=== PATIENT | female | born 1980 | race Caucasian/White ===

== ENCOUNTER 2020-04-09 06:30 | Inpatient (IN) | payer OTHER, SELFPAY ==
[2020-04-09] VITALS (14 sets, daily range): BP systolic 117–142; BP diastolic 64–89; PULSE 85–103; RESP 13–18; TEMP 36.6–36.7; O2SAT 98
[2020-04-09] MEDS: OXYTOCIN 30 UNITS/NS 500 ML 30 UNITS/500 ML BAG 999 UNITS IV CONT (06:54)
[2020-04-09 07:07] LABS: Basophils Absolute Auto 0.1 K/mm3 (0.0-0.1); Basophils Percent Auto 0.4 % (0.2-1.2); Eosinophils Absolute Auto 0.1 K/mm3 (0-0.3); Eosinophils Percent Auto 0.5 % (0-4.4); Hematocrit 38.2 % (37.0-47.0); Hemoglobin 12.5 g/dL (12.0-15.0); Immature Granulocyte Absolute 0.41 K/mm3 (0.00-0.031); Immature Granulocyte Percent A 3.1 % (0-0.5); Lymphocytes Absolute Auto 2.14 K/mm3 (0.9-3.2); Lymphocytes Percent Auto 16.4 % (18.3-44.2); Mean Corpuscular HGB Conc 32.7 g/dl (32-36); Mean Corpuscular Hemoglobin 29.8 pg (26-34); Mean Corpuscular Volume 91.2 fl (80-100); Mean Platelet Volume 11.2 fl (7.4-10.4); Monocytes Absolute Auto 0.8 K/mm3 (0.1-0.6); Neutrophils Absolute Auto 9.6 K/mm3 (1.3-6.7); Neutrophils Percent Auto 73.6 % (45.5-73.1); Nucleated Red Blood Cells Perc 0.3 % (0.0-0.2); Platelet Count Result 204 k/mm3 (150-375); Red Blood Count 4.19 M/mm3 (4.2-5.4); Red Cell Distribution Width 13.7 % (11.5-14.5); White Blood Count 13.1 K/mm3 (4.5-10.0)
--- NOTE | 2020-04-09 07:28 | PM.IMHP ---
H&P: HPI History of Present Illness Date/Time: 04/09/20 07:28 Chief Complaint: Term Narrative: Kellie Gramajo is a 39 year old female 3 para 3 who presented after delivery in the ambulance. She has no care. She thought she was 32 weeks. The infant appears term. She was known to have gestational diabetes in a previous . She began having contractions and quickly progressed through labor. She has no complaints at this time. She denies any nausea, vomiting, fever, chills. She denies any chest pain or shortness of breath. she denies vaginal bleeding at this time. Patient has 2 previous term deliveries. she has an unremarkable medical and surgical history. Review of Systems Constitutional: Constitutional: Reports no additional constitutional complaints, Denies fatigue, Denies headache(s), Denies lethargy and Denies weakness ENT: Reports as per HPI, Denies headache(s) and Denies neck pain Cardiovascular: Cardiovascular: Denies chest pain, Denies diaphoresis, Denies leg edema, Denies palpitations and Denies dyspnea Respiratory: Respiratory: Denies hemoptysis, Denies dyspnea and Denies wheezing Gastrointestinal: Gastrointestinal: Denies abdominal pain, Denies melena, Denies bloating, Denies hematochezia, Denies nausea and Denies vomiting Genitourinary: Genitourinary: Reports no additional female genitourinary complaints Musculoskeletal: Musculoskeletal: Denies joint swelling, Denies neck pain, Denies numbness and Denies stiffness Neurologic: Denies Abnormal speech present, Denies confusion, Denies headache(s), Denies numbness and Denies weakness Psychiatric: Psychiatric: Denies anxiety, Denies confusion, Denies depression, Denies homicidal ideation and Denies suicidal ideation Endocrine: Endocrine: Denies fatigue and Denies palpitations Allergic/Immunologic: Allergic/Immunologic: Denies wheezing Meds Home Medications and Allergies Allergies Allergy/AdvReac Type Severity Reaction Status Date / Time latex Allergy Mild Verified 02/26/18 22:19 Vital Signs Vital Signs - 24 hr 04/09/20 06:39 04/09/20 06:46 04/09/20 07:13 Pulse Rate 103 H 99 91 Blood Pressure 117/68 122/77 138/80 04/09/20 07:16 Pulse Rate 88 Blood Pressure 141/78 H Exam Const: General: healthy appearing, comfortable and no acute distress; No confusion Orientation/consciousness: No confusion Eyes: Direct Ophthalmoscopy: No photophobia Resp: Auscultation: clear to auscultation bilaterally, no rales, no rhonchi and no wheezes Cardio: Rate: regular rate Heart sounds: no click, no murmurs and no rubs GI: Inspection: non-distended GI Palp: No abdominal tenderness Auscultation: normal bowel sounds : Other: The vulva vagina and cervix appear normal for the immediate . No lacerations. There is some broken skin the posterior fourchette. Neuro: General: No confusion Speech: No Abnormal speech present Extrem: General: normal to inspection, no pedal edema and no calf tenderness H&P: Results Labs Labs: Short CBC 04/09/20 Range/Units 06:58 WBC 13.1 H (4.5-10.0) K/mm3 Hgb 12.5 (12.0-15.0) g/dL Hct 38.2 (37.0-47.0) % Plt Count 204 (150-375) k/mm3 Assessment and Plan Assessment and plan (1) Term delivered: Code(s): O80 - Encounter for full-term uncomplicated delivery Status: Acute (2) No care in current : Code(s): O09.30 - Supervision of with insufficient care, unspecified trimester Status: Acute Additional Plan this patient is a 39-year-old 3 para 3 who delivered in the ambulance. She has no complaints at this time. Her examination of the vagina and vulva were normal. The cervix appears intact. Placenta was delivered. We will obtain labs. She will be observed for 2 days and released. The baby appears well.
[2020-04-09] MEDS: OXYTOCIN 30 UNITS/NS 500 ML 30 UNITS/500 ML BAG 125 UNITS IV CONT (07:30)
[2020-04-09 07:31] LABS: Barbiturate Screen Urine Negative (Negative); Benzodiazepines Screen Urine Negative (Negative)
[2020-04-09 07:33] LABS: Cannabinoid Screen Urine Positive (Negative); Cocaine Screen Urine Negative (Negative); Methadone Screen Urine Negative (Negative); Opiate Screen Urine Negative (Negative); Phencyclidine Screen Urine Negative (Negative)
[2020-04-09 07:58] LABS: Amphetamine Screen Urine Positive (Negative)
[2020-04-09 08:01] LABS: Hepatitis B Surface Antigen Negative (Negative)
[2020-04-09 08:02] LABS: Rubella IgG Antibody 1.6 IU/ML
[2020-04-09 08:08] LABS: HIV 1/2 Ab P24 Ag Result Negative (Negative)
--- NOTE | 2020-04-09 08:10 | PC.NURSE ---
0620 Call from EMS about patient that states she is 32 weeks , with the urge to push. Patient states she is a patient of Dr. Melchor, but has had no care this . 0628- Patient arrived via ambulance. born at 0625, delivered by EMS. handed off to nursery personnel. Patient brought to room 106 via stretcher, transferred to bed. Placenta still intact. 06- Dr. Melchor called. Coming in. 0640- IV started, 18 g in L Hand. 0654- Placenta removed by Lucrecia Estevez RN, Pitocin infusing now at 999mls/hr. 07- Dr. Melchor at bedside. Vaginal exam completed, patient intact. 0810- Patient positive for amphetamines and marijuana. Upon entering room, patient has head covered with a blanket. patient questioned about drug use, denies any use, states that she hasnt taken anything. She has been asleep on the couch for days because of the discomfort from her hemorrhoids. states that a roommate in the house had drugs but they have gotten rid of all of them. The only thing she has taken has been extra strength tylenol. Patient informed of need to know what she has taken to help with care, she denies taking anything.
--- NOTE | 2020-04-09 08:34 | LDADM ---
This patient, Kellie Gramajo, was admitted to Labor/Delivery/Recovery 106 on 04/09/20 at 06:30. Plans for labor, pain management and were discussed with patient. Patient/family oriented to hospital policies and general routines including ID bracelet, bed and alarms, visiting hours, pain management, procedures, bathroom and other care routines, personal items, smoking policy, room service/diet and guest tray routines, infant security routines, and visiting hours. Patient/Family are encouraged to report perceived risks to care and to ask questions if they do not understand what they are told or what they should do. See [facility] for further documentation.
--- NOTE | 2020-04-09 10:25 | PC.NURSE ---
Patient transferred to post room #284 per wheelchair from labor and delivery. Support person present. Oriented to unit, room, information board, rooming in, admission packet and security measures. Patient verbalizes understanding.
--- NOTE | 2020-04-09 15:17 | PCCCNOTE ---
Care Coordination spoke with pt. this afternoon to discuss discharge planning. Pt.'s current discharge plan is to return home with her and 2 year son and baby. Pt. states that they have everything they need to safely bring baby home and that she will work on obtaining WIC to assist with providing formula for baby. Pt. was informed that she tested positive for Marijuana and Meth at time of admission. Pt. denies drug use and states that she was positive because of her roommate's drug use. Pt. states that her roommate no longer lives with them. Pt. delivered baby at 32 weeks and baby was transferred to [facility] after having difficulty breathing. Baby is now on a vent. CC informed pt. that a report would be made to [facility], pt. states understanding. CC spoke with Jazmin Parekh at [facility] who states that an urgent investigation will begin due to child's medical state. Pt.'s intake number with [facility] ins [id number]. Will follow.
--- NOTE | 2020-04-09 17:30 | PC.NURSE ---
DCFS worker Adeline Calderón here to see patient. A copy of her ID was placed on the patient's chart. Adeline states that she left messages with Libra in care coordination.
[2020-04-09] MEDS: IBUPROFEN 600 MG TABLET PO (20:50)
[2020-04-10 04:56] LABS: Hematocrit 32.2 % (37.0-47.0); Hemoglobin 10.7 g/dL (12.0-15.0)
[2020-04-10] MEDS: IBUPROFEN 600 MG TABLET PO (05:49)
[2020-04-10 08:10] VITALS: BP 116/72; PULSE 94; RESP 18; TEMP 36.5
--- NOTE | 2020-04-10 08:33 | PM.OBPNVD ---
OB - PN: Subj Subjective Date/time seen: 04/10/20 08:33 Patient comments: no complaints baby status: doing well OB - PN: Obj Data Labs CBC & Chem 7: 04/10/20 04:25 Labs: Laboratory Results - last 24 hr 04/09/20 04/10/20 06:58 04:25 Hgb 10.7 L Hct 32.2 L Blood Type O Positive Antibody Screen Negative OB - PN A/P Plan day: 1 Plan: routine care Time Spent With Patient Time: Total time spent is greater than 50% in coordination of care (as documented) at patient's floor/unit and/or counseling patient: Time with patient: less than 15 minutes Review of Systems Review of Systems: All systems reviewed & are unremarkable except as noted in HPI and below Exam Narrative: Exam Narrative: Fundus firm and vaginal flow controlled. No lower ext redness, warmth, or edema. Negative homans. Denies h/a, v/d or e/p. Reflexes normal. Const: General: comfortable Chest: Breast/axilla inspection: normal inspection of the breasts Resp: Effort & Inspection: normal respiratory effort Cardio: Rate: regular rate GI: GI Palp: Yes Soft to palpation Psych: Appearance: grossly normal Affect: normal affect Attitude: cooperative Thought content: Yes Normal thought content present Judgement: Good judgement present (Psych)
--- NOTE | 2020-04-10 09:45 | PC.NURSE ---
Patient received instructions on viewing the discharge video Mother & Baby Care, The First Two Weeks . Patient was given the opportunity and encouraged to ask questions. Patient verbalized understanding of information shared and has been given the mother/baby guide for home reference.
[2020-04-12 07:10] LABS: Rapid Plasma Reagin Non-Reactive (NonReactive)
--- NOTE | 2020-04-19 07:56 | PM.OBTRLD ---
OB - Triage/Final Diagnosis Evaluation Laboratory results: Laboratory Tests 04/09/20 04/09/20 04/09/20 06:58 06:58 06:58 WBC 13.1 H RBC 4.19 L Hgb 12.5 Hct 38.2 MCV 91.2 MCH 29.8 MCHC 32.7 RDW 13.7 Plt Count 204 MPV 11.2 H Immature Gran % (Auto) 3.1 H Neut % (Auto) 73.6 H Lymph % (Auto) 16.4 L Marin % (Auto) 6.0 Eos % (Auto) 0.5 Baso % (Auto) 0.4 Lymph # (Auto) 2.14 Marin # (Auto) 0.8 H Eos # (Auto) 0.1 Baso # (Auto) 0.1 Abs Immat Gran (auto) 0.41 H Absolute Neuts (auto) 9.6 H Absolute Nucleated RBC 0.0 Nucleated RBC % 0.3 H Urine Opiates Screen Urine Methadone Screen Ur Barbiturates Screen Ur Phencyclidine Scrn Ur Amphetamine Screen U Benzodiazepines Scrn Urine Cocaine Screen U Cannabinoids Screen RPR Non-reactive Hep Bs Antigen HIV 1&2 Ab/P24 Ag 4thGn Negative Rubella IgG Antibody Blood Type Antibody Screen 04/09/20 04/09/20 04/09/20 06:58 06:58 06:58 WBC RBC Hgb Hct MCV MCH MCHC RDW Plt Count MPV Immature Gran % (Auto) Neut % (Auto) Lymph % (Auto) Marin % (Auto) Eos % (Auto) Baso % (Auto) Lymph # (Auto) Marin # (Auto) Eos # (Auto) Baso # (Auto) Abs Immat Gran (auto) Absolute Neuts (auto) Absolute Nucleated RBC Nucleated RBC % Urine Opiates Screen Urine Methadone Screen Ur Barbiturates Screen Ur Phencyclidine Scrn Ur Amphetamine Screen U Benzodiazepines Scrn Urine Cocaine Screen U Cannabinoids Screen RPR Hep Bs Antigen Negative HIV 1&2 Ab/P24 Ag 4thGn Rubella IgG Antibody 1.6 L Blood Type O Positive Antibody Screen Negative 04/09/20 04/10/20 07:07 04:25 WBC RBC Hgb 10.7 L Hct 32.2 L MCV MCH MCHC RDW Plt Count MPV Immature Gran % (Auto) Neut % (Auto) Lymph % (Auto) Marin % (Auto) Eos % (Auto) Baso % (Auto) Lymph # (Auto) Marin # (Auto) Eos # (Auto) Baso # (Auto) Abs Immat Gran (auto) Absolute Neuts (auto) Absolute Nucleated RBC Nucleated RBC % Urine Opiates Screen Negative Urine Methadone Screen Negative Ur Barbiturates Screen Negative Ur Phencyclidine Scrn Negative Ur Amphetamine Screen Positive A U Benzodiazepines Scrn Negative Urine Cocaine Screen Negative U Cannabinoids Screen Positive A RPR Hep Bs Antigen HIV 1&2 Ab/P24 Ag 4thGn Rubella IgG Antibody Blood Type Antibody Screen Final Diagnosis (1) False labor: Code(s): O47.9 - False labor, unspecified Status: Acute
--- NOTE | 2020-05-03 07:52 | PM.OBDSVD ---
DS: Admitting Diagnosis Admitting Diagnosis Admitting Diagnosis: Vaginal delivery en route. DS: Discharge Diagnosis Discharge Diagnosis (1) Vaginal delivery: Code(s): O80 - Encounter for full-term uncomplicated delivery Status: Acute OB - DS: Summary OB Procedures : None OB Procedures Intrapartum: Spontaneous Vag Delivery OB Procedures: : None Time Spent with Patient Time attestation: Total time spent providing and/or coordinating discharge services: Discharge Plan Discharge Attending physician on discharge: Kael Melchor Consulting providers: Elenita Roman Discharging Clinician: Elenita Roman Patient Disposition: Home, Self-Care Activity: pelvic rest Diet: as tolerated Discharge Instructions: PP visit at hospital on Sunday. 1 week follow up in the office for bp check. PIH precautions given. Pt is aware the recommended stay is 72 hours but wants to go see at [facility]. Education: Mom and Baby Guide and Preeclampsia Handout Given to: Mother Follow-Up: Call your delivering provider's office for an appointment to be seen in: 1 Week Mom and baby should come to the [facility] for the follow-up appointment. Appointment Date/Time: April 12, 2020 at 3:00 pm What to expect at your follow-up visit: Physical Assessment Call [phone] if you are unable to keep your appointment time. BREAST CARE: * Wear a snug supportive bra. * For engorgement discomfort: Bottle Feeding: * May apply ice packs EPISIOTOMY/PERINEAL CARE: * Until bleeding stops, use your terri bottle after urinating * Change your pad frequently throughout the day * You may take sitz baths several times a day (fill your bathtub with warm water and soak for 20 minutes.) Do NOT bathe in the water * No tub baths until seen by your physician - You may shower ACTIVITY: * Rest as much as possible. * Do not exercise or lift anything heavier than your baby (such as laundry or other children.) * Avoid stairs or driving as much as possible. * Do not put anything into the vagina. No douching, tampons, or sexual activity until seen by physician. NOTIFY PHYSICIAN IF YOU HAVE ANY QUESTIONS OR IF ANY OF THE FOLLOWING SYMPTOMS OCCUR: * If your perineum becomes red, swollen, or more painful than what you have experienced in the hospital. * If your vaginal bleeding becomes foul smelling. * If your vaginal bleeding becomes more heavy than a period or if your bleeding changes from pink to bright red. However, you may pass an occasional walnut-sized clot once or twice for the first week . * If you experience a sharp, shooting pain in you calves. * If you discover a hard, reddened area on your breast or if you experience flu-like symptoms. DIET: * Eat regular, well-balanced meals. * Drink plenty of fluids daily. Stand Alone Forms: General Discharge Information Follow-up/Referrals: Kael Melchor MD [Physician] - Discharge Medications: No Action dicyclomine 10 mg capsule 10 mg PO TID Qty: 20 RF: 0 ondansetron HCl [Zofran] 4 mg tablet 4 mg PO Q6H Qty: 20 RF: 0 loperamide [Imodium A-D] 2 mg capsule 2 mg PO Q4H PRN (Reason: loose stool) Qty: 30 RF: 0 Date of admission: 04/09/20 06:30 Primary Care Provider: PHYSICIAN,FLUID DYNAMICIST Admitting Provider: Kael Melchor Attending physician on admission: Kael Melchor Condition: Stable
== END 2020-04-10 10:33 | disposition home or self-care (01) | DRG 561 ==
LOC: ANHLDR 07:14 → ANHOB2 10:35
PROVIDERS: Admitting Provider Obstetrics & Gynecology; Visit Provider Obstetrics & Gynecology
DX: Z39.0 Encounter for care and examination of mother immediately after delivery (principal)
CPT/HCPCS: 36415; 80307; 85014; 85018; 85025; 86592; 86703; 86762; 86850; 86900; 86901; 87340; A9270; G0432; J2590

== ENCOUNTER 2020-04-23 17:28 | Emergency (ER) | payer OTHER, SELFPAY ==
--- NOTE | 2020-04-23 17:57 | ED.URI ---
HPI - URI/Sore Throat General Chief Complaint: Nausea/Vomiting/Diarrhea Stated Complaint: abd pain/nausea Time Seen by Provider: 04/23/20 18:02 Source: patient Mode of arrival: ambulatory Limitations: no limitations History of Present Illness HPI Narrative: Kellie Gramajo is a 39 yo female with a history of early term delivery (), gestational diabetes, methamphetamine use on drug screen at delivery on 04/09/20, who comes to express care for complaints of abdominal pain and diarrhea x3 days. She states that she is unable to eat and if she tries that she really has to go to the bathroom within 1/2-hour, has been having semiformed and diarrheal stool x3 days is able drink fluids is not running a fever has no respiratory difficulty no shortness of breath. Related Data Allergies Allergy/AdvReac Type Severity Reaction Status Date / Time latex Allergy Mild Hives Verified 04/23/20 17:32 Review of Systems Review of Systems: Narrative: CONSTITUTIONAL: Denies fever, chills, sweats. EYES: Denies visual changes, redness, discharge. ENT: Denies rhinorrhea, congestion, sore throat, otalgia. CARDIOVASCULAR: Denies chest pain, palpitations, edema. RESPIRATORY: Denies dyspnea, wheezing, cough GASTROINTESTINAL: Denies abdominal pain, has nausea, no vomiting, has diarrhea. GENITOURINARY: Denies dysuria, hematuria, abnormal discharge SKIN: Denies rash or itching. NEUROLOGIC: Denies numbness, or focal weakness. PSYCHIATRIC: Denies anxiety or depression. [facility] Family History Family History Other Hypertension Social History Social History (Updated 04/23/20 @ 18:23 by Elo Piedra CNP) Smoking packs per day: 0.25 Smoking cigarettes per day: 5.0 Smoking status: Current every day smoker Tobacco type: cigarettes Substance use: current Substance use type: marijuana and amphetamines Gender identity (if verbalized by the patient): Female Spiritual care concerns: No Comments At time of signature, I agree with nursing past medical, surgical, social and family history. There is no relevant family history pertinent to the presenting complaint. Blood pressure is elevated-referred to primary care for evaluation of elevated blood pressure; patient states has follow-up with [facility] this next week Exam Narrative: Exam Narrative: GENERAL: This is a well-nourished, well-developed patient, in mild distress. HEAD: normocephalic, atraumatic. EYES: Sclera clear/white. Vision is grossly intact. EARS: External ears normal, . Hearing grossly intact. NOSE: External nose normal without nasal discharge, nares without redness, no rhinorrhea. THROAT: Mucous membranes moist, posterior pharynx mildly dry mucous membranes NECK: Neck supple, non-tender CARDIOVASCULAR: Regular rate and rhythm without murmurs, gallops, or rubs. RESPIRATORY: Clear to auscultation. Breath sounds equal bilaterally. No wheezes, rales, or rhonchi. GASTROINTESTINAL: Abdomen soft, SKIN: warm, intact with no suspicious lesions or rash, good texture and turgor. NEURO: awake, alert, and oriented to person, place and time. There were no obvious focal neurologic abnormalities. Steady gait EXTREMITIES: Normal range of motion. BACK: Nontender without deformity Course Course Emergency Course: Came to here with complaints of nausea and diarrhea x3 days. States that she eats she has to use it the bathroom within 1/2-hour has been able to drink fluids without any problem. She and are staying in the house along her 2-year-old is staying with 's mother Covid test done-negative Encourage oral fluids- started on bentyl, zofran, imodium. BRAT diet referred to primary care Vital Signs Vital signs: Vital Signs Temperature 97.1 F L 04/23/20 17:58 Pulse Rate 99 04/23/20 17:58 Respiratory Rate 18 04/23/20 17:58 Blood Pressure 132/100 H 04/23/20 17:58 Pulse Oximetry 100 04/23/20 17:58 Temperatu
[2020-04-23 17:58] VITALS: BP 132/100; PULSE 99; RESP 18; TEMP 36.2; O2SAT 100
== END 2020-04-23 18:38 | disposition home or self-care (01) ==
PROVIDERS: Emergency Provider Nurse Practitioner
DX: O99.63 Diseases of the digestive system complicating the puerperium (principal); K52.9 Noninfective gastroenteritis and colitis, unspecified; Z20.822 Contact with and (suspected) exposure to COVID-19; O99.335 Smoking (tobacco) complicating the puerperium; F17.210 Nicotine dependence, cigarettes, uncomplicated
CPT/HCPCS: 87426; 99213; C9803; G0463

== ENCOUNTER 2024-05-27 10:02 | Emergency (ER) | payer BC, SELFPAY ==
[2024-05-27 10:18] VITALS: BP 142/72; PULSE 117; TEMP 36.8; O2SAT 98
--- OUTSIDE RECORDS SUMMARY | 2024-05-27 11:33 | XMS_ITS | Clinical Summary ---
Author Organization [facility] Address [address] [place] [address] Care Team Providers Care Sports Betting Manager Name Role Phone Unavailable Primary Care Provider Unavailabl e Source Comments [facility],non-owned Affiliates and Associated Physician Practices is amultiple site organization consisting of ambulatory clinics and hospital sitesin [place], [place], [place] and [place]. This disclosure is being madepursuant to the Care Everywhere program and may not contain all information available regarding this patient. Last updated 17.[facility] Allergies Active Allergy Reactions Criticality Noted Date Comments Latex Rash Medium 09/14/2017 Medications * Be aware that medications may not be up to date on this document. Alwaysverify current medications with the patient. Medication Sig Dispensed Refills Start Date End Date Status insulin NPH (HUMULIN N; NOVOLIN N) vial 15 units before breakfast and 20 units before dinner Active Vit-Fe Fumarate-FA ( VITAMIN) 28-0.8 MG tablet Take 1 tablet by mouth once daily Active ferrous sulfate 325 (65 FE) MG tablet Take 325 mg by mouth once daily Active Active Problems Problem Noted Date Diagnosed Date Insulin controlled gestation al diabetes mellitus (GDM) during , antepartum 09/14/2017 Poor growth, affecting management of mother, antepartum condition or complication 07/19/2017 Social History Tobacco Use Types Packs/Day Years Used Date Smoking Tobacco: Never Assessed Sex and Gender Information Value Date Recorded Sex Assigned at Female 2020 2:37 PM CDT Gender Identity Female 2020 2:37 PM CDT Sexual Orientation Straight 2020 2: 37 PM CDT Last Filed Vital Signs Vital Sign Reading Time Taken Comments Blood Pressure 121/76 09/14/2017 12:33 PM CDT Pulse 76 09/14/2017 12:33 PM CDT Temperature - - Respiratory Rate - - Oxygen Saturation - - Inhaled Oxygen Concentration - - Weight - - Height - - Body Mass Index - - Plan of Treatment Health Maintenance Due Date Last Done Comments LIPID TESTING 1982 MAMMOGRAM 1982 PAP SMEAR 1982 HIV SCREENING 1997 HEPATITIS C SCREENING 12/24/2000 DTAP/TDAP/TD VACCINES (1 - Tdap) 2001 HEPATITIS B VACCINE (1 of 3 - 19+ 3-dose series) 2001 COVID-19 VACCINE ( - 2023-2 5 season) 2023 INFLUENZA VACCINE (#1) 2023 3, 12/15/2020 DEPRESSION SCREENING 04/02/2024 ZOSTER VACCINE (1 of 2) 2032 HIB VACCINE Aged Out No longer eligi ble based on patient's age to complete this topic HPV VACCINE Aged Out No longer eligi ble based on patient's age to complete this topic MENINGOCOCCAL (Group B) VACCINE Aged Out No longer eligible b ased on patient's age to complete this topic MENINGOCOCCAL VACCINE Aged Out No raul cayden eligible based on patient's age to complete this topic PNEUMOCOCCAL VACCINE Aged Out No long er eligible based on patient's age to complete this topic
--- OUTSIDE RECORDS SUMMARY | 2024-05-27 11:34 | XMS_ITS | Patient Health Summary ---
Author Organization [facility] Address [address] [address] Care Team Providers Care Aircraft Sales Representative Name Role Phone Unavailable Primary Care Provider Unavailabl e Note from [facility],non-owned Affiliates and Associated Physician Practices is amultiple site organization consisting of ambulatory clinics and hospital sitesin [place], [place], [place] and [place]. This disclosure is being madepursuant to the Care Everywhere program and may not contain all information available regarding this patient. Last updated 17.[facility] Allergies * Latex(Rash) -Medium Criticality Medications * Be aware that medications may not be up to date on this document. Alwaysverify current medications with the patient. * insulin NPH (HUMULIN N; NOVOLIN N) vial 15 units before breakfast and 20 units before dinner * Vit-Fe Fumarate-FA ( VITAMIN) 28-0.8 MG tablet Take 1 tablet by mouth once daily * ferrous sulfate 325 (65 FE) MG tablet Take 325 mg by mouth once daily Active Problems Problem Noted Date Diagnosed Date [...] - - Body Mass Index - - Procedures * SONOGRAM - COMPLETE(Performed 09/14/2017) Performed for Poor growth affecting management of mother, antepartum, single or unspecified fetus (HCC) * SONOGRAM - COMPLETE(Performed 08/10/2017) Performed for Poor growth affecting management of mother, antepartum, single or unspecified fetus (HCC) * SONOGRAM - LIMITED(Performed 08/03/2017) Performed for Poor growth affecting management of mother, antepartum, single or unspecified fetus (HCC) * SONOGRAM - COMPLETE(Performed 07/27/2017) Performed for Poor growth affecting management of mother, antepartum, single or unspecified fetus (HCC) Results * SONOGRAM - COMPLETE (09/14/2017 11:27 AM CDT) Only the most recent of3 resultswithin the time period is included. Anatomical Region Laterality Modality Other 09/14/2017 11:2 7 AM CDT Narrative 09/14/2017 5:[address] [facility] PHONE: FAX: Pat. Name: KELLIE GRAMAJO Pat. No: [id number] Study Date: 09/14/2017 11:27am , Age: 09 1980, 36 Pregnancies: 3, Para 1, Ab 1 Height: 66 in Weight: 121 lb LMP: Unknown GA by Base: 35w4d PATRIC: 10/15/2017 GA by US: 33w4d PATRIC: 10/29/2017 GA Selected: 35w4d (From Known E) PATRIC: 10/15/2017 Referring MD: Portillo Melchor MD Cast Iron Dipper: Danna Fuentes RDMS CPT4: 23721,40089,23987,53383 BMI: 19.53 Hist/Ind: Possible FGR (borderline SGA with elevated umbilical artery PI on 07/27) MEASUREMENTS & AGE GROWTH EVALUATION Measurement GA Range Srce %for GA Ratios ----- ---- ------- BPD 7.9 cm 31w6d (92m0g-08g2l) Hadl BPD <01 FL/BPD 0.83 (0.71 - 0.87) HC 30.6 cm 34w1d (58i5r-90g4u) Hadl HC 3% FL/AC 0.22 (0.20 - 0.24) AC 30.6 cm 34w4d (48e6o-70f7d) Hadl AC 30% HC/AC 1.00 (0.93 - 1.12) FL 6.6 cm 34w0d (27x4f-67i9p) Hadl FL 9% CI 0.71 (0.70 - 0.86) HL 5.8 cm 33w2d (33x9h-09s5y) Werner HL 13% GA for sonogram 33w4d (79a3a-42u5n) Weight Estimate: based on (HL,BPD,HC,AC,FL) Avg Weight: 2343 gm (2000-2685gm) Had : 5lbs, 2oz Normal: 2720 gm (0-3399gm) Had Wt% 14% for 35w4d Heart Rate: 136 bpm Amniotic Fluid Index: 17.0cm (07.8-24.9) Q1: 4.9cm Q2: 4.2cm Q3: 4.7cm Q4: 3.3cm Biophysical Profile: 01/09 Breathin Tone: 2 NST: 2 Movement: 2 AFV: 2 EVAL, PLACENTA Presentation: cephalic Umbilical Cord: 3 Vessels Placenta: anterior Heart Rate: 136 bpm Amniotic Fluid Volume: normal DOPPLER Umbilical - Mid Cord S/D 3.38(1.66 - 3.54) PI 1.20 (0.59 - 1.17) * Middle Cerebral Artery PSV 59.7cm/s PI 2.12 (1.42 - 2.57) Med PSV 52.5cm/s MoM 1.14(<1.5) CLINICAL SUMMARY Study Number: 4 Today's ultrasound is performed to evaluate for abnormal growth. A Single fetus is identified in the cephalic position. The amniotic fluid volume is normal. The placenta is anterior. The overall estimated weight is appropriate. The estimated due date is based on an outside first-trimester crown rump length (confirmed). The abdominal circumference is greater than 30th percentile, which is reassuring. NST: Baseline 130, moderate variability, 15 x 15 accelerations, no decelerations; impression: Reactive. [place]: Irregular contractions. Doppler studies: The umbilical artery pulsatility index is marginally increased, which suggests increased placental resistance. No sign of brain sparing adaptation by middle cerebral artery pulsatility index. A calculated cerebroplacental ratio is unremarkable, which is reassuring. IMPRESSION: Single live IUP 35w4d normal amniotic fluid Appropriate growth Reassuring testing Abnormal umbilical artery Dopplers Today's exam does not demonstrate growth restriction. In diagnosing growth restriction by ultrasound, abdominal circumference less than the 10th percentile has the greatest sensitivity an estimated weight less than the 3rd percentile has the greatest specificity. The umbilical artery Doppler study demonstrates increased placental resistance. This finding may suggest an abnormality of the specific artery interrogated or an evolving abnormality of placental function. RECOMMEND: Recommend weekly 10 point biophysical profile Repeat growth and Doppler studies in 2 weeks (interrogate multiple sites along each umbilical artery, as well as ductus venosus Doppler). Consider consultation with Maternal- Medicine at that next exam. Thank you for the opportunity to participate in care of this patient. Lili Youngblood MD <Electronic Signature> 09/14/2017 05:48pm Muriel Villagomez MD [facility] ORDERABLES * SONOGRAM - LIMITED (08/03/2017 10:44 AM CDT) Anatomical Region Laterality Modality Other 08/03/2017 10:4 4 AM CDT Narrative 08/03/2017 11:[address] [facility] PHONE: FAX: Pat. Name: KELLIE GRAMAJO Pat. No: [id number] Study Date: 08/03/2017 10:44am , Age: 09 1980, 36 Pregnancies: 3, Para 1, Ab 1 Height: 66 in Weight: 121 lb LMP: Unknown GA by Base: 29w4d PATRIC: 10/15/2017 GA Selected: 29w4d (From Known E) PATRIC: 10/15/2017 Referring MD: Portillo Melchor MD [employer] Dipper: Danna Fuentes RDMS CPT4: 47586,15548 BMI: 19.53 Hist/Ind: Possible FGR (borderline SGA with elevated umbilical artery PI on 07/27) Heart Rate: 136 bpm Amniotic Fluid Index: 18.1cm (09.1-23.3) Q1: 6.1cm Q2: 3.5cm Q3: 4.7cm Q4: 3.8cm EVAL, PLACENTA Heart Rate: 136 bpm DOPPLER Umbilical - Mid Cord S/D 3.69(1.99 - 4.15) PI 1.22 (0.71 - 1.30) CLINICAL SUMMARY Study number: 2 IMPRESSION: 1) Mackey gestation, 29w4d 2) The amniotic fluid volume is within normal limits 3) Umbilical Dopplers now reveal no evidence of increased arterial resistence RECOMMEND: Follow up ultrasound in 1 week to reevaluate growth with additional testing (Dopplers, BPP, etc.) at that time only if / as clinically indicated based on that assessment Thank you for allowing us the opportunity to care for your patient. Swathi Dangelo MD <Electronic Signature> 08/03/2017 11:22am Muriel Villagomez MD [facility] ORDER[facility]LES
--- OUTSIDE RECORDS SUMMARY | 2024-05-27 11:34 | XMS_ITS | Data Portability ---
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 Plan of Treatment Reminders Order Date Submit Date Provider Last Modified By Organization Details Last Modified Time Details Appointments None recorded. Lab test, urine 2016 017 shira In-Office Order, Internal Use Only DO Not Attach Compendium DO Not Attach Compendium, Do Not Delete/merge, [id number] 7 16:26:13 urinalysis , dipstick 2016 017 shira In-Office Order, Internal Use Only DO Not Attach Compendium DO Not Attach Compendium, Do Not Delete/merge, [id number] 7 16:26:13 RPR (rapid plasma reagin), serum - Please fax results to [facility] 2016 017 ARMANDO [facility], [address] [facility], [address], [place], [address], 7 20:09:02 culture, urine - Please fax results to [facility] 2016 017 ARMANDO [facility], [address] [facility], [address], [place], [address], 7 20:09:04 HCG, intact + beta subunit, quant, serum or plasma - Please fax results to [facility] 2016 017 [facility], [address] [address], [address], [place], [address], 7 20:09:00 HSV (1+2) DNA, qual, PCR, unspecifie d specimen - Please fax results to [facility] 2016 017 ARMANDO [facility], [address] [place] [address] [address], [address], [place], [address], 7 14:12:08 culture, vaginal/re ctal, streptococ cus group B - Please fax results to [facility] 2016 017 ARMANDO [facility], [address] [place] [address], [address], [place], [address], 7 14:12:13 varicella- zoster igg Ab screen, serum - Fax results to [facility] 2016 017 rhunley [facility], [address] [place] [address], [address], [place], [address], 7 13:14:48 CBC w/ auto diff - Please fax results to [facility] 2016 017 ARM[facility], [address] [place] [address], [address], [place], [address], 7 20:08:59 progestero ne, serum - Please fax results to [facility] 2016 017 [facility], [address] [place] [address], [address], [place], [address], 7 20:09:03 hsv-2 (herpes simplex virus type 2) igg Ab, serum - Please fax results to [facility] 2016 017 [facility], [address] [place] [address], [address], [place], [address], 7 20:09:03 HBsAg (hepatitis B surface Ag), EIA, serum - Please fax results to [facility] 2016 017 [facility], [address] [place] [address], [address], [place], [address], 7 20:09:04 rubella IgG Ab, quant immunoassa y, serum or plasma - Please fax results to [facility] 2016 017 [facility], [address] [place] [address], [address], [place], [address], 7 20:09:01 type + screen, serum - Please fax results to [facility] 2016 017 [facility], [address] [place] [address], [address], [place], [address], 7 20:08:59 HIV 1+2 AB + HIV 1 p24 Ag, qualitativ e immunoassa y, serum - please fax results to [facility] [phone] 2016 017 [facility], [address], [address], [address], 7 20:09:02 unlisted lab - toxassure select 13 (mw) 2016 017 ARMANDO [facility], [address], [address], [place], [address], 7 20:08:58 bacterial vaginosis + vaginitis panel, vaginal - Please fax results to [facility] 2016 017 ARM[facility], [address], [address], [place], [address], 7 14:12:05 hemoglobin S (hbs), presence, blood - Please fax results to [facility] 2016 017 AKIACHAK [facility], [address] [place], [place] [address]ma[address], [address], [place], [address], 7 20:09:01 TSH, 2nd Generation , QN, serum or plasma - [id number] 2016 017 rhunley [facility], [address], [address], [place], [address], 7 13:14:48 test, urine 2016 017 mary kay In-Office Order, Internal Use Only DO Not Attach Compendium DO Not Attach Compendium, Do Not Delete/merge, [id number] 7 11:48:57 HCG, intact + beta subunit, quant, serum or plasma - Please fax results to [facility] 2016 017 [facility], [address], [address], [place], [address], 7 07:14:08 progestero ne, serum - Please fax results to [facility] 2016 017 ARMANDO [facility], [address], [address], [place], [address], 7 07:14:08 CMP, serum or plasma 2016 017 [facility], [address], [address], [place], [address], 7 12:18:16 lipid panel, serum 2016 017 ARMANDO MACEDOLETITIA, [address], [address], [place], [address], 7 12:18:16 pap, IG + HPV, cervical 2014 015 ARMANDO MACEDOLETITIA, [address], [address], [place], [address], 5 17:17:16 CMP, serum or plasma 2014 015 nitinpierre MACEDOLETITIA, [address], [address], [place], [address], 5 15:15:03 urinalysis , complete 2014 015 nitinpierre BUTCH, [address], [address], [place], [address], 5 15:15:03 CBC 2014 015 nitinpierre BUTCH, [address], [address], [place], [address], 5 15:15:04 lipid panel, serum 2014 015 nitinpierre BUTCH, [address], [address], [place], [address], 5 15:15:04 Referral physical therapy knee referral - please call patient to schedule apptDany holley 2016 017 [email or web address] [facility], [address] [place], [address], 7 11:51:32 Procedures None recorded. Surgeries None recorded. Imaging US, obstetric, 1st trimester - Z34.9, Z36, Z34 2016 017 [facility] ([facility]), [address] [place], [address], 7 10:28:55 Medication Orders Macrobid 100 mg capsule 2016 017 [facility] #75891, [address], [place], [id number], 7 15:35:34 Vitamin tablet 2016 017 [facility] #35406, [address], [place], [id number], 7 16:26:13 Calcium with Vitamin D3 600 mg (carbonate )-10 mcg (400 unit) capsule 2016 017 [employer] [facility]59, [address], [place], [id number], 7 16:26:13 Vitamin tablet 2016 017 [facility] #64750, [address], [place], [id number], 7 11:50:37 Calcium with Vitamin D3 600 mg (carbonate )-10 mcg (400 unit) capsule 2016 017 [facility] #11096, [address], [place], [place], [id number], 7 11:50:37 cetirizine 10 mg tablet 2016 017 mary kay [facility] #24630, [address], [place], [place], [id number], 7 12:01:16 Patient TargetsNo targets recorded. Patient Instructions Encounter Date Encounter Id Patient Instructions Last Modified By Organization Details Last Modified Time 01/25/2015 [id number] Nick schedule pap smear for next appointment Taking vitamin because she is actively trying to conceive [email or web address] Not available 01/25/2015 12:21:28 12/07/2016 [id number] Will sign SAMI toi Sykes ER note eewig Not available 12/07/2016 12:14:46 03/16/2017 [id number] Urinary Tract Infection (UTI) in Women: Care Instructions [email or web address] Not available 03/16/2017 15:45:06 The following is a list of safe medications which you can use during . Be sure to let your physician know if you are starting or have started a new medication. Pain Medication: Tylenol (acetaminophen) for minor aches and pains Decongestants/Cou gh Medicine: Sudafed (pseudoephedrine) avoid if you have high blood pressure Robitussin CF, DM Tavist D [place] Mist Nasal Welches Antihistamines: Claritin and Claritin D Benadryl Dimetapp Jill and Jill D Zyrtec Heartburn/Indiges tion: Tums Rolaids Gas X Mylanta Maalox Pepcid Zantac *DO NOT USE PEPTO BISMOL* Nausea: Small, frequent meals of bland foods such as dry toast, dry cereal, saltine crackers Vitamin B6 Doxylamine (unisom) Sea Bands Diarrhea: Imodium/Imodium AD Constipation: Colace Metamucil Miralax FiberCon Citrucel Milk of Magnesium Hemorrhoids: Preparation H Tucks Anusol Yeast Infections: Monistat Gyne-Lotrimin Toothaches: Orajel Not available 03/16/2017 14:40:53 Reason for Referral please call patient to sched sana appt. [email or web address] Referring Physician: Niesha Souza, Family Medicine, Encounter Date: 12/07/2016 Results Created Date Observation Date Name Description Value Unit Range Abnormal Flag Note LastModifiedBy Organization Detail LastModifiedTime 03/16/20 17 03/16/2017 urina lysis , dipst ick Leukocytes Large Not Available In-Offi ce Order Internal Use Only DO Not Attach Compendium DO Not Attach Compendium, Do Not Delete/merge, [id number] 03/16/2017 14:41:31 03/16/20 17 03/16/2017 urina lysis , dipst ick Nitrite negati ve Not Available In-Office Order Internal Use Only DO Not Attach Compendium DO Not Attach Compendium, Do Not Delete/merge, [id number] 03/16/2017 14:41:31 03/16/20 17 03/16/2017 urina lysis , dipst ick Urobilinogen .2 Not Available In-Of fice Order Internal Use Only DO Not Attach Compendium DO Not Attach Compendium, Do Not Delete/merge, [id number] 03/16/2017 14:41:31 03/16/20 17 03/16/2017 urina lysis , dipst ick Protein Negati ve Not Available In-Office Order Internal Use Only DO Not Attach Compendium DO Not Attach Compendium, Do Not Delete/merge, [id number] 03/16/2017 14:41:31 03/16/20 17 03/16/2017 urina lysis , dipst ick pH 6.5 Not Available In-Office Order Internal Use Only DO Not Attach Compendium DO Not Attach Compendium, Do Not Delete/merge, [id number] 03/16/2017 14:41:31 03/16/20 17 03/16/2017 urina lysis , dipst ick Blood Negati ve Not Available In-Office Order Internal Use Only DO Not Attach Compendium DO Not Attach Compendium, Do Not Delete/merge, [id number] 03/16/2017 14:41:31 03/16/20 17 03/16/2017 urina lysis , dipst ick Specific [place] 1.020 Not Available In-Off ice Order Internal Use Only DO Not Attach Compendium DO Not Attach Compendium, Do Not Delete/merge, [id number] 03/16/2017 14:41:31 03/16/20 17 03/16/2017 urina lysis , dipst ick Ketone Negati ve Not Available In-Office Order Internal Use Only DO Not Attach Compendium DO Not Attach Compendium, Do Not Delete/merge, [id number] 03/16/2017 14:41:31 03/16/20 17 03/16/2017 urina lysis , dipst ick Bilirubin Negati ve Not Available In-Office Order Internal Use Only DO Not Attach Compendium DO Not Attach Compendium, Do Not Delete/merge, [id number] 03/16/2017 14:41:31 03/16/20 17 03/16/2017 urina lysis , dipst ick Glucose Negati ve Not Available In-Office Order Internal Use Only DO Not Attach Compendium DO Not Attach Compendium, Do Not Delete/merge, [id number] 03/16/2017 14:41:31 03/16/20 17 03/16/2017 pregn leon test, urine HCG positi ve Not Available In-Office Order Internal Use Only DO Not Attach Compendium DO Not Attach Compendium, Do Not Delete/merge, [id number] 03/16/2017 14:41:25 02/22/20 17 02/21/2017 pregn leon test, urine HCG positi ve Not Available In-Office Order Internal Use Only DO Not Attach Compendium DO Not Attach Compendium, Do Not Delete/merge, [id number] 02/21/2017 11:46:37 01/28/20 15 02/01/2015 pap, IG + HPV, cervi magdalena diagnosis: COMMEN T NEGAT LISA FOR INTRA EPITH ELIAL LESIO N AND FATEMEH NAVAS . Not Available [facility] ([facility]) [address] [facility], [place], [address], 02/02/2015 17:17:15 01/28/20 15 02/01/2015 pap, IG + HPV, cervi magdal[place] specimen adequacy: COMMEN T SATIS FACTO RY FOR EVALU ATION . ENDOC ERVIC AL AND/O R SQUAM OUS METAP LASTI C CELLS (ENDO CERVI MAGDALENA COMPO NENT) ARE PRESE NT. Not Available [facility] ([facility]) [address] [facility], [place], [address], 02/02/2015 17:17:15 01/28/20 15 02/01/2015 pap, IG + HPV, cervi [place]dal[place] clinician provided ICD10: MATTHEW Pandya Z01.4 19 Not Available [facility] ([facility]) [address] [place], [address], 02/02/2015 17:17:15 01/28/20 15 02/01/2015 pap, IG + HPV, cervi magdalena performed by: MATTHEW OLSEN , ARI Pandya (ASCP ) Not Available [facility] ([facility]) [address] [place], [address], 02/02/2015 17:17:15 01/28/20 15 02/01/2015 pap, IG + HPV, cervi magdalena . . Not Available [facility] ([facility]) [address] [place], [address], 02/02/2015 17:17:15 01/28/20 15 02/01/2015 pap, IG + HPV, cervi magdalena note: MATTHEW Pandya THE PAP SMEAR IS A SCREE BAY TEST DESIG ELEONORA TO AID IN THE DETEC TION OF LOIS LIGNA NT AND MALIG NANT CONDI TIONS OF THE UTERI NE CERVI X. IT IS NOT A DIAGN OSTIC PROCE DURE AND SHOUL D NOT BE USED THE SOLE MEANS OF DETEC TING CERVI MAGDALENA CANCE R. BOTH FALSE -POSI TIVE AND FALSE -NEGA TIVE REPOR TS DO OCCUR . Not Available [facility] ([facility]) [address] [place], [address], 02/02/2015 17:17:15 01/28/20 15 02/01/2015 pap, IG + HPV, cervi mag[place] test methodology: MATTHEW Pandya THIS LIQUI D BASED THINP REP(R ) PAP TEST WAS SCREE ELEONORA WITH THE USE OF AN IMAGE GUIDE Albert SYSTClaudy Soto. Not Available [facility] ([facility]) [address] [place], [address], 02/02/2015 17:17:15 01/28/20 15 02/02/2015 pap, IG + HPV, cervi magdalena HPV aptima NEGATI VE negati ve THIS TEST DETEC TS FOURT EEN HIGH- RISK HPV TYPES (16/1 8/31/ 33/35 /39/4 5/ 51/52 /56/5 8/59/ 66/68 ) WITHO UT DIFFE RENTI ATION . Not Available [facility] ([facility]) [address] [facility], [place], [address], 02/02/2015 17:17:15 02/22/20 17 02/22/2017 HCG, intac t + beta subun it, quant , serum or plasm a HCG,beta subunit,qnt, serum 25598 mIU/m L Femal e (Non- pregn ant) 0 - 5 (Post menop ausal ) 0 - 8 Femal e (Preg nant) Weeks of Gesta tion 3 6 - 71 4 10 - 750 5 217 - 1238 6 158 - 64756 7 0327 -8148 63 8 15358 -1528 71 9 470060 -7456 10 10 06009 -7616 77 12 81680 -2336 12 14 69466 - 16467 15 27363 - 83742 16 3681 - 11555 17 2289 - 51466 18 1296 - 26291 [place] ECLIA metho dolog y Not Available [facility] ([facility]) [address] [facility], [place], [address], 02/22/2017 07:14:07 02/22/20 17 02/22/2017 proge stero ne, serum progesterone 19.4 NG/mL Folli cular phase 0.1 - 0.9 Lutea l phase 1.8 - 23.9 Ovula tion phase 0.1 - 12.0 Pregn ant First trime ster 11.0 - 44.3 Secon d trime ster 25.4 - 83.3 Third trime ster 58.7 - 214.0 Postm enopa usal 0.0 - 0.1 Not Available [facility] ([facility]) [address] [place], [address], 02/22/2017 07:14:08 03/16/20 17 03/19/2017 bacte rial vagin osis + vagin itis panel , vagin al chlamydia trachomatis, IRIS Negati ve negati ve Not Available [facility] ([facility]) [address] [place], [address], 03/21/2017 14:12:04 03/16/20 17 03/19/2017 bacte rial vagin osis + vagin itis panel , vagin al neisseria gonorrhoeae, IRIS Negati ve negati ve Not Available [facility] ([facility]) [address] [place], [address], 03/21/2017 14:12:04 03/16/20 17 03/20/2017 bacte rial vagin osis + vagin itis panel , vagin al nathaniel albicans, IRIS Negati ve negati ve Not Available [facility] ([facility]) [address] [place], [address], 03/21/2017 14:12:04 03/16/20 17 03/20/2017 bacte rial vagin osis + vagin itis panel , vagin al nathaniel glabrata, IRIS Negati ve negati ve This test was devel oped and its perfo rmanc e amira cteri stics deter mined by [facility]. It has not been clear ed or appro tai by the Food and Drug Admin istra tion. The FDA has deter mined that such clear ance or appro kristel is not neces miky. Not Available [facility] ([facility]) [address] [place], [address], 03/21/2017 14:12:04 03/16/20 17 03/20/2017 bacte rial vagin osis + vagin itis panel , vagin al trich vag by IRIS Positi ve negati ve abnormal Not Available [facility] ([facility]) [address] [place], [address], 03/21/2017 14:12:04 03/16/20 17 03/21/2017 bacte rial vagin osis + vagin itis panel , vagin al atopobium vaginae High - 2 score abnormal Not Available [facility] ([facility]) [address] [facility], [place], [address], 03/21/2017 14:12:04 03/16/20 17 03/21/2017 bacte rial vagin osis + vagin itis panel , vagin al bvab 2 High - 2 score abnormal Not Available [facility] ([facility]) [address] [place], [address], 03/21/2017 14:12:04 03/16/20 17 03/21/2017 bacte rial vagin osis + vagin itis panel , vagin al megasphaera 1 High - 2 score abnormal Calcu late total score by madhavi g the 3 indiv idual bacte rial vagin osis (BV) marke r score s toget her. Total score is inter prete d as follo ws: Total score 0-1: Indic ates the absen ce of BV. Total score 2: Indet ermin ate for BV. Addit ional clini magdalena data shoul d be evalu ated to estab krista a diagn osis. Total score 3-6: Indic ates the prese nce of BV. This test was devel oped and its perfo rmanc e amira cteri stics deter mined by [facility]. It has not been clear ed or appro tai by the Food and Drug Admin istra tion. The FDA has deter mined that such clear ance or appro kristel is not neces miky. Not Available [facility] ([facility]) [address] [facility], [place], [address], 03/21/2017 14:12:04 03/16/20 17 03/20/2017 HSV (1+2) DNA, qual, PCR, unspe cifie d speci men hsv 1 IRIS Negati ve negati ve Not Available [facility] ([facility]) [address] [facility], [place], [address], 03/21/2017 14:12:07 03/16/20 17 03/20/2017 HSV (1+2) DNA, qual, PCR, unspe cifie d speci men hsv 2 IRIS Negati ve negati ve Not Available [facility] ([facility]) [address] [facility], [place], [address], 03/21/2017 14:12:07 03/16/20 17 03/18/2017 cultu re, vagin al/re ctal, strep tococ cus group B strep gp B IRIS Negati ve negati ve Cente rs for Disea se Contr ol and Preve ntion (CDC) and Ameri can Congr ess of Obste trici ans and Gynec ologi sts (ACOG ) guide lines for preve ntion of perin atal group B strep tococ magdalena (GBS) disea se speci fy co-co llect ion of a vagin al and recta l swab speci men to maxim ize sensi tivit y of GBS detec tion. Per the CDC and ACOG, swabb ing both the lower vagin a and rectu m subst antia lly incre ases the yield of detec tion heber red with sampl ing the vagin a alone . Penic illin G, ampic illin , or cefaz tonya are indic ated for intra partu m proph ylaxi s of perin atal GBS colon izati on. Refle x susce ptibi lity testi ng shoul d be perfo rmed prior to use of clind amyci n only on GBS isola jomar from penic illin -rodney rgic women who are consi dered a high risk for anaph ylaxi s. Treat ment with vanco mycin witho ut addit ional testi ng is warra nted if resis tance to clind amyci n is noted . Not Available [facility] ([facility]) [address] [facility], [place], [address], 03/21/2017 14:12:13 03/16/20 17 03/22/2017 toxas sure selec t 13 (mw) report summary FINAL ===== ===== ===== ===== ===== ===== ===== ===== ===== ===== ===== ===== ===== === TOXAS SURE SELEC T 13 (MW) ===== ===== ===== ===== ===== ===== ===== ===== ===== ===== ===== ===== ===== === Test Resul t Flag Units Drug Prese nt Benzo ylecg onine 93 ng/mg creat Benzo ylecg onine is a metab olite of cocai ne; its prese nce indic ates use of this drug. Sourc e is most commo nly illic it, but cocai ne is prese nt in some topic al anest hetic solut ions. Carbo xy-TH C >529 ng/mg creat Carbo xy-TH C is a metab olite of tetra hydro canna binol (THC) . Sourc e of THC is most commo nly illic it, but THC is also prese nt in a sched uled presc ripti on medic ation . ===== ===== ===== ===== ===== ===== ===== ===== ===== ===== ===== ===== ===== === Test Resul t Flag Units Ref Range Creat inine 189 mg/dL >=20 ===== ===== ===== ===== ===== ===== ===== ===== ===== ===== ===== ===== ===== === Decla red Medic ation s: Medic ation list was not provi ded. ===== ===== ===== ===== ===== ===== ===== ===== ===== ===== ===== ===== ===== === For clini magdalena consu ltati on, pleas e call [phone]. ===== ===== ===== ===== ===== ===== ===== ===== ===== ===== ===== ===== ===== === Not Available [facility] [address] [facility], [place], [address], 03/22/2017 20:08:58 03/16/20 17 03/22/2017 toxas sure selec t 13 (mw) pdf . Not Available [facility] [address] [facility], [place], [address], 03/22/2017 20:08:58 03/16/20 17 03/17/2017 CBC w/ auto diff WBC 14.6 x10e3 /uL 3.4-10 .8 above high normal Not Available [facility] ([facility]) [address] [place], [address], 03/22/2017 20:08:59 03/16/20 17 03/17/2017 CBC w/ auto diff RBC 4.28 x10e6 /uL 3.77-5 .28 Not Available [facility] ([facility]) [address] [place], [address], 03/22/2017 20:08:59 03/16/20 17 03/17/2017 CBC w/ auto diff hemoglobin 13.3 g/dL 11.1-1 5.9 Not Available [facility] ([facility]) [address] [place], [address], 03/22/2017 20:08:59 03/16/20 17 03/17/2017 CBC w/ auto diff hematocrit 41.1 % 34.0-4 6.6 Not Available [facility] ([facility]) [address] [facility] [place], [address], 03/22/2017 20:08:59 03/16/20 17 03/17/2017 CBC w/ auto diff MCV 96 fL 79-97 Not Available [facility] ([facility]) [address] [facility], [place], [address], 03/22/2017 20:08:59 03/16/20 17 03/17/2017 CBC w/ auto diff MCH 31.1 pg 26.6-3 3.0 Not Available [facility] ([facility]) [address] [facility], [place], [address], 03/22/2017 20:08:59 03/16/20 17 03/17/2017 CBC w/ auto diff MCHC 32.4 g/dL 31.5-3 5.7 Not Available [facility] ([facility]) [address] [facility], [place], [address], 03/22/2017 20:08:59 03/16/20 17 03/17/2017 CBC w/ auto diff RDW 12.8 % 12.3-1 5.4 Not Available [facility] ([facility]) [address] [facility], [place], [address], 03/22/2017 20:08:59 03/16/20 17 03/17/2017 CBC w/ auto diff platelets 360 x10e3 /uL 150-37 9 Not Available [facility] ([facility]) [address] [place], [address], 03/22/2017 20:08:59 03/16/20 17 03/17/2017 CBC w/ auto diff neutrophils 75 % not estab. Not Available [facility] ([facility]) [address] [facility], [place], [address], 03/22/2017 20:08:59 03/16/20 17 03/17/2017 CBC w/ auto diff lymphs 17 % not estab. Not Available [facility] ([facility]) [address] [place], [address], 03/22/2017 20:08:59 03/16/20 17 03/17/2017 CBC w/ auto diff monocytes 7 % not estab. Not Available [facility] ([facility]) [address] [place], [address], 03/22/2017 20:08:59 03/16/20 17 03/17/2017 CBC w/ auto diff eos 1 % not estab. Not Available [facility] ([facility]) [address] [place], [address], 03/22/2017 20:08:59 03/16/20 17 03/17/2017 CBC w/ auto diff basos 0 % not estab. Not Available [facility] ([facility]) [address] [facility], [place], [address], 03/22/2017 20:08:59 03/16/20 17 03/17/2017 CBC w/ auto diff immature cells STATION SUPERINTENDENT Not Available [facility] ([facility]) [address] [place], [address], 03/22/2017 20:08:59 03/16/20 17 03/17/2017 CBC w/ auto diff neutrophils (absolute) 10.9 x10e3 /uL 1.4-7. 0 above high normal Not Available [facility] ([facility]) [address] [place], [address], 03/22/2017 20:08:59 03/16/20 17 03/17/2017 CBC w/ auto diff lymphs (absolute) 2.5 x10e3 /uL 0.7-3. 1 Not Available [facility] ([facility]) [address] [place], [address], 03/22/2017 20:08:59 03/16/20 17 03/17/2017 CBC w/ auto diff monocytes(ab solute) 1.0 x10e3 /uL 0.1-0. 9 above high normal Not Available [facility] ([facility]) [address] [place], [address], 03/22/2017 20:08:59 03/16/20 17 03/17/2017 CBC w/ auto diff eos (absolute) 0.2 x10e3 /uL 0.0-0. 4 Not Available [facility] ([facility]) [address] [place], [address], 03/22/2017 20:08:59 03/16/20 17 03/17/2017 CBC w/ auto diff baso (absolute) 0.0 x10e3 /uL 0.0-0. 2 Not Available [facility] ([facility]) [address] [place], [address], 03/22/2017 20:08:59 03/16/20 17 03/17/2017 CBC w/ auto diff immature granulocytes 0 % not estab. Not Available [facility] ([facility]) [address] [place], [address], 03/22/2017 20:08:59 03/16/20 17 03/17/2017 CBC w/ auto diff immature grans (abs) 0.0 x10e3 /uL 0.0-0. 1 Not Available [facility] ([facility]) [address] [place], [address], 03/22/2017 20:08:59 03/16/20 17 03/17/2017 CBC w/ auto diff NRBC STATION SUPERINTENDENT Not Available [facility] ([facility]) [address] [place], [address], 03/22/2017 20:08:59 03/16/20 17 03/17/2017 CBC w/ auto diff hematology comments: STATION SUPERINTENDENT Not Available [facility] ([facility]) [address] [place], [address], 03/22/2017 20:08:59 03/16/20 17 03/17/2017 type + scree n, serum ABO grouping O Not Available [facility] ([facility]) [address] [place] [address], [address], 03/22/2017 20:08:59 03/16/20 17 03/17/2017 type + scree n, serum Rh factor Positi ve Pleas e note: Prior recor ds for this patie nt's ABO / Rh type are not avail able for addit ional verif icati on. Not Available [facility] ([facility]) [address] [place], [address], 03/22/2017 20:08:59 03/16/20 17 03/17/2017 type + scree n, serum antibody screen Negati ve negati ve Not Available [facility] ([facility]) [address] [place] [address], [place], [address], 03/22/2017 20:08:59 03/16/20 17 03/17/2017 TSH, ultra -sens itive , serum TSH 0.722 uIU/m L 0.450- 4.500 Not Available [facility] ([facility]) [address] [place] [address], [address], 03/22/2017 20:09:00 03/16/20 17 03/17/2017 HCG, intac t + beta subun it, quant , serum or plasm a HCG,beta subunit,qnt, serum 96783 mIU/m L Femal e (Non- pregn ant) 0 - 5 (Post menop ausal ) 0 - 8 Femal e (Preg nant) Weeks of Gesta tion 3 6 - 71 4 10 - 750 5 254 - 0850 6 375 - 47686 7 7388 -2953 63 8 57455 -6594 71 9 13357 -0752 10 10 90649 -5301 77 12 47614 -2324 12 14 85205 - 24015 15 21926 - 91090 16 2208 - 36337 17 2580 - 05310 18 7226 - 63972 Magali ECLIA metho dolog y Not Available [facility] ([facility]) [address] [place], [address], 03/22/2017 20:09:00 03/16/20 17 03/17/2017 hemog lobin S (hbs) , prese nce, blood hemoglobin (HGB) solubility Negati ve negati ve Not Available [facility] ([facility]) [address] [facility], [place], [address], 03/22/2017 20:09:01 03/16/20 17 03/17/2017 rubel la IgG Ab, quant immun oassa y, serum or plasm a rubella antibodies, IgG 0.99 index immune >0.99 below low normal A secon d sampl e shoul d be colle cted and teste d no less than 2-4 weeks . Non-i mmune <0.90 Equiv ocal 0.90 - 0.99 Immun e >0.99 Not Available [facility] ([facility]) [address] [facility], [place], [address], 03/22/2017 20:09:01 03/16/20 17 03/17/2017 RPR (rapi d plasm a reagi n), serum RPR Non Reacti ve non reacti ve Not Available [facility] ([facility]) [address] [place], [address], 03/22/2017 20:09:01 03/16/20 17 03/17/2017 HIV 1+2 AB + HIV 1 p24 Ag, quali tativ e immun oassa y, serum HIV screen 4TH generation wrfx Non Reacti ve non reacti ve Not Available [facility] ([facility]) [address] [place], [address], 03/22/2017 20:09:02 03/16/20 17 03/17/2017 varic laura zoste r virus IgG Ab, QN, IA, serum varicella zoster IgG 375 index immune >165 Negat lisa <135 Equiv ocal 135 - 165 Posit lisa >165 A posit lisa resul t gener ally indic ates expos ure to the patho gen or admin istra tion of speci fic immun oglob ulins , but it is not indic ation of activ e infec tion or stage of disea se. Not Available [facility] ([facility]) [address] [facility], [place], [address], 03/22/2017 20:09:02 03/16/20 17 03/17/2017 hsv-2 (herp es simpl ex virus type 2) igg Ab, serum hsv 2 IgG, type spec <0.91 index 0.00-0 .90 Negat lisa <0.91 Equiv ocal 0.91 - 1.09 Posit lisa >1.09 Note: Negat lisa indic ates no antib odies detec gibran to HSV-2 . Equiv ocal may sugge st early infec tion. If clini darshan appro priat e, retes t at later date. Posit lisa indic ates antib odies detec gibran to HSV-2 . Not Available [facility] ([facility]) [address] [facility], [place], [address], 03/22/2017 20:09:03 03/16/20 17 03/17/2017 proge stero ne, serum progesterone 22.9 NG/mL Folli cular phase 0.1 - 0.9 Lutea l phase 1.8 - 23.9 Ovula tion phase 0.1 - 12.0 Pregn ant First trime ster 11.0 - 44.3 Secon d trime ster 25.4 - 83.3 Third trime ster 58.7 - 214.0 Postm enopa usal 0.0 - 0.1 Not Available [facility] ([facility]) [address] [facility], [place], [address], 03/22/2017 20:09:03 03/16/20 17 03/17/2017 HBsAg (hepa titis B surfa ce Ag), EIA, serum HBsAg screen Negati ve negati ve Not Available [facility] ([facility]) [address] [facility], [place], [address], 03/22/2017 20:09:04 03/16/20 17 03/18/2017 cultu re, urine urine culture, routine Final report Not Available [facility] ([facility]) [address] [facility], [place], [address], 03/22/2017 20:09:04 03/16/20 17 03/18/2017 cultu re, urine result 1 Commen t Mixed uroge nital priscilla 10,00 0-25, 000 colon y formi ng units per mL Not Available [facility] ([facility]) [address] [facility], [place], [address], 03/22/2017 20:09:04 03/23/20 17 03/23/2017 US, obste tric, 1st trime ster No observ ation record ed. [facility] (Imaging) [address] [place], [address], 03/23/2017 16:13:41 Result Notes None recorded. Problems Name Problem SNOMED Code Status Onset Date Resolution Date Notes Provider Name and Address Organization Details Recorded Time test positive 978154070 Active 2016 Niesha Souza PA-C Attn: Accounting ,[address] [place], [address] , [facility] - [facility] 7 12:00:55 63906238 Completed 201601/02/2018 Erica peguero, [place] - [facility] 8 12:04:13 Anemia 865506721 Active Niesha Souza PA-C Attn: Accounting ,[address] [place], [address] , [facility] - [facility] 5 12:02:41 Tobacco dependence syndrome 82529489 Active Niesha Souza PA-C Attn: Accounting ,[address] [place], [address] , [facility] - [facility] 5 12:21:27 Knee pain Active 2016 Niesha Souza PA-C Attn: Accounting ,[address], [place], [address] , [place] 7 12:13:27 Problem Notes None recorded. Procedures Surgical History Date Name Laterality Status Provider Name and Address Organization Details Recorded Time 12/01/2016 Date of Last Pap Smear completed Edith Beckham [place] - [place] 03/16/2017 14:52:16 Imaging Results Imaging Date Name Status LastModified by Organiz ation Details LastModified Time 03/23/2017 US, obstetric, 1st trimester completed [facility] ([facility]) [address] [place], [address], 03/23/2017 16:13:41 Procedure Notes None recorded. Medical Equipment None Reported. Allergies Allergen ID Allergen Name Allergen Category Reaction Reaction Severity Criticality Documentation Date Start Date Code Code System Note Provider Name and Address Organization Details Recorded Time 07986 latex environme nt,medica tion hives mild Not available 01/25/2015 36217 91 RxNorm Not Available Not Available Not Available Medications Name Sig Start Date Stop Date Status Note LastModified by Organization Details LastModified Time amoxicillin 500 mg capsule 03/16 completed Not Available Not Available Not Available cetirizine 10 mg tablet Take 1 tablet every day by oral route. 02/21 completed Not Available Not Available Not Available ibuprofen 800 mg tablet 03/16 completed Not Available Not Available Not Available Lidocaine Viscous 2 % mucosal solution 03/16 completed Not Available Not Available Not Available metronidazo le 500 mg tablet Take 1 tablet twice a day by oral route for 7 days. active Not Available Not Available No t Available tramadol 50 mg tablet 03/16 completed Not Available Not Available Not Available Vitamin tablet Take 1 tablet every day by oral route as directed for 90 days. 2016 active Not Available Not Available Not Avai lable naproxen 500 mg tablet 03/16 completed Not Available Not Available Not Available nitrofurant oin monohydrate /macrocryst als 100 mg capsule Take 1 capsule every 12 hours by oral route for 7 days. active Not Available Not Available No t Available 1 PO QD 02/21 completed OTC Not Available Not Available Not Available Calcium with Vitamin D3 600 mg (carbonate) -10 mcg (400 unit) capsule Take 1 capsule twice a day by oral route. 2016 active Not Available Not Available Not Avai lable 28 mg iron-800 mcg tablet active Not Available Not Available N ot Available Vitals Date Recorded Body height Body mass index (BMI) Systolic blood pressure Diastolic blood pressure Provider Name and Address Organization Details Last Updated DateTime 03/16/2017 169.55 cm 22.4 kg/m2 118 mm[Hg] 74 mm[Hg] Edith Beckham [facility] 03/16/2017 15:06:56 Date Recorded Body weight Provider Name an d Address Organization Details Last Updated DateTime 03/16/2017 84322.28504 g Jazmyne fitch MD Attn: Accounting,[address] [place], [address], [facility] 03/16/2017 15:34:59 Date Recorded Respiratory rate Body weight Oxygen saturation Oxygen saturation in Arterial blood by Pulse oximetry Body height Body mass index (BMI) Body temperature Heart rate Systolic blood pressure Diastolic blood pressure Provider Name and Address Organization Details Last Updated DateTime 5 20 /min 52625.4 81401 g 99 % 99 % 169.545 cm 19 kg/m2 98.3 [degF] 76 /min 124 mm[Hg] 72 mm[Hg] [facility] 5 11:45:37 Date Recorded Respiratory rate Body weight Oxygen saturation Oxygen saturation in Arterial blood by Pulse oximetry Body height Body mass index (BMI) Body temperature Heart rate Systolic blood pressure Diastolic blood pressure Provider Name and Address Organization Details Last Updated DateTime 5 20 /min 64675.4 51443 g 98 % 98 % 169.545 cm 19.2 kg/m2 98.6 [degF] 82 /min 120 mm[Hg] 78 mm[Hg] Cuong [facility] 5 15:19:13 Date Recorded Body weight Oxygen saturation Oxygen saturation in Arterial blood by Pulse oximetry Heart rate Respiratory rate Body temperature Systolic blood pressure Diastolic blood pressure Provider Name and Address Organization Details Last Updated DateTime 7 45600.7 1 g 95 % 95 % 94 /min 12 /min 98 [degF] 120 mm[Hg] 74 mm[Hg] Km Patiño [facility] 7 11:44:08 Date Recorded Body height Body mass index (BMI) Provider Name and Address Organization Details Last Updated DateTime 12/07/2016 169.55 cm 22.4 kg/m2 Niesha Souza PA-C Attn: [facility],[address] [place], [address], [place] - [facility] 12/07/2016 12:16:12 Date Recorded Body height Body mass index (BMI) Body weight Heart rate Respiratory rate Body temperature Systolic blood pressure Diastolic blood pressure Provider Name and Address Organization Details Last Updated DateTime 7 169.55 cm 22.6 kg/m2 50968.5 1 g 100 /min 20 /min 98 [degF] 130 mm[Hg] 72 mm[Hg] Km Patiño [facility] 7 11:40:27 Social History Question Answer Notes LastModified by Organizat ion Details LastModified Time Tobacco Smoking Status Current Every Day Smoker Cuong Guardado MA [facility], [place] - [facility] 01/25/2015 11:45:37 Do You Have An Advance Directive? No [email or web address] Information not available 01/25/2015 What Is Your Level Of Alcohol Consumption? Occasional [email or web address] Information not available 01/25/2015 If You Are , What Was Your Level Of Alcohol Consumption Prior To ? Occasional Information not available 03/16/2017 How Many Years Have You Consumed Alcohol? 2 Information not available 03/16/2017 Is Anesthesia Consult Planned? No Information not available 03/16/2017 Plan No Information no t available 03/16/2017 Is Blood Transfusion Acceptable In An Emergency? Yes Information not available 03/16/2017 What Is Your Level Of Caffeine Consumption? Occasional Information not available 01/25/2015 Live With Cats/exposure To Cat Litter No Information not available 03/16/2017 How Much Tobacco Do You Chew? None [email or web address] Information not available 01/25/2015 Are You Currently Employed? No Information not available 03/16/2017 What Type Of Diet Are You Following? REGULAR [email or web address] Information not available 01/25/2015 Which Illicit Or Recreational Drugs Have You Used? 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 No Information no t available 03/16/2017 Frequent Air Travel No Information not available 03/16/2017 Are There Any Guns Present In Your Home? Yes [email or web address] Information not available 01/25/2015 Hard Of Hearing Or Deaf In One Or Both Ears? No [email or web address] Information not available 01/25/2015 Illicit Drugs Pre- None Information not available 03/16/2017 Legally Blind In One Or Both Eyes? No [email or web address] Information no t available 01/25/2015 Live Alone Or With Others? With Others [email or web address] Information not available 01/25/2015 Marital Status Informatio n not available 03/16/2017 What Was The Date Of Your Most Recent Tobacco Screening? 03/16/2017 Information not available 10/24/2018 How Many Children Do You Have? 1 [email or web address] Information not available 01/25/2015 Do You Use Protection During Sex? Always [email or web address] Information not available 01/25/2015 Seat Belts Used Routinely Yes Information not available 01/25/2015 Are You Sexually Active? Yes [email or web address] Information not available 01/25/2015 Smoke Alarm In Home Yes [email or web address] Information not available 01/25/2015 Do You Have Smoke And Carbon Monoxide Detectors In Your Home? Yes Information not available 03/16/2017 At What Age Did You Start Smoking Tobacco? 20 [email or web address] Information not available 01/25/2015 Are You Passively Exposed To Smoke? No [email or web address] Information no t available 01/25/2015 How Much Tobacco Do You Smoke? 0.5 PPD [email or web address] Information not available 01/25/2015 Smoking Pre- Yes Information not available 03/16/2017 General Stress Level Low Information not available 01/25/2015 Do You Use Sunscreen Routinely? Yes Information not available 03/16/2017 Supplements Prenartal Vitamin Information not available 03/16/2017 How Many Years Have You Smoked Tobacco? 14 [email or web address] Information not available 01/25/2015 Sex: Unknown Functional Status Question Answer Note LastModified by Organization D etails LastModified Time Are you able to care for yourself? Yes Information n ot available 01/25/2015 What is your exercise level? None [email or web address] Information not available 01/25/2015 Mental Status None recorded. Family History Relationship Description Onset Age of this Age Resolved Age Notes LastModified by Organization Details LastModified Time Mother Asthma [email or web address] Not available 1 15:19:13 Mother Malignant tumor of ovary Cancer sprede d throug h out brain, bones, blood & throug h out body Not available 03/16/2017 14:55:40 Brother Asthma [email or web address] Not available 01/27/2015 15:19:13 Son Asthma Not available 1 15:19:13 Medical History Condition Response Other N High Blood Pressure N Breast Cancer N Thyroid Problems N Kidney or Bladder Problems N GI Problems N Depression N Blood Clots N Lung Disease N Acne N Breast Problem N Eating Disorder N Anemia N Anesthesia Complications N Headaches/Migraines N Anxiety Disorder N Diabetes N Ovarian Cancer N Muscle, Joint, or Bone Problems N Blood Transfusions N Seizures/Epilepsy N Polyps N Infertility N Acid Reflux (GERD) N Cancer N Abuse/Domestic Violence N Asthma N Endometriosis N High Cholesterol N Hepatitis N Liver Disease N Heart Disease N Pre-Eclampsia N Osteoporosis N Gynecological History Statement/Question Response Abnormal Pap N Flow Heavy Date of LMP 01/08/2017 On BCP's at Conception? N STIs/STDs N HPV Vaccine N Duration of Flow (days) 7 Age at Menarche 11 Current Control Method None Age at First Child 22 Sexually Active? Y Menses Monthly Y Date of Last Pap Smear 12/01/2016 Sexual Problems? N LMP Approximate Desired Control Method Unknown Obstetrics History GPAL:G 2 P 1 0 1 1 Type Value Full Term 1 Induced 1 Living 1 Total 2 Immunizations Vaccine Type Date Status Note Provider Nam e and Address Organization Details Recorded Time Influenza, split virus, quadrivalent, preservative 5 completed Not Available [facility] 04/19/2019 02:32:10 Past Encounters Encounter ID Performer Location Encounter Start Date Encounter Closed Date Diagnosis/Indication Diagnosis SNOMED-CT Code Diagnosis ICD10 Code Diagnosis Note [id number] JOSE ANTONIO Chance (Adult Med) [address] [place] [phone] 01/25/2015 11:23:59 01/25/2015 12:21:57 Adult health examination 874921358 Z00.00 Active or passive immunization 362977323 Z23 Tobacco de pendence syndrome 92157994 F17.290 Currently cutting down - she and her are actively trying to conceive so she knows that she needs to quit smoking - her does not smoke so she feels that once she gets she will be able to not smoke following [id number] JOSE ANTONIO Chance (Adult Med) [address] [place] [address] [phone] 0 01/27/2015 15:07:58 01/27/2015 18:01:16 Gynecologic examination 04256426 Z01.419 Patient advised that if they unable to conceive over the next 6 months to RTC [id number] JOSE ANTONIO Chance (Adult Med) [address] [place] [phone] 12/07/2016 11:22:53 12/11/2016 11:22:01 Tobacco dependence syndrome 31677721 F17.290 Advised to quit - she has no interest in quitting smoking Allergic rhinitis 641589 04 J30.9 Knee pain 33851705 M25.5 62 left knee - at this time advised patient that I cannot release her back to work until I see her ER note and see that her xray results were WNL - will contact patient when I have note Will refer to PT at this time 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 Adult heal th examination 521010404 Z00.01 will check basic labs [id number] JOSE ANTONIO Chance (Adult Med) [address] [place] [phone] 02/21/2017 11:32:05 02/21/2017 13:42:46 Missed period 95383576 N92.5 test positive 614201257 Z32.01 LMP: 01/08/17EOC : 10/14/16 Advised to make an appointmen t with OBGYN since they will be following her for her NO alcohol, tobacco, ibuprofen [id number] MD Ricardo Pinto (SYSTEMS COORDINATOR) [address] [place] [address] 03/16/2017 14:12:48 03/16/2017 16:17:32 Routine care 620192189 Z34.80 Urinary tr act infectious disease 22547984 N39.0 Counseled about it. Health Concerns Section Related Observation LastModified by Organization Detai ls LastModified Time None Recorded Concern Status LastModified by Organization Details LastModified Time None Recorded Advance Directives Directive N: Payers Encounter Date Sequence Insurance Name Policy Number Policy Ibrahim Covered Member ID Ibrahim Member ID Guarantor Name 01/25/2015 1 [facility] PRIOR TO 09/30/2020 (MEDICAID REPLACEMENT - HMO) Kellie Springer [id number] Kellie Gramajo 01/27/2015 1 [facility] PRIOR TO 09/30/2020 (MEDICAID REPLACEMENT - HMO) Kellie Cookgan [id number] Kellie Gramajo 12/07/2016 1 [facility] PRIOR TO 09/30/2020 (MEDICAID REPLACEMENT - HMO) Kellie Racheal [id number] Kellie Gramajo 02/21/2017 1 [facility] PRIOR TO 09/30/2020 (MEDICAID REPLACEMENT - HMO) Kellie Racheal [id number] Kellie Gramajo 03/16/2017 1 [facility] PRIOR TO 09/30/2020 (MEDICAID REPLACEMENT - HMO) Kellie Springer [id number] Kellie Gramajo Notes Date Note Type Note Provider Name and Address Organization Details Recorded Time 01/25/2015 text/html Here to ana paula collins and is requesting flu vaccine Niesha Souza PA-C Attn: Accounting,[address] [place], [address], [facility] 01/25/2015 12:21:47 12/07/2016 text/html KneeReported bypatient.Location:l eft Quality:aching Severity:moderate Duration:2 weeks Timing:acute (ran into her and fell onto her left knee) Context:fall Alleviating Factors:rest; NSAIDs Aggravating Factors:standing; walking Associated Symptoms:no weakness; no numbness; no tingling; no swelling; no redness; no warmth; no ecchymosis; no catching/locking; no popping/clicking; no buckling; no grinding; no instability; no radiation down leg; no drainage; no fever; no chills; no weight loss; no change in bowel/bladder habits Previous Surgery:none Prior Imaging:x ray Previous Injections:none Work Related:no 35YO female here for ER follow up and cold symptoms. Has not been seen in almost 2 years. ER visit 1 month ago at [facility] was for fall and left leg pain. Xray was negative, sent with tramadol and naproxen. Still complains of intermittent 8/10 pain at its worst at anterior and posterior knee with radiation to left hip. Naproxen and ibuprofen taken intermittently which helps. Cols symptoms started 2 days ago. Associated with fever, congestion with clear sputum, and sore throat with nonproductive cough. Tylenol taken for fever (99.8), which helped bring temp down, otherwise no medication taken. Nothing else has made symptoms better or worse. Niesha Souza PA-C Attn: Accounting,[address] [place], [address], [facility] 12/07/2016 13:37:57 02/21/2017 text/html States that she took 9 tests at home that were all positive. LMP 01/08/17.States she has not smoked in 4 days and plans to stay smoke free Niesha Souza PA-C Attn: Accounting,[address] [place], [address], [facility] - [facility] 02/21/2017 12:01:36 03/16/2017 text/html OB ProblemReport ed bypatient.Associated Symptoms:no abdominal pain; no cramping; no contractions; no bleeding; no ROM; no vaginal discharge; no vaginal/vulvar itching or irritation; no dysuria; no frequency; no urgency; no hematuria; no fever; no nausea; no emesis; no constipation; no diarrhea/loose stool; no edema; no visual changes; no headache; no dizziness Jazmyne Machuca MD Attn: Accounting,[address] , [place], [address], [place] [facility] 03/16/2017 15:53:09 OBGyn Episode Ob Episode Information Episode Created Date Number of Fetuses Patient Bloodtype Patient rh Status Prepregnancy Weight lbs Domestic Partner Domestic Partner Phone Father Name Formal Service Waiter Status 03/16/20 17 1 CLOSED Fetus Data First Name Last Name Admitted to NICU Weight (g) Sex Living Outcome Pediatric Complications Fetus ID Race Codes Race Delivery Type 3288.54 2 M Full Term [id number] Vaginal [place] Calculation Initial [place] Date Initial Exam Date Initial Exam Provider Initial Ultrasound Date Last Menstrual Period Date Ultra Sound Weeks Gestation 0 Eighteen To Twenty Week [place] Update Ultra Sound Date Fundal Height At Umbil Quickening Date Ultra Sound Latest Weeks Gestation Final [place] Confirmed By Final [place] Confirmed Date Final [place] Date Ultra Sound Latest Days Gestation 0 0 Menstrual History Last Menstrual Date Menses Monthly On Bcp Conception Prior Menses Frequency Hcg Plus Date Menarche Onset Age Delivery Information Delivery Date Delivery Type Labor Anesthesia Weeks Gestation Incision Type Labor Labor Length Hrs Delivered By Post Complications Tubal Sterilization Discharge Date Comments 3 None 40 false Discharge Information Feeding Method Contraceptive Method Maternal HG B and HCT Levels Ob Episode Information Episode Created Date Number of Fetuses Patient Bloodtype Patient rh Status Prepregnancy Weight lbs Domestic Partner Domestic Partner Phone Father Name Formal Service Waiter Status 03/16/20 17 1 O Positive 142 CLOSED Fetus Data First Name Last Name Admitted to NICU Weight (g) Sex Living Outcome Pediatric Complications Fetus ID Race Codes Race Delivery Type [id number] Booker Calculation Initial Booker Date Initial Exam Date Initial Exam Provider Initial Ultrasound Date Last Menstrual Period Date Ultra Sound Weeks Gestation 10/18/2017 03/16/2017 [email or web address] 03/23/2017 01/08/2017 10 Eighteen To Twenty Week Booker Update Ultra Sound Date Fundal Height At Umbil Quickening Date Ultra Sound Latest Weeks Gestation Final Booker Confirmed By Final Booker Confirmed Date Final Booker Date Ultra Sound Latest Days Gestation 0 uyraul03/23/2017 10/19/19 18 0 Pre- Flowsheet Flowsheet Date 03/16/2017 Manrique Score Blood Edema Fundus Height Fundus Units Glucose Ketones Leukocytes Nitrite Labor Signs Protein Cervic Dilation Cervic Effacement Cervic Station neg none 9 cm none negative none neg 0cm 0% - 4 Type Weight in lbs Pre/Post Dialysis Refused [id number] BP Diastolic BP Location Tested BP Systolic BP Type 74 118 sitting Fetus Heart Rate Present Fetus Movement A No Comments Menstrual History Last Menstrual Date Menses Monthly On Bcp Conception Prior Menses Frequency Hcg Plus Date Menarche Onset Age 1001/08/2017 true 9 Genetic Screening And Infection History Question Response Note Patient's Age Will Be 35 Years Or Older At Estim ated Date of Delivery false Thalassemia (Moldovan, Czech, Mediterranean, Or Background): MCV < 80 false Neural Tube Defect (Meningomyelocele, Spina Bifi da, Or Anencephaly) false Congenital Heart Defect false Down Syndrome false Martín-Sachs (eg, Bahai, Cajun, Latvian-Brazilian) f alse Nella Disease false Sickle Cell Disease Or Trait () false Hemophilia Or Other Blood Disorders false Muscular Dystrophy false Cystic Fibrosis false [place]'s Chorea false Mental Retardation/Autism false If Yes, Was Person Tested For Fragile X? false Other Inherited Genetic Or Chromosomal Disorder false Maternal Metabolic Disorder (eg, Type 1 Diabetes , PKU) false Patient Or Baby's Father Had A Child With Defects Not Listed Above false Recurrent Loss, Or A Stillbirth false Medications (including Suppl ements, Vitamins, Herbs, OTC Drugs), Illicit/Recreational Drugs, Alcohol false If Yes, Agent(s) And Strength/Dosage false Any Other Genetic History false Live With Someone With TB Or Exposed To TB false Patient Or Partner Has History Of Genital Herpes false Rash Or Viral Illness Since Last Menstrual Perio d false History Of STD, Gonorrhea, Chlamydia, HPV, Syphi lis false Other Infection History false Plans and Education First Trimester Discussed Date Discussion Item Discussion Note Discuss ed By 03/16/2017 Anticipated course of care uyraul 03/16/2017 Alcohol uyraul 03/16/2017 Intimate partner violence uraulu 03/16/2017 Environmental/work hazards s 03/16/2017 Screening for aneuploidy 03/16/2017 Nutrition counseling ; special diet; dietary precautions (mercury, listeriosis) raul 03/16/2017 Childbirth classes/hospital facilities uyraul 03/16/2017 HIV and other routine tests raul 03/16/2017 Risk factors identif ied by history [facility] 03/16/2017 Weight gain counseling [facility] 03/16/2017 Exercise [facility] 03/16/2017 Teratogens [facility] 03/16/2017 Use of any medicatio ns (including supplements, vitamins, herbs, or OTC drugs) [facility] 03/16/2017 [facility] 03/16/2017 Sexual activity [facility] 03/16/2017 Tobacco/smoking cess ation counseling (ask, advise, assess, assist, and arrange) [facility] 03/16/2017 Illicit/recreational drugs [facility] 03/16/2017 Dental care [facility] 03/16/2017 Travel [facility] 03/16/2017 Seat belt use [facility] 03/16/2017 Indications for ultrasonography [facility] 03/16/2017 Avoidance of saunas or hot tubs [facility] 03/16/2017 Toxoplasmosis precautions (cats/raw meat) [facility] Second Trimester Discussed Date Discussion Item Discussion Note Discuss ed By Third Trimester Discussed Date Discussion Item Discussion Note Discuss ed By Delivery Information Delivery Date Delivery Type Labor Anesthesia Weeks Gestation Incision Type Labor Labor Length Hrs Delivered By Post Complications Tubal Sterilization Discharge Date Comments 8 50.6 Transfer Discharge Information Feeding Method Contraceptive Method Maternal HG B and HCT Levels
--- OUTSIDE RECORDS SUMMARY | 2024-05-27 11:34 | XMS_ITS | Referral Summary ---
Author Organization [facility] [employer] Address [address] [place] [address] Care Team Providers Care Litigation Partner Name Role Phone Unavailable Primary Care Provider Unavailabl e Source Comments [facility] [employer],non-owned Affiliates and Associated Physician Practices is amultiple site organization consisting of ambulatory clinics and hospital sitesin [place], [place], [place] and [place]. This disclosure is being madepursuant to the Care Everywhere program and may not contain all information available regarding this patient. Last updated 17.[facility] [employer] Allergies Active Allergy Reactions Criticality Noted Date [...] Mass Index - - Plan of Treatment Not on file Kellie Gramajo Personal/Family Self 1980 [address] [address]
--- NOTE | 2024-05-27 13:00 | PC.NURSE ---
Called for VS, no response.
--- NOTE | 2024-05-27 13:54 | PC.NURSE ---
Pt called for second time, no answer.
--- OUTSIDE RECORDS SUMMARY | 2024-05-27 17:57 | XMS_ITS | Referral Summary ---
Author Organization [facility] [employer] Address [address] [place] [address] Care Team Providers Care Forensics Team Director Name Role Phone Unavailable Primary Care Provider Unavailabl e Source Comments [facility] [employer],non-owned Affiliates and Associated Physician Practices is amultiple site organization consisting of ambulatory clinics and hospital sitesin [place], [place], [place] and [place]. This disclosure is being madepursuant to the Care Everywhere program and may not contain all information available regarding this patient. Last updated 17.[facility] [employer] Allergies Active Allergy Reactions Criticality Noted Date [...] file Kellie Gramajo Personal/Family Self 1980 [address] [address]
--- OUTSIDE RECORDS SUMMARY | 2024-05-27 17:57 | XMS_ITS | Clinical Summary ---
Author Organization [facility] [employer] Address [address] [place] [address] Care Team Providers Care Material Coordinator Name Role Phone Unavailable Primary Care Provider Unavailabl e Source Comments [facility] [employer],non-owned Affiliates and Associated Physician Practices is amultiple site organization consisting of ambulatory clinics and hospital sitesin [place], [place], [place] and [place]. This disclosure is being madepursuant to the Care Everywhere program and may not contain all information available regarding this patient. Last updated 17.[facility] [employer] Allergies Active Allergy Reactions Criticality Noted Date [...]
--- OUTSIDE RECORDS SUMMARY | 2024-05-27 17:57 | XMS_ITS | Patient Health Summary ---
Author Organization [facility] [employer] Address [address] [place] [address] Care Team Providers Care Mat Cleaning Machine Operator Name Role Phone Unavailable Primary Care Provider Unavailabl e Note from [facility],non-owned Affiliates and Associated Physician Practices is amultiple site organization consisting of ambulatory clinics and hospital sitesin [place], [place], [place] and [place]. This disclosure is being madepursuant to the Care Everywhere program and may not contain all information available regarding this patient. Last updated 17.[facility] [employer] Allergies * Latex(Rash) -Medium Criticality Medications * [...] Narrative 09/14/2017 5:[address] [facility] PHONE: FAX: Pat. Name: KELLIE GRAMAJO Pat. No: [id number] Study Date: 09/14/2017 11:27am , Age: 09 1980, 36 Pregnancies: 3, Para 1, Ab 1 Height: 66 in Weight: 121 lb LMP: Unknown GA by Base: 35w4d PATRIC: 10/15/2017 GA by US: 33w4d PATRIC: 10/29/2017 GA Selected: 35w4d (From Known E) PATRIC: 10/15/2017 Referring MD: Portillo Melchor MD [employer] Designer: Danna Fuentes RDMS CPT4: [id number] BMI: 19.53 Hist/Ind: Possible FGR (borderline SGA with elevated umbilical artery PI on 07/27) MEASUREMENTS & AGE GROWTH EVALUATION Measurement GA Range Srce %for GA Ratios ----- ---- ------- BPD 7.9 cm 31w6d (11v6u-24b5y) Hadl BPD <01 FL/BPD 0.83 (0.71 - 0.87) HC 30.6 cm 34w1d (87j2b-99q3k) Hadl HC 3% FL/AC 0.22 (0.20 - 0.24) AC 30.6 cm 34w4d (72s7u-32c5d) Hadl AC 30% HC/AC 1.00 (0.93 - 1.12) FL 6.6 cm 34w0d (20j4x-20g0u) Hadl FL 9% CI 0.71 (0.70 - 0.86) HL 5.8 cm 33w2d (44n5x-37c3r) Werner HL 13% GA for sonogram 33w4d (45e0f-93n9p) Weight Estimate: based on (HL,BPD,HC,AC,FL) Avg Weight: [...] x 15 accelerations, no decelerations; impression: Reactive. [place]: Irregular contractions. Doppler studies: The umbilical artery [...] <Electronic Signature> 09/14/2017 05:48pm Muriel Villagomez MD [facility] ORDERABLES * SONOGRAM - LIMITED (08/03/2017 10:44 AM CDT) Anatomical Region Laterality Modality Other 08/03/2017 10:4 4 AM CDT Narrative 08/03/2017 11:[address] [facility] PHONE: FAX: Pat. Name: KELLIE GRAMAJO Pat. No: [id number] Study Date: 08/03/2017 10:44am , Age: 09 1980, 36 Pregnancies: 3, Para 1, Ab 1 Height: 66 in Weight: 121 lb LMP: Unknown GA by Base: 29w4d PATRIC: 10/15/2017 GA Selected: 29w4d (From Known E) PATRIC: 10/15/2017 Referring MD: Portillo Melchor MD [employer] Metal[employer] Designer: Danna Fuentes RDMS CPT4: 83074,[id number] BMI: 19.53 Hist/Ind: Possible FGR (borderline SGA [...] <Electronic Signature> 08/03/2017 11:22am Muriel Villagomez MD [facility] ORDERABLES
== END 2024-05-27 16:41 | disposition left against medical advice (07) ==
DX: R51.9 Headache, unspecified (principal)
CPT/HCPCS: 99199

== ENCOUNTER 2024-07-27 16:31 | Observation (INO) | payer BC, SELFPAY ==
--- OUTSIDE RECORDS SUMMARY | 2024-07-27 16:37 | XMS_ITS | Data Portability ---
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 Plan of Treatment Reminders Order Date Submit Date Provider Last Modified By Organization Details Last Modified Time Details Appointments None recorded. Lab test, urine 2016 017 shira In-Office Order, Internal Use Only DO Not Attach Compendium DO Not Attach Compendium, Do Not Delete/merge, [id number] 7 16:26:13 urinalysis , dipstick 2016 017 shira In-Office Order, Internal Use Only DO Not Attach Compendium DO Not Attach Compendium, Do Not Delete/merge, [id number] 7 16:26:13 RPR (rapid plasma reagin), serum - Please fax results to [facility] 2016 017 ARM[facility], [address], [address], [place], [address], 7 20:09:02 culture, urine - Please fax results to [facility] 2016 017 [facility], [address], [address], [place], [address], 7 20:09:04 HCG, intact + beta subunit, quant, serum or plasma - Please fax results to [facility] 2016 017 [facility], [address] [address], [address], [place], [address], 7 20:09:00 HSV (1+2) DNA, qual, PCR, unspecifie d specimen - Please fax results to [facility] 2016 017 [facility], [address] [place] [address] [address], [address], [place], [address], 7 14:12:08 culture, vaginal/re ctal, streptococ cus group B - Please fax results to [facility] 2016 017 [facility], [address] [place] [address], [address], [place], [address], 7 14:12:13 varicella- zoster igg Ab screen, serum - Fax results to [facility] 2016 017 [facility], [address] [place] [address], [address], [place], [address], 7 13:14:48 CBC w/ auto diff - Please fax results to [facility] 2016 017 [facility], [address] [place] [address], [address], [place], [address], 7 20:08:59 progestero ne, serum - Please fax results to [facility] [address] [facility], [address] [place] [address], [address], [place], [address], 7 20:09:03 hsv-2 (herpes simplex virus type 2) igg Ab, serum - Please fax results to [facility] [address] [facility], [address] [place] [address], [address], [place], [address], 7 20:09:03 HBsAg (hepatitis B surface Ag), EIA, serum - Please fax results to [facility] [address] [facility], [address] [place] [address], [address], [place], [address], 7 20:09:04 rubella IgG Ab, quant immunoassa y, serum or plasma - Please fax results to [facility] [address] [facility], [address] [place] [address], [address], [place], [address], 7 20:09:01 type + screen, serum - Please fax results to [facility] [address] [facility], [address] [place] [address], [address], [place], [address], 7 20:08:59 HIV 1+2 AB + HIV 1 p24 Ag, qualitativ e immunoassa y, serum - please fax results to [facility] [phone] 2016 017 [facility], 2022 Emma Hayward, [address], [address], 7 20:09:02 unlisted lab - toxassure select 13 (mw) 2016 017 [facility], [address], [address], [place], [address], 7 20:08:58 bacterial vaginosis + vaginitis panel, vaginal - Please fax results to [facility] 2016 017 [facility], [address], [address], [place], [address], 7 14:12:05 hemoglobin S (hbs), presence, blood - Please fax results to [facility] 2016 017 [facility], [address] [place], [place] [address]ma[address], [address], [place], [address], 7 20:09:01 TSH, 2nd Generation , QN, serum or plasma - [id number] 2016 017 [facility], [address], [address], [place], [address], 7 13:14:48 test, urine 2016 017 mary kay In-Office Order, Internal Use Only DO Not Attach Compendium DO Not Attach Compendium, Do Not Delete/merge, [id number] 7 11:48:57 HCG, intact + beta subunit, quant, serum or plasma - Please fax results to [facility] 2016 017 [facility], [address], [address], [place], [address], 7 07:14:08 progestero ne, serum - Please fax results to [facility] 2016 017 ARM[facility]O [facility], [address], [address], [place], [address], 7 07:14:08 CMP, serum or plasma 2016 017 [facility]O [facility], [address], [address], [place], [address], 7 12:18:16 lipid panel, serum 2016 017 ARMANDO MACEDOLETITIA, [address], [address], [place], [address], 7 12:18:16 pap, IG + HPV, cervical 2014 015 ARMANDO MACEDOLETITIA, [address], [address], [place], [address], 5 17:17:16 CMP, serum or plasma 2014 015 nitinpierre MACEDOLETITIA, [address], [address], [place], [address], 5 15:15:03 urinalysis , complete 2014 015 nitinpierre BUTCH, [address], [address], [place], [address], 5 15:15:03 CBC 2014 015 nitinpierre BUTCH, [address], [address], [place], [address], 5 15:15:04 lipid panel, serum 2014 015 nitinpierre BUTCH, [address], [address], [place], [address], 5 15:15:04 Referral physical therapy knee referral - please call patient to schedule apptDany holley 2016 017 [email or web address] [facility], [address] [place], [address], 7 11:51:32 Procedures None recorded. Surgeries None recorded. Imaging US, obstetric, 1st trimester - Z34.9, Z36, Z34 2016 017 [facility] ([facility]), [address] [place], [address], 7 10:28:55 Medication Orders Macrobid 100 mg capsule 2016 017 [facility] #[id number], [address] [place], [place], [id number], 7 15:35:34 Vitamin tablet 2016 017 [facility] #[id number], [address] [place], [place], [id number], 7 16:26:13 Calcium with Vitamin D3 600 mg (carbonate )-10 mcg (400 unit) capsule 2016 017 [id number], [address] [place], [place], [id number], 7 16:26:13 Vitamin tablet 2016 017 [facility]97493, [address] [place], [place], [id number], 7 11:50:37 Calcium with Vitamin D3 600 mg (carbonate )-10 mcg (400 unit) capsule 2016 017 [facility] #87400, [address], [place], [place], [id number], 7 11:50:37 cetirizine 10 mg tablet 2016 017 mary kay [facility] #85973, [address], [place], [place], [id number], 7 12:01:16 Patient TargetsNo targets recorded. Patient Instructions Encounter Date Encounter Id Patient Instructions Last Modified By Organization Details Last Modified Time 01/25/2015 [id number] Nick schedule pap smear for next appointment Taking vitamin because she is actively trying to conceive eewig Not available 01/25/2015 12:21:28 12/07/2016 [id number] Will sign SAMI toi Sykes ER note eewig Not available 12/07/2016 12:14:46 03/16/2017 [id number] Urinary Tract Infection (UTI) in Women: Care [...] blood pressure Robitussin CF, DM Tavist D [place] Mist Nasal [place] Antihistamines: Claritin and Claritin D Benadryl Dimetapp [...] DO Not Attach Compendium, Do Not Delete/merge, [id number] 03/16/2017 14:41:31 03/16/20 17 03/16/2017 urina lysis , dipst ick Nitrite negati ve Not Available In-Office Order Internal Use Only DO Not Attach Compendium DO Not Attach Compendium, Do Not Delete/merge, [id number] 03/16/2017 14:41:31 03/16/20 17 03/16/2017 urina lysis , dipst ick Urobilinogen .2 Not Available In-Of fice Order Internal Use Only DO Not Attach Compendium DO Not Attach Compendium, Do Not Delete/merge, [id number] 03/16/2017 14:41:31 03/16/20 17 03/16/2017 urina lysis , dipst ick Protein Negati ve Not Available In-Office Order Internal Use Only DO Not Attach Compendium DO Not Attach Compendium, Do Not Delete/merge, [id number] 03/16/2017 14:41:31 03/16/20 17 03/16/2017 urina lysis , dipst ick pH 6.5 Not Available In-Office Order Internal Use Only DO Not Attach Compendium DO Not Attach Compendium, Do Not Delete/merge, [id number] 03/16/2017 14:41:31 03/16/20 17 03/16/2017 urina lysis , dipst ick Blood Negati ve Not Available In-Office Order Internal Use Only DO Not Attach Compendium DO Not Attach Compendium, Do Not Delete/merge, [id number] 03/16/2017 14:41:31 03/16/20 17 03/16/2017 urina lysis , dipst ick Specific [place] 1.020 Not Available In-Off ice Order Internal Use Only DO Not Attach Compendium DO Not Attach Compendium, Do Not Delete/merge, [id number] 03/16/2017 14:41:31 03/16/20 17 03/16/2017 urina lysis , dipst ick Ketone Negati ve Not Available In-Office Order Internal Use Only DO Not Attach Compendium DO Not Attach Compendium, Do Not Delete/merge, [id number] 03/16/2017 14:41:31 03/16/20 17 03/16/2017 urina lysis , dipst ick Bilirubin Negati ve Not Available In-Office Order Internal Use Only DO Not Attach Compendium DO Not Attach Compendium, Do Not Delete/merge, [id number] 03/16/2017 14:41:31 03/16/20 17 03/16/2017 urina lysis , dipst ick Glucose Negati ve Not Available In-Office Order Internal Use Only DO Not Attach Compendium DO Not Attach Compendium, Do Not Delete/merge, [id number] 03/16/2017 14:41:31 03/16/20 17 03/16/2017 pregn leon test, urine HCG positi ve Not Available In-Office Order Internal Use Only DO Not Attach Compendium DO Not Attach Compendium, Do Not Delete/merge, [id number] 03/16/2017 14:41:25 02/22/20 17 02/21/2017 pregn leon test, urine HCG positi ve Not Available In-Office Order Internal Use Only DO Not Attach Compendium DO Not Attach Compendium, Do Not Delete/merge, [id number] 02/21/2017 11:46:37 01/28/20 15 02/01/2015 pap, IG + HPV, cervi [place] diagnosis: COMMEN T NEGAT LISA FOR INTRA EPITH ELIAL LESIO N AND FATEMEH NAVAS . Not Available [facility] ([facility]) [address] [facility], [place], [address], 02/02/2015 17:17:15 01/28/20 15 02/01/2015 pap, IG + HPV, cervi [place] specimen adequacy: COMMEN T SATIS FACTO RY FOR EVALU ATION . ENDOC ERVIC AL AND/O R SQUAM OUS METAP LASTI C CELLS (ENDO CERVI [place] COMPO NENT) ARE PRESE NT. Not Available [facility] ([facility]) [address] [facility], [place], [address], 02/02/2015 17:17:15 01/28/20 15 02/01/2015 pap, IG + HPV, cervi [place] clinician provided ICD10: MATTHEW Pandya Z01.4 19 Not Available [facility] ([facility]) [address] [place], [address], 02/02/2015 17:17:15 01/28/20 15 02/01/2015 pap, IG + HPV, cervi [place] performed by: MATTHEW OLSEN , ARI Pandya (ASCP ) Not Available [facility] ([facility]) [address] [place], [address], 02/02/2015 17:17:15 01/28/20 15 02/01/2015 pap, IG + HPV, cervi [place] . . Not Available [facility] ([facility]) [address] [place], [address], 02/02/2015 17:17:15 01/28/20 15 02/01/2015 pap, IG [...] . Not Available [facility] ([facility]) [address] [place], [address], 02/02/2015 17:17:15 01/28/20 15 02/01/2015 pap, IG + HPV, cervi [place] test methodology: MATTHEW Pandya THIS LIQUI D BASED THINP REP(R ) PAP TEST WAS SCREE ELEONORA WITH THE USE OF AN IMAGE GUIDE Albert SYSTClaudy Soto. Not Available [facility] ([facility]) [address] [place], [address], 02/02/2015 17:17:15 01/28/20 15 02/02/2015 pap, IG + HPV, cervi [place] HPV aptima NEGATI VE negati ve THIS TEST DETEC TS FOURT EEN HIGH- RISK HPV TYPES (16/1 8/31/ 33/35 /39/4 5/ 51/52 /56/5 8/59/ 66/68 ) WITHO UT DIFFE RENTI ATION . Not Available [facility] ([facility]) [address], [place], [address], 02/02/2015 17:17:15 02/22/20 17 02/22/2017 HCG, intac t + beta subun it, quant , serum or plasm a HCG,beta subunit,qnt, serum 01478 mIU/m L Femal e (Non- pregn ant) 0 - 5 (Post menop ausal ) 0 - 8 Femal e (Preg nant) Weeks of Gesta tion 3 6 - 71 4 10 - 750 5 217 - 4338 6 158 - 30076 7 1267 -2568 63 8 22060 -9410 71 9 064453 -2504 10 10 72183 -9775 77 12 55477 -5298 12 14 17551 - 05429 15 72126 - 40522 16 6222 - 57486 17 3584 - 23959 18 4240 - 84708 [place] ECLIA metho dolog y Not Available [facility] ([facility]) [address] [facility], [place], [address], 02/22/2017 07:14:07 02/22/20 17 02/22/2017 proge stero ne, serum progesterone 19.4 NG/mL Folli cular phase 0.1 - 0.9 Lutea l phase 1.8 - 23.9 Ovula tion phase 0.1 - 12.0 Pregn ant First trime ster 11.0 - 44.3 Secon d trime ster 25.4 - 83.3 Third trime ster 58.7 - 214.0 Postm enopa usal 0.0 - 0.1 Not Available [facility] ([facility]) [address] [place], [address], 02/22/2017 07:14:08 03/16/20 17 03/19/2017 bacte rial vagin osis + vagin itis panel , vagin al chlamydia trachomatis, IRIS Negati ve negati ve Not Available [facility] ([facility]) [address] [place], [address], 03/21/2017 14:12:04 03/16/20 17 03/19/2017 bacte rial vagin osis + vagin itis panel , vagin al neisseria gonorrhoeae, IRIS Negati ve negati ve Not Available [facility] ([facility]) [address] [place], [address], 03/21/2017 14:12:04 03/16/20 17 03/20/2017 bacte rial vagin osis + vagin itis panel , vagin al nathaniel albicans, IRIS Negati ve negati ve Not Available [facility] ([facility]) [address] [place], [address], 03/21/2017 14:12:04 03/16/20 17 03/20/2017 bacte rial [...] miky. Not Available [facility] ([facility]) [address] [place], [address], 03/21/2017 14:12:04 03/16/20 17 03/20/2017 bacte rial vagin osis + vagin itis panel , vagin al trich vag by IRIS Positi ve negati ve abnormal Not Available [facility] ([facility]) [address] [place], [address], 03/21/2017 14:12:04 03/16/20 17 03/21/2017 bacte rial vagin osis + vagin itis panel , vagin al atopobium vaginae High - 2 score abnormal Not Available [facility] ([facility]) [address] [facility], [place], [address], 03/21/2017 14:12:04 03/16/20 17 03/21/2017 bacte rial vagin osis + vagin itis panel , vagin al bvab 2 High - 2 score abnormal Not Available [facility] ([facility]) [address] [place], [address], 03/21/2017 14:12:04 03/16/20 17 03/21/2017 bacte rial [...] miky. Not Available [facility] ([facility]) [address] [facility], [place], [address], 03/21/2017 14:12:04 03/16/20 17 03/20/2017 HSV (1+2) DNA, qual, PCR, unspe cifie d speci men hsv 1 IRIS Negati ve negati ve Not Available [facility] ([facility]) [address] [facility], [place], [address], 03/21/2017 14:12:07 03/16/20 17 03/20/2017 HSV (1+2) DNA, qual, PCR, unspe cifie d speci men hsv 2 IRIS Negati ve negati ve Not Available [facility] ([facility]) [address] [facility], [place], [address], 03/21/2017 14:12:07 03/16/20 17 03/18/2017 cultu re, [...] . Not Available [facility] ([facility]) [address] [facility], [place], [address], 03/21/2017 14:12:13 03/16/20 17 03/22/2017 toxas sure [...] magdalena consu ltati on, pleas e call . ===== ===== ===== ===== ===== ===== ===== ===== ===== ===== ===== ===== ===== === Not Available [facility] [address] [facility], [place], [address], 03/22/2017 20:08:58 03/16/20 17 03/22/2017 toxas sure selec t 13 (mw) pdf . Not Available [facility] [address] [facility], [place], [address], 03/22/2017 20:08:58 03/16/20 17 03/17/2017 CBC w/ auto diff WBC 14.6 x10e3 /uL 3.4-10 .8 above high normal Not Available [facility] ([facility]) [address] [place], [address], 03/22/2017 20:08:59 03/16/20 17 03/17/2017 CBC w/ auto diff RBC 4.28 x10e6 /uL 3.77-5 .28 Not Available [facility] ([facility]) [address] [place], [address], 03/22/2017 20:08:59 03/16/20 17 03/17/2017 CBC w/ auto diff hemoglobin 13.3 g/dL 11.1-1 5.9 Not Available [facility] ([facility]) [address] [place], [address], 03/22/2017 20:08:59 03/16/20 17 03/17/2017 CBC w/ auto diff hematocrit 41.1 % 34.0-4 6.6 Not Available [facility] ([facility]) [address] [facility] [place], [address], 03/22/2017 20:08:59 03/16/20 17 03/17/2017 CBC w/ auto diff MCV 96 fL 79-97 Not Available [facility] ([facility]) [address] [facility], [place], [address], 03/22/2017 20:08:59 03/16/20 17 03/17/2017 CBC w/ auto diff MCH 31.1 pg 26.6-3 3.0 Not Available [facility] ([facility]) [address] [facility], [place], [address], 03/22/2017 20:08:59 03/16/20 17 03/17/2017 CBC w/ auto diff MCHC 32.4 g/dL 31.5-3 5.7 Not Available [facility] ([facility]) [address] [facility], [place], [address], 03/22/2017 20:08:59 03/16/20 17 03/17/2017 CBC w/ auto diff RDW 12.8 % 12.3-1 5.4 Not Available [facility] ([facility]) [address] [facility], [place], [address], 03/22/2017 20:08:59 03/16/20 17 03/17/2017 CBC w/ auto diff platelets 360 x10e3 /uL 150-37 9 Not Available [facility] ([facility]) [address] [place], [address], 03/22/2017 20:08:59 03/16/20 17 03/17/2017 CBC w/ auto diff neutrophils 75 % not estab. Not Available [facility] ([facility]) [address] [facility], [place], [address], 03/22/2017 20:08:59 03/16/20 17 03/17/2017 CBC w/ auto diff lymphs 17 % not estab. Not Available [facility] ([facility]) [address] [place], [address], 03/22/2017 20:08:59 03/16/20 17 03/17/2017 CBC w/ auto diff monocytes 7 % not estab. Not Available [facility] ([facility]) [address] [place], [address], 03/22/2017 20:08:59 03/16/20 17 03/17/2017 CBC w/ auto diff eos 1 % not estab. Not Available [facility] ([facility]) [address] [place], [address], 03/22/2017 20:08:59 03/16/20 17 03/17/2017 CBC w/ auto diff basos 0 % not estab. 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 0 above high normal Not Available [facility] ([facility]) [address] [place], [address], 03/22/2017 20:08:59 03/16/20 17 03/17/2017 CBC w/ auto diff lymphs (absolute) 2.5 x10e3 /uL 0.7-3. 1 Not Available [facility] ([facility]) [address] [place], [address], 03/22/2017 20:08:59 03/16/20 17 03/17/2017 CBC w/ auto diff monocytes(ab solute) 1.0 x10e3 /uL 0.1-0. 9 above high normal Not Available [facility] ([facility]) [address] [place], [address], 03/22/2017 20:08:59 03/16/20 17 03/17/2017 CBC w/ auto diff eos (absolute) 0.2 x10e3 /uL 0.0-0. 4 Not Available [facility] ([facility]) [address] [place], [address], 03/22/2017 20:08:59 03/16/20 17 03/17/2017 CBC w/ auto diff baso (absolute) 0.0 x10e3 /uL 0.0-0. 2 Not Available [facility] ([facility]) [address] [place], [address], 03/22/2017 20:08:59 03/16/20 17 03/17/2017 CBC w/ auto diff immature granulocytes 0 % not estab. Not Available [facility] ([facility]) [address] [place], [address], 03/22/2017 20:08:59 03/16/20 17 03/17/2017 CBC w/ auto diff immature grans (abs) 0.0 x10e3 /uL 0.0-0. 1 Not Available [facility] ([facility]) [address] [place], [address], 03/22/2017 20:08:59 03/16/20 17 03/17/2017 CBC w/ auto diff NRBC BIOMEDICAL EQUIPMENT SPECIALIST Not Available [facility] ([facility]) [address] [place], [address], 03/22/2017 20:08:59 03/16/20 17 03/17/2017 CBC w/ auto diff hematology comments: BIOMEDICAL EQUIPMENT SPECIALIST Not Available [facility] ([facility]) [address] [place], [address], 03/22/2017 20:08:59 03/16/20 17 03/17/2017 type + scree n, serum ABO grouping O Not Available [facility] ([facility]) [address] [place] [address], [address], 03/22/2017 20:08:59 03/16/20 17 03/17/2017 type + scree n, serum Rh factor Positi ve Pleas e note: Prior recor ds for this patie nt's ABO / Rh type are not avail able for addit ional verif icati on. Not Available [facility] ([facility]) [address] [place], [address], 03/22/2017 20:08:59 03/16/20 17 03/17/2017 type + scree n, serum antibody screen Negati ve negati ve Not Available [facility] ([facility]) [address] [place] [address], [place], [address], 03/22/2017 20:08:59 03/16/20 17 03/17/2017 TSH, ultra -sens itive , serum TSH 0.722 uIU/m L 0.450- 4.500 Not Available [facility] ([facility]) [address] [place] [address], [address], 03/22/2017 20:09:00 03/16/20 17 03/17/2017 HCG, intac t + beta subun it, quant , serum or plasm a HCG,beta subunit,qnt, serum 18830 mIU/m L Femal e (Non- pregn ant) 0 - 5 (Post menop ausal ) 0 - 8 Femal e (Preg nant) Weeks of Gesta tion 3 6 - 71 4 10 - 750 5 578 - 8584 6 850 - 99403 7 0398 -2943 63 8 50706 -0496 71 9 61020 -6210 10 10 24479 -0733 77 12 10001 -0288 12 14 30033 - 63964 15 62818 - 31602 16 1094 - 79680 17 7343 - 64274 18 2531 - 42243 [place] ECLIA metho dolog y Not Available [facility] ([facility]) [address] [place], [address], 03/22/2017 20:09:00 03/16/20 17 03/17/2017 hemog lobin S (hbs) , prese nce, blood hemoglobin (HGB) solubility Negati ve negati ve Not Available [facility] ([facility]) [address] [facility], [place], [address], 03/22/2017 20:09:01 03/16/20 17 03/17/2017 rubel la IgG Ab, quant immun oassa y, serum or plasm a rubella antibodies, IgG 0.99 index immune >0.99 below low normal A secon d sampl e shoul d be colle cted and teste d no less than 2-4 weeks . Non-i mmune <0.90 Equiv ocal 0.90 - 0.99 Immun e >0.99 Not Available [facility] ([facility]) [address] [facility], [place], [address], 03/22/2017 20:09:01 03/16/20 17 03/17/2017 RPR (rapi d plasm a reagi n), serum RPR Non Reacti ve non reacti ve Not Available [facility] ([facility]) [address] [place], [address], 03/22/2017 20:09:01 03/16/20 17 03/17/2017 HIV 1+2 AB + HIV 1 p24 Ag, quali tativ e immun oassa y, serum HIV screen 4TH generation wrfx Non Reacti ve non reacti ve Not Available [facility] ([facility]) [address] [place], [address], 03/22/2017 20:09:02 03/16/20 17 03/17/2017 varic laura [...] se. Not Available [facility] ([facility]) [address] [facility], [place], [address], 03/22/2017 20:09:02 03/16/20 17 03/17/2017 hsv-2 (herp [...] . Not Available [facility] [facility]) [address] [facility], [place], [address], 03/22/2017 20:09:03 03/16/20 17 03/17/2017 proge stero ne, serum progesterone 22.9 NG/mL Folli cular phase 0.1 - 0.9 Lutea l phase 1.8 - 23.9 Ovula tion phase 0.1 - 12.0 Pregn ant First trime ster 11.0 - 44.3 Secon d trime ster 25.4 - 83.3 Third trime ster 58.7 - 214.0 Postm enopa usal 0.0 - 0.1 Not Available [facility] ([facility]) [address] [facility], [place], [address], 03/22/2017 20:09:03 03/16/20 17 03/17/2017 HBsAg (hepa titis B surfa ce Ag), EIA, serum HBsAg screen Negati ve negati ve Not Available [facility] ([facility]) [address] [facility], [place], [address], 03/22/2017 20:09:04 03/16/20 17 03/18/2017 cultu re, urine urine culture, routine Final report Not Available [facility] ([facility]) [address] [facility], [place], [address], 03/22/2017 20:09:04 03/16/20 17 03/18/2017 cultu re, urine result 1 Commen t Mixed uroge nital priscilla 10,00 0-25, 000 colon y formi ng units per mL Not Available [facility] ([facility]) [address] [facility], [place], [address], 03/22/2017 20:09:04 03/23/20 17 03/23/2017 US, obste tric, 1st trime ster No observ ation record ed. [facility] (Imaging) [address] [place], [address], 03/23/2017 16:13:41 Result Notes None recorded. Problems Name Problem SNOMED Code Status Onset Date Resolution Date Notes Provider Name and Address Organization Details Recorded Time test positive 898069563 Active 2016 Niesha Souza PA-C Attn: Accounting ,[address] [place], [address] , [facility] 7 12:00:55 16557178 Completed 201601/02/2018 Erica peguero, [place] - [facility] 8 12:04:13 Anemia 267717593 Active Niesha Souza PA-C Attn: Accounting ,[address] [place], [address] , [facility] 5 12:02:41 Tobacco dependence syndrome 29424251 Active Niesha Souza PA-C Attn: Accounting ,[address] [place], [address] , [facility] 5 12:21:27 Knee pain Active 2016 Niesha Souza PA-C Attn: Accounting ,[address], [place], [address] , [place] [facility] 7 12:13:27 Problem Notes None recorded. Procedures Surgical History Date Name Laterality Status Provider Name and Address Organization Details Recorded Time 12/01/2016 Date of Last Pap Smear completed Edith Beckham [place] 03/16/2017 14:52:16 Imaging Results Imaging Date Name Status LastModified by Organiz ation Details LastModified Time 03/23/2017 US, obstetric, 1st trimester completed [facility] (Imaging) [address] [place], [address], 03/23/2017 16:13:41 Procedure Notes None recorded. Medical Equipment None Reported. Allergies Allergen ID Allergen Name Allergen Category Reaction Reaction Severity Criticality Documentation Date Start Date Code Code System Note Provider Name and Address Organization Details Recorded Time 46915 latex environme nt,medica tion hives mild Not available 01/25/2015 34022 91 RxNorm Not Available Not Available Not [...] kg/m2 118 mm[Hg] 74 mm[Hg] Edith Beckham [facility] 03/16/2017 15:06:56 Date Recorded Body weight Provider Name an d Address Organization Details Last Updated DateTime 03/16/2017 00196.12541 g Jazmyne fitch MD Attn: Accounting,[address] [place], [address], [facility] 03/16/2017 15:34:59 Date Recorded Respiratory rate Body weight Oxygen saturation Oxygen saturation in Arterial blood by Pulse oximetry Body height Body mass index (BMI) Body temperature Heart rate Systolic blood pressure Diastolic blood pressure Provider Name and Address Organization Details Last Updated DateTime 5 20 /min 83538.4 09983 g 99 % 99 % 169.545 cm 19 kg/m2 98.3 [degF] 76 /min 124 mm[Hg] 72 mm[Hg] [facility] 11:45:37 Date Recorded Respiratory rate Body weight Oxygen saturation Oxygen saturation in Arterial blood by Pulse oximetry Body height Body mass index (BMI) Body temperature Heart rate Systolic blood pressure Diastolic blood pressure Provider Name and Address Organization Details Last Updated DateTime 5 20 /min 59654.4 07092 g 98 % 98 % 169.545 cm 19.2 kg/m2 98.6 [degF] 82 /min 120 mm[Hg] 78 mm[Hg] Cuong [facility] 5 15:19:13 Date Recorded Body weight Oxygen saturation Oxygen saturation in Arterial blood by Pulse oximetry Heart rate Respiratory rate Body temperature Systolic blood pressure Diastolic blood pressure Provider Name and Address Organization Details Last Updated DateTime 7 42840.7 1 g 95 % 95 % 94 /min 12 /min 98 [degF] 120 mm[Hg] 74 mm[Hg] Km Patiño [facility] 7 11:44:08 Date Recorded Body height Body mass index (BMI) Provider Name and Address Organization Details Last Updated DateTime 12/07/2016 169.55 cm 22.4 kg/m2 Niesha Souza PA-C Attn: [facility],[address] [place], [address], [place] [facility] 12/07/2016 12:16:12 Date Recorded Body height Body mass index (BMI) Body weight Heart rate Respiratory rate Body temperature Systolic blood pressure Diastolic blood pressure Provider Name and Address Organization Details Last Updated DateTime 7 169.55 cm 22.6 kg/m2 70383.5 1 g 100 /min 20 /min 98 [degF] 130 mm[Hg] 72 mm[Hg] Km Patiño [facility] 7 11:40:27 Social History Question Answer Notes LastModified by Organizat ion Details LastModified Time Tobacco Smoking Status Current Every Day Smoker Cuong Guardado MA [facility], [place] - [facility] 01/25/2015 11:45:37 Do You Have An Advance Directive? No [email or web address] Information not available 01/25/2015 What Is Your Level Of Alcohol Consumption? Occasional [email or web address] Information not available 01/25/2015 If You Are [...] Is Your Level Of Caffeine Consumption? Occasional [email or web address] Information not available 01/25/2015 Live With Cats/exposure To Cat Litter No Information not available 03/16/2017 How Much Tobacco Do You Chew? None [email or web address] Information not available 01/25/2015 Are You Currently Employed? No Information not available 03/16/2017 What Type Of Diet Are You Following? REGULAR [email or web address] Information not available 01/25/2015 Which Illicit Or Recreational Drugs Have You Used? 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 No Information no t available 03/16/2017 Frequent Air Travel No Information not available 03/16/2017 Are There Any Guns Present In Your Home? Yes Information not available 01/25/2015 Hard Of Hearing Or Deaf In One Or Both Ears? No Information not available 01/25/2015 Illicit Drugs Pre- None Information not available 03/16/2017 Legally Blind In One Or Both Eyes? No [email or web address] Information no t available 01/25/2015 Live Alone Or With Others? With Others Information not available 01/25/2015 Marital Status Informatio n not available 03/16/2017 What Was The Date Of Your Most Recent Tobacco Screening? 03/16/2017 Information not available 10/24/2018 How Many Children Do You Have? 1 [email or web address] Information not available 01/25/2015 Do You Use Protection During Sex? Always [email or web address] Information not available 01/25/2015 Seat Belts Used Routinely Yes [email or web address] Information not available 01/25/2015 Are You Sexually Active? Yes [email or web address] Information not available 01/25/2015 Smoke Alarm In Home Yes [email or web address] Information not available 01/25/2015 Do You Have Smoke And Carbon Monoxide Detectors In Your Home? Yes Information not available 03/16/2017 At What Age Did You Start Smoking Tobacco? 20 [email or web address] Information not available 01/25/2015 Are You Passively Exposed To Smoke? No [email or web address] Information no t available 01/25/2015 How Much Tobacco Do You Smoke? 0.5 PPD Information not available 01/25/2015 Smoking Pre- Yes Information not available 03/16/2017 General Stress Level Low [email or web address] Information not available 01/25/2015 Do You Use Sunscreen Routinely? Yes Information not available 03/16/2017 Supplements Prenartal Vitamin Information not available 03/16/2017 How Many Years Have You Smoked Tobacco? 14 [email or web address] Information not available 01/25/2015 Sex: Unknown Functional Status Question Answer Note LastModified by Organization D etails LastModified Time Are you able to care for yourself? Yes Information n ot available 01/25/2015 What is your exercise level? None [email or web address] Information not available 01/25/2015 Mental Status None recorded. Family History Relationship Description Onset Age of this Age Resolved Age Notes LastModified by Organization Details LastModified Time Mother Asthma Not available 1 15:19:13 Mother Malignant neoplasm of ovary Cancer sprede d throug h out brain, bones, blood & throug h out body Not available 03/16/2017 14:55:40 Brother Asthma [email or web address] Not available 01/27/2015 15:19:13 Son Asthma [email or web address] Not available 1 15:19:13 Medical History Condition [...] virus, quadrivalent, preservative 5 completed Not Available [facility] 04/19/2019 02:32:10 Past Encounters Encounter ID Performer Location Encounter Start Date Encounter Closed Date Diagnosis/Indication Diagnosis SNOMED-CT Code Diagnosis ICD10 Code Diagnosis Note [id number] JOSE ANTONIO [facility] (Adult Med) [address] [place] [address] [phone] 01/25/2015 11:23:59 01/25/2015 12:21:57 Adult health examination 232807649 Z00.00 Active or passive immunization 313804759 Z23 Tobacco de pendence syndrome 67043426 F17.290 Currently cutting down - she and her are actively trying to conceive so she knows that she needs to quit smoking - her does not smoke so she feels that once she gets she will be able to not smoke following [id number] JOSE ANTONIO Chance (Adult Med) [address] [place] [address] [id number] 0 01/27/2015 15:07:58 01/27/2015 18:01:16 Gynecologic examination 35020189 Z01.419 Patient advised that if they unable to conceive over the next 6 months to RTC [id number] JOSE ANTONIO Chance (Adult Med) [address] [place] [address] [phone] 0 12/07/2016 11:22:53 12/11/2016 11:22:01 Tobacco dependence syndrome 69912977 F17.290 Advised to quit - she has no interest in quitting smoking Allergic rhinitis 461262 04 J30.9 Knee pain 99159286 M25.5 62 left knee - at this time advised patient that I cannot release her back to work until I see her ER note and see that her xray results were WNL - will contact patient when I have note Will refer to PT at this time 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 Adult heal th examination 359059696 Z00.01 will check basic labs [id number] JOSE ANTONIO Chance (Adult Med) [address] [place] [phone] 0 02/21/2017 11:32:05 02/21/2017 13:42:46 Missed period 11870273 N92.5 test positive 389591904 Z32.01 LMP: 01/08/17EOC : 10/14/16 Advised to make an appointmen t with OBGYN since they will be following her for her NO alcohol, tobacco, ibuprofen [id number] MD Ricardo Pinto (DEPOT AGENT) [address] [place] [address] 03/16/2017 14:12:48 03/16/2017 16:17:32 Routine care 858540906 Z34.80 Urinary tr act infectious disease 10318690 N39.0 Counseled about it. Health Concerns Section Related Observation LastModified by Organization Detai ls LastModified Time None Recorded Concern Status LastModified by Organization Details LastModified Time None Recorded Advance Directives Directive N: Payers Encounter Date Sequence Insurance Name Policy Number Policy Ibrahim Covered Member ID Ibrahim Member ID Guarantor Name 01/25/2015 1 [facility] PRIOR TO 09/30/2020 (MEDICAID REPLACEMENT - HMO) Kellie Springer [id number] Kellie Gramajo 01/27/2015 1 [facility] PRIOR TO 09/30/2020 (MEDICAID REPLACEMENT - HMO) Kellie Cookgan [id number] Kellie Gramajo 12/07/2016 1 [facility] PRIOR TO 09/30/2020 (MEDICAID REPLACEMENT - HMO) Kellie Racheal [id number] Kellie Gramajo 02/21/2017 1 [facility] PRIOR TO 09/30/2020 (MEDICAID REPLACEMENT - HMO) Kellie Racheal [id number] Kellie Gramajo 03/16/2017 1 [facility] PRIOR TO 09/30/2020 (MEDICAID REPLACEMENT - HMO) Kellie Springer [id number] Kellie Gramajo Notes Date Note Type Note Provider Name and Address Organization Details Recorded Time 01/25/2015 text/html Here to ana paula collins and is requesting flu vaccine Niesha Souza PA-C Attn: Accounting,[address] [place], [address], [facility] 01/25/2015 12:21:47 12/07/2016 text/html KneeReported [...] years. ER visit 1 month ago at [facility] was for fall and left leg [...] or worse. Niesha Souza PA-C Attn: Accounting,[address] [place], [address], [facility] 12/07/2016 13:37:57 02/21/2017 text/html States that she took 9 tests at home that were all positive. LMP 01/08/17.States she has not smoked in 4 days and plans to stay smoke free Niesha Souza PA-C Attn: Accounting,[address] [place], [address], [facility] 02/21/2017 12:01:36 03/16/2017 text/html OB ProblemReport ed bypatient.Associated Symptoms:no abdominal pain; no cramping; no contractions; no bleeding; no ROM; no vaginal discharge; no vaginal/vulvar itching or irritation; no dysuria; no frequency; no urgency; no hematuria; no fever; no nausea; no emesis; no constipation; no diarrhea/loose stool; no edema; no visual changes; no headache; no dizziness Jazmyne Machuca MD Attn: Accounting,[address] , [place], [address], [place] [facility] 03/16/2017 15:53:09 OBGyn Episode Ob Episode Information Episode Created Date Number of Fetuses Patient Bloodtype Patient rh Status Prepregnancy Weight lbs Domestic Partner Domestic Partner Phone Father Name Oxygraph Operator Status 03/16/20 17 1 CLOSED Fetus Data First Name Last Name Admitted to NICU Weight (g) Sex Living Outcome Pediatric Complications Fetus ID Race Codes Race Delivery Type 3288.54 2 M Full Term 11783 Vaginal Booker Calculation Initial Booker Date Initial [...] Domestic Partner Domestic Partner Phone Father Name Oxygraph Operator Status 03/16/20 17 1 O Positive 142 CLOSED Fetus Data First Name Last Name Admitted to NICU Weight (g) Sex Living Outcome Pediatric Complications Fetus ID Race Codes Race Delivery Type [id number] Booker Calculation Initial Booker Date Initial Exam [...] Type Weight in lbs Pre/Post Dialysis Refused 142.869498855299 BP Diastolic BP Location Tested BP Systolic [...] Estim ated Date of Delivery false Thalassemia (British, Danish, Mediterranean, Or Background): MCV < 80 false Neural Tube Defect (Meningomyelocele, Spina Bifi da, Or Anencephaly) false Congenital Heart Defect false Down Syndrome false Martín-Sachs (eg, Orthodox, Cajun, Kosovan-Peruvian) f alse Nella Disease false Sickle Cell Disease Or Trait () false Hemophilia Or Other Blood Disorders false Muscular Dystrophy false Cystic Fibrosis false Grabill's Chorea false Mental Retardation/Autism false If Yes, [...] 03/16/2017 Risk factors identif ied by history [facility] 03/16/2017 Weight gain counseling [facility] 03/16/2017 Exercise [facility] 03/16/2017 Teratogens [facility] 03/16/2017 Use of any medicatio ns (including supplements, vitamins, herbs, or OTC drugs) [facility] 03/16/2017 [facility] 03/16/2017 Sexual activity [facility] 03/16/2017 Tobacco/smoking cess ation counseling (ask, advise, assess, assist, and arrange) [facility] 03/16/2017 Illicit/recreational drugs [facility] 03/16/2017 Dental care [facility] 03/16/2017 Travel [facility] 03/16/2017 Seat belt use [facility] 03/16/2017 Indications for ultrasonography [facility] 03/16/2017 Avoidance of saunas or hot tubs [facility] 03/16/2017 Toxoplasmosis precautions (cats/raw meat) [facility] Second Trimester Discussed Date Discussion Item Discussion [...]
--- OUTSIDE RECORDS SUMMARY | 2024-07-27 16:37 | XMS_ITS | Clinical Summary ---
Author Organization [facility] Address [address] [place] [address] Care Team Providers Care Accounting Supervisor Name Role Phone Unavailable Primary Care Provider Unavailabl e Allergies Active Allergy Reactions Criticality Noted Date Comments Latex Rash,Unknown Medium 09/14/2017 Medications aspirin 81 MG chewable tablet Chew 1 tablet (81 mg total) by mouth daily. 5 Active ferrous sulfate, 65 mg elemental, 325 (65 FE) MG tablet Take 1 tablet (325 mg total) by mouth daily. Active 28-0.8 MG tablet Take 1 tablet by mouth daily. Active insulin glargine (LANTUS) 100 UNIT/ML injection (PEN) 20 units subcutaneous QAM 24 units subcutaneous QPM 1 mL 3 5 Active insulin lispro, 1 Unit Dial, (HUMALOG) 100 UNIT/ML injection (PEN) 10 units with each meal 3 mL 3 5 Active cephALEXin (KEFLEX) 500 MG capsule Take 1 capsule (500 mg total) by mouth daily. 025 Discontin ued(Stop Taking at Discharge ) insulin regular (NOVOLIN R/HUMULIN R) 100 UNIT/ML injection Inject 10 Units into the skin 2 (two) times daily. 10 units in morning 10 units at night 025 Discontin ued(Stop Taking at Discharge ) insulin glargine (LANTUS) 100 UNIT/ML injection (PEN) Inject 20 Units into the skin every morning. 025 Discontin ued(Stop Taking at Discharge ) insulin glargine (LANTUS) 100 UNIT/ML injection (PEN) Inject 16 Units into the skin nightly at bedtime. 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 ([facility]) 07/04/2024 ([facility]) 07/03/2024 Estimated Date of Delivery Comme nts Yes 08/26/2024 Based on Other B asis Encounters Date Type Department Care Team Description 07/04/2024 Travel 07/03/2024 5:36 PM CDT - 07/04/2024 1:05 PM CDT Hospital Encounter [facility] [place] [address] Carley Mckeon MD (Insulin management and teaching ) Discharge Disposition: Home or Self Care (Routine Discharge) 07/03/2024 Travel from Last 3 Months Social History Tobacco Use Types Packs/Day Years Used Date Smoking Tobacco: Never Smokeless Tobacco: Never Tobacco Cessation:Counseling Given: Not Answered Alcohol Use Standard Drinks/Week Comments Not Currently 0 (1 standard drink = 0.6 oz pur e alcohol) B1300 Health Literacy Answer Date Recor ded How often do you need to hav e someone help you when you read instructions, pamphlets, or other written material from your doctor or pharmacy? Never 07/04/2024 [employer] Answer Date Recorded In the past 12 months has e MDL[employer], gas, oil, or water Quantitative Medicine threatened to shut off services in your home? No 07/04/2024 Humiliation, Afraid, Rape, and Kick questionnair e Answer Date Recorded Within the last year, have y ou been afraid of your partner or ex-partner? No 07/04/2024 Within the last year, have y ou been humiliated or emotionally abused in other ways by your partner or ex-partner? No Within the last year, have y ou been kicked, hit, slapped, or otherwise physically hurt by your partner or ex-partner? No 07/04/2024 Within the last year, have y ou been raped or forced to have any kind of sexual activity by your partner or ex-partner? No 07/04/2024 Social Connection and Isolat ion Panel [NHANES] Answer Date Recorded In a typical week, how many times do you talk on the phone with family, friends, or neighbors? More than three times a week 07/04/2024 How often do you get togethe r with friends or relatives? More than three times a week 07/04/2024 How often do you attend chur ch or mu-ism services? More than 4 times per year 07/04/2024 Do you belong to any clubs o r organizations such as judaism groups, unions, fraternal or athletic groups, or school groups? Yes 07/04/2024 How often do you attend meet ings of the clubs or organizations you belong to? More than 4 times per year 07/04/2024 Are you , , di vorced, , never , or living with a partner? 07/04/2024 AUDIT-C Answer Date Recorded Q1: How often do you have a drink containing alcohol? Never 07/04/2024 Q2: How many drinks containi ng alcohol do you have on a typical day when you are drinking? Patient does not drink Q3: How often do you have si x or more drinks on one occasion? Never 07/04/2024 Overall Financial Resource Strain (CARDIA) Answe r Date Recorded How hard is it for you to pa y for the very basics like food, housing, medical care, and heating? Not very hard 07/04/2024 PHQ-2 Answer Date Recorded Patient Health Questionnaire-2 Score 0 07/04/2024 [facility] - Occupational Stress Questionnaire Answer Date Recorded Do you feel stress - tense, restless, nervous, or anxious, or unable to sleep at night because your mind is troubled all the time - these days? Only a little 07/04/2024 Exercise Vital Sign Answer Date Recorde d On average, how many days pe r week do you engage in moderate to strenuous exercise (like a brisk walk)? 4 days 07/04/2024 On average, how many minutes do you engage in exercise at this level? 10 min 07/04/2024 Hunger Vital Sign Answer Date Recorded Within the past 12 months, y ou worried that your food would run out before you got the money to buy more. Never true 07/05/19 25 Within the past 12 months, t he food you bought just didn't last and you didn't have money to get more. Never true 07/04/2024 PRAPARE - Transportation Answer Date Re corded In the past 12 months, has l ack of transportation kept you from medical appointments or from getting medications? No 07/2024 In the past 12 months, has l ack of transportation kept you from meetings, work, or from getting things needed for daily living? No 07/04/2024 Housing Stability Vital Sign Answer Checo e Recorded In the last 12 months, was t here a time when you were not able to pay the mortgage or rent on time? No 07/04/2024 In the past 12 months, how m any times have you moved where you were living? 1 07/04/2024 At any time in the past 12 m [facility], were you homeless or living in a correction (including now)? No 07/04/2024 Estimated Date of Delivery Comme nts Yes 08/26/2024 Based on Other B asis Sex and Gender Information Value Date Recorded Sex Assigned at Not on file Legal Sex Female 8:03 PM CDT Gender Identity Not on file Sexual Orientation Not on file Last Filed Vital Signs Vital Sign Reading Time Taken Comments Blood Pressure 112/57 07/04/2024 8:49 AM CDT Pulse 96 07/04/2024 8:49 AM CDT Temperature 36.6 C (97.9 F) 07/04/2024 8:49 AM CDT Respiratory Rate 18 07/04/2024 8:49 AM CDT Oxygen Saturation 98% 07/04/2024 4:29 AM CDT Inhaled Oxygen Concentration - - Weight 88.5 kg (195 lb) 07/03/2024 6:09 PM CDT Height 170.2 cm (5' 7 ) 07/03/2024 6:09 PM CDT Body Mass Index 30.54 07/03/2024 6:09 PM CDT Plan of Treatment Health Maintenance Due Date Last Done Comments Cervical Cancer Screening Pa p Smear (Age 30 to 64) Every 3 Years 1982 Annual Physical 1985 Hepatitis B Vaccines (1 of 3 - 19+ 3-dose series) 2001 Cervical Cancer Screening Pa p with HPV Testing (Age 30 to 64) Every 5 Years 2012 Cervical Cancer Screening wi th HPV 2012 Mammogram Screening 2022 COVID-19 Vaccine (2023-2 5 season) 2023 DTaP, Tdap and Td Vaccines ( 3 - Td or Tdap) 05/29/2034 05/29/2024, 10/09/2017 Hepatitis C Completed 05/27/2024 HPV Vaccines Aged Out No longer eligi ble based on patient's age to complete this topic Meningococcal B Vaccine Aged Out No l onger eligible based on patient's age to complete this topic Meningococcal Vaccine Aged Out No raul cayden eligible based on patient's age to complete this topic Pneumococcal Vaccine: Pediatrics (0 to 5 Years) and At-Risk Patients (6 to 49 Years) Aged Out No longer eligible b ased on patient's age to complete this topic RSV Immunization or 60+ Years (No Doses Required) Completed RSV Immunizations Under 20 Months Aged Out No longer eligible b ased on patient's age to complete this topic Procedures Procedure Name Priority Date/Time Associated Diagnosis Comments POCT GLUCOSE - PALOMINO DOCKED DEVICE Routine 07/04/2024 10:02 AM CDT POCT GLUCOSE - PALOMINO DOCKED DEVICE Routine 07/04/2024 6:29 AM CDT POCT GLUCOSE - PALOMINO DOCKED DEVICE Routine 07/03/2024 8:31 PM CDT CREATININE URINE RANDOM STAT 07/03/2024 6:44 PM CDT PROTEIN TOTAL URINE RANDOM STAT 07/03/2024 6:44 PM CDT DRUG SCREEN RAPID STAT 07/03/2024 6:4 4 PM CDT ([facility]) HC URINALYSIS AUTO W/O MICRO STAT 07/03/2024 6:44 PM CDT ([facility]) POCT GLUCOSE - PALOMINO DOCKED DEVICE Routine 07/03/2024 6:25 PM CDT HEMOGLOBIN, GLYCOSYLATED STAT 07/03/2024 5:55 PM CDT COMPREHENSIVE METABOLIC PANEL STAT 07/03/2024 5:55 PM CDT ([facility]) CBC W/DIFF AUTOMATED STAT 07/03/2024 5:55 PM CDT (HHS/HCC) from Last 3 Months Results * (ABNORMAL) POCT glucose (07/04/2024 10:02 AM CDT) Only the most recent of4 resultswithin the time period is included. GLUCOSE POC 126(H) 70 - 99 mg/dL 07/04/2024 10:06 AM CDT [facility] 07/04/2024 10:0 2 AM CDT us Carley Mckeon MD POCT ORDERABLES - DEVICE Fin al Result Performing Organization Address City/[facility] Co de Phone Number [facility] [address] [place] [address], [place] [phone] * (ABNORMAL) PROTEIN TOTAL URINE RANDOM (07/03/2024 6:44 PM CDT) PROTEIN URINE TOTAL RANDOM 23.7(H) <10 MG/DL 07/03/2024 8:14 PM CDT [facility] URINE SPECIMEN / Unknown 07/03/2024 6:44 PM CDT us Carley Mckeon MD URINE ORDERABLES Final Resul t [facility] [address] [place] [address], [place] [phone] * CREATININE URINE RANDOM (07/03/2024 6:44 PM CDT) CREATININE (U) 163.0 28 - 217 MG/DL 07/03/2024 8:14 PM CDT [facility] URINE SPECIMEN / Unknown 07/03/2024 6:44 PM CDT us Carley Mckeon MD URINE ORDERABLES Final Resul t [facility] [address] [place] [address], [place] [phone] * (ABNORMAL) DRUG SCREEN RAPID (07/03/2024 6:44 PM CDT) Pathologist [facility] AMPHETAMINE (U) NEGATIVE NEGATIVE 8:14 PM CDT [facility] BARBITURATES SCREEN (U) NEGATIVE NEGATIVE 07/03/2024 8:14 PM CDT [facility] BENZODIAZEPINES SCREEN (U) NEGATIVE NEGATIVE 07/03/2024 8:14 PM CDT [facility] CANNABINOIDS SCREEN (U) POSITIVE(A) NEGATIVE 07/03/2024 8:14 PM CDT [facility] COCAINE METABOLITES (U) NEGATIVE NEGATIVE 07/03/2024 8:14 PM CDT [facility] METHADONE (U) NEGATIVE NEGATIVE 07/03/2024 8:14 PM CDT [facility] OPIATE SCREEN (U) NEGATIVE NEGATIVE 025 8:14 PM CDT [facility] PHENCYCLIDINE PCP (U) NEGATIVE NEGATIVE 07/03/2024 8:14 PM CDT [facility] Comment: NOTE: RESULTS OF THIS DRUG SCREEN SHOULD BE USED FOR MEDICAL PURPOSES ONLY AND NOT FOR LEGAL OR EMPLOYMENT PURPOSES. POSITIVE RESULTS ARE NOT CONFIRMED. MEDICATIONS CONTAINING EPHEDRINE MAY CAUSE FALSE POSITIVE AMPHETAMINE CALL [phone], LAB, TO REQUEST CONFIRMATION TESTING. IF CREATININE IS <40 mg/dL. RECOLLECTION IS SUGGESTED. AMPHETAMINE- 500 NG/ML BARBITURATE- 200 NG/ML BENZODIAZEPINES- 200 NG/ML THC- 50 NG/ML COCAINE- 150 NG/ML METHADONE- 300 NG/ML OPIATE- 300 MG/ML PCP- 25 NG/ML CREATININE (U) 164.0 28 - 217 MG/DL 07/03/2024 8:14 PM CDT [facility] URINE SPECIMEN / Unknown 07/03/2024 6:44 PM CDT us Carley Mckeon MD URINE ORDERABLES Final Resul t [facility] [address] [place] [address], * (ABNORMAL) URINALYSIS (07/03/2024 6:44 PM CDT) SPECIMEN TYPE URINE CLEAN CATCH 07/03/2024 6:44 PM CDT [facility] COLOR (U) YELLOW 07/03/2024 7:52 PM CDT [facility] TRANSPARENCY TURBID 07/03/2024 7:52 PM CDT [facility] SPECIFIC GRAVITY (U) 1.025 1.001 - 1.030 07/03/2024 7:52 PM CDT [facility] U PH 6.0 5.0 - 9.0 07/03/2024 7:52 PM CDT [facility] LEUKOCYTES (U) NEGATIVE NEGATIVE 07/03/2024 7:52 PM CDT [facility] NITRITES NEGATIVE NEGATIVE 07/03/2024 7:52 PM CDT [facility] PROTEIN RANDOM (U) 10 <30 MG/DL 07/03/2024 7:52 PM CDT [facility] GLUCOSE (U) 200(A) NORMAL MG/DL 07/03/2024 7:52 PM CDT [facility] KETONES MG/DL (U) NEGATIVE NEGATIVE MG/DL 07/03/2024 7:52 PM CDT [facility] UROBILINOGEN NORMAL NORMAL MG/DL 07/03/2024 7:52 PM CDT [facility] BILIRUBIN (U) NEGATIVE NEGATIVE MG/DL 07/03/2024 7:52 PM CDT [facility] BLOOD (U) NEGATIVE NEGATIVE 07/03/2024 7:52 PM CDT [facility] URINE SPECIMEN OBTAINED BY CLEAN CATCH PROCEDURE / Unknown 07/03/2024 6:44 PM CDT Carley Mckeon MD URINE ORDERABLES Final Resul t [facility] [address] [place] [address], [place] [phone] * (ABNORMAL) HEMOGLOBIN, GLYCOSYLATED (07/03/2024 5:55 PM CDT) HGB A1C 5.7(H) <5.7 % 07/03/2024 6:52 PM CDT [facility] Comment: ADA GUIDELINES 2010 5.7 TO 6.4% INCREASED RISK OF DIABETES > OR = 6.5% CONSISTENT WITH DIABETES ESTIMATED AVG GLUCOSE 117 mg/dL 07/03/2024 6:52 PM CDT [facility] 07/03/2024 5:55 PM CDT Carley Mckeon MD LABORATORY Final Result [facility] [address] [place] [address], [place] [phone] * (ABNORMAL) COMPREHENSIVE METABOLIC PANEL (07/03/2024 5:55 PM CDT) GLUCOSE 124(H) 70 - 99 MG/DL 07/03/2024 6:34 PM CDT [facility] BUN 7 7 - 18 MG/DL 07/03/2024 6:34 PM CDT [facility] CREATININE S/P/B 0.47(L) 0.55 - 1.02 MG/DL 07/03/2024 6:34 PM CDT [facility] SODIUM S/P/B 135(L) 136 - 145 MMOL/L 07/03/2024 6:34 PM CDT [facility] POTASSIUM S/P/B 3.5 3.5 - 5.1 MMOL/L 07/03/2024 6:34 PM CDT [facility] CHLORIDE S/P/B 104 97 - 115 MMOL/L 07/03/2024 6:34 PM CDT [facility] CO2 22.3 21 - 32 MMOL/L 07/03/2024 6:34 PM CDT [facility] CALCIUM S/P/B 8.9 8.5 - 10.1 MG/DL 07/03/2024 6:34 PM CDT [facility] BILIRUBIN TOTAL S/P/B 0.2 0.2 - 1.2 MG/DL 07/03/2024 6:34 PM T [facility] Comment: THIS ASSAY IS NOT RECOMMENDED FOR PATIENTS UNDERGOING TREATMENT WITH ELTROMBOPAG DUE TO THE POTENTIAL FOR FALSELY ELEVATED RESULTS. TOTAL PROTEIN S/P/B 6.4 6.4 - 8.2 G/DL 07/03/2024 6:34 PM CDT [facility] ALBUMIN S/P/B 2.3(L) 3.4 - 5.0 G/DL 07/03/2024 6:34 PM CDT [facility] AST 13(L) 15 - 37 U/L 07/03/2024 6:34 PM CDT [facility] ALT 18 14 - 55 U/L 07/03/2024 6:34 PM CDT [facility] ALKALINE PHOSPHATASE S/P/B 87 50 - 136 U/L 07/03/2024 6:34 PM CDT [facility] ANION GAP 8.7 2 - 10 MMOL/L 07/03/2024 6:34 PM CDT [facility] BUN CREATININE RATIO 14.9 6 - 26 07/03/2024 6:34 PM CDT [facility] A/G RATIO 0.6(L) 1.0 - 2.0 RATIO 07/03/2024 6:34 PM CDT [facility] GFR ESTIMATE >90 >90 ML/MIN/1.7 3 M2 07/03/2024 6:34 PM CDT [facility] Comment: NOTE: eGFR is not calculated for patients <18 years of age or gender unknown. This is an estimated GFR calculation using the new CKD EPI creatinine equation without race and so does not require a correction factor for race. This estimated GFR should not be used for calculating drug doses. 07/03/2024 5:5 5 PM CDT Carley Mckeon MD LABORATORY Final Result [facility] [address] [place] [address], [place] [phone] * (ABNORMAL) CBC W/DIFF AUTOMATED (07/03/2024 5:55 PM CDT) WBC 18.27(H) 4.5 - 11.0 x10'3/uL 07/03/2024 6:13 PM CDT [facility] RBC 3.35(L) 4.20 - 5.40 x10'6/uL 07/03/2024 6:13 PM CDT [facility] HGB 10.7(L) 12.0 - 16.0 G/DL 07/03/2024 6:13 PM CDT [facility] HCT 31.6(L) 38.0 - 48.0 % 07/03/2024 6:13 PM CDT [facility] MCV 94.3 81.0 - 99.0 FL 07/03/2024 6:13 PM CDT [facility] MCH 31.9(H) 27.0 - 31.0 PG 07/03/2024 6:13 PM CDT [facility] MCHC 33.9 32.0 - 36.0 G/DL 07/03/2024 6:13 PM CDT [facility] RDW 14.6(H) 11.5 - 14.5 % 07/03/2024 6:13 PM CDT [facility] PLT 248 130 - 400 x10'3/uL 07/03/2024 6:13 PM CDT [facility] MPV 9.8 9.3 - 12.2 FL 07/03/2024 6:13 PM CDT [facility] DIFFERENTIAL TYPE MANUAL DIFFERENTIAL 07/03/2024 6:35 PM CDT [facility] SEG NEUTROPHILS 77 % 6:35 PM CDT [facility] LYMPHOCYTES 13 % 07/03/2024 6:35 PM CDT [facility] MONOCYTES 4 % 07/03/2024 6:35 PM CDT [facility] EOSINOPHILS 2 % 07/03/2024 6:35 PM CDT [facility] METAMYELOCYTES 4 % 07/03/2024 6:35 PM CDT [facility] ABS. NEUTROPHILS 14.07(H) 1.80 - 7.70 x10'3/uL 07/03/2024 6:35 PM CDT [facility] ABS. LYMPHOCYTES 2.38 1.00 - 4.80 x10'3/uL 07/03/2024 6:35 PM CDT [facility] ABS. MONOCYTES 0.73 0.24 - 0.86 x10'3/uL 07/03/2024 6:35 PM CDT [facility] ABS. EOSINOPHILS 0.37(H) 0.04 - 0.36 x10'3/uL 07/03/2024 6:35 PM CDT [facility] ABS. METAMYELOCYTES 0.73(H) 0.00 x10'3/uL 07/03/2024 6:35 PM CDT [facility] RBC MORPHOLOGY RBC MORPHOLOGY APPEARS NORMAL. SLIDE REVIEWED. 07/03/2024 6:35 PM CDT [facility] PLT EST. ADEQUATE 07/03/2024 6:35 PM CDT [facility] 07/03/2024 5:55 PM CDT us Carley Mckeon MD LABORATORY Final Result [facility] [address] [place] [address], from Last 3 Months Insurance [facility] C/O [employer] LILI JOSÉ [id number] Advance Directives * Full Code (Latest Code Status on File) Date Activated Date Inactivated Comments 07/03/2024 5:59 PM 07/04/2024 3:11 PM
--- OUTSIDE RECORDS SUMMARY | 2024-07-27 16:37 | XMS_ITS | Clinical Summary ---
Author Organization [facility] Address [address] [place] [address] Care Team Providers Care Pole Sander Operator Name Role Phone Unavailable Primary Care Provider Unavailabl e Source Comments [facility],non-owned Affiliates and Associated Physician Practices is amultiple site organization consisting of ambulatory clinics and hospital sitesin [place], [place], [place] and [place]. This disclosure is being madepursuant to the Care Everywhere program and may not contain all information available regarding this patient. Last updated 17.[employer] [facility] Allergies Active Allergy Reactions Criticality Noted Date Comments Latex Rash Medium 09/14/2017 Medications * This document contains information received from the source organization and may not represent a complete record from that organization. * Be aware that medications may not be up to date on this document. Alwaysverify current medications with the patient. insulin NPH (HUMULIN N; NOVOLIN N) vial [...] Years Used Date Smoking Tobacco: Never Assessed Comments No Sex and Gender Information Value Date Recorded Sex Assigned at Female 2020 2:37 PM CDT Legal Sex Female 10:24 AM [employer] Gender Identity Female 2020 2:37 PM CDT [...] Done Comments LIPID TESTING 1982 MAMMOGRAM 1982 HIV SCREENING 1997 HEPATITIS C SCREENING 12/24/2000 DTAP/TDAP/TD VACCINES (1 - Tdap) 2001 HEPATITIS B VACCINE (1 of 3 - 19+ 3-dose series) 2001 COVID-19 VACCINE ( - 2023-2 5 season) 2023 DEPRESSION SCREENING 04/02/2024 INFLUENZA VACCINE (Season Ended) 2024 02/09/2023, 12/15/2020 ZOSTER VACCINE (1 of 2) 2032 HIB VACCINE Aged Out No longer eligi ble based on patient's age to complete this topic HPV VACCINE Aged Out No longer eligi ble based on patient's age to complete this topic MENINGOCOCCAL (Group B) VACCINE SHARED DECISION-MAKING Aged Out No longer eligible based on patient's age to complete this topic MENINGOCOCCAL GROUPS A/C/Y/W VACCINE Aged Out No longer eligible b ased on patient's age to complete this topic PNEUMOCOCCAL VACCINE Aged Out No long er eligible based on patient's age to complete this topic Insurance [facility] MEDICAID - OUT OF STATE
--- OUTSIDE RECORDS SUMMARY | 2024-07-27 16:38 | XMS_ITS | Data Portability ---
Author Organization [employer] , [facility] Address [address] [place] [address] Assessment No assessment recorded. Plan of Treatment Reminders Order Date Submit Date Provider Last Modified By Organization Details Last Modified Time Details Appointments NURSE 2024 10:45A M NURSE [place] Not available Not available Not available OB SONOGRA M 30 2024 11:15A M Ultrasound [place] Not available Not available Not available OB RETURN EST 2024 11:45A M MATT ANN Not available Not available Not available Lab urinaly sis, dipstic k 2024 025 [email or web address] [facility], [address] [place], [address], 07/17/2024 15:38:04 strepto coccus group B, culture , unspeci fied specime n 2024 025 [employer] [facility], [address] [facility], [address], [address], 07/18/2024 10:35:38 culture , urine 2024 025 [employer] [facility], [address] [place], [address], 07/15/2024 20:13:21 drug of abuse panel, urine 2024 025 [facility], [address] [place] [address], [address], 07/05/2024 10:43:06 drug screen, urine 2024 025 [facility], [address] [facility], [place], [address], 07/03/2024 21:14:19 Referral None recorde d. Procedures None recorde d. Surgeries None recorde d. Imaging US, obstetr ic, biophys ical profile + non-str ess test 2024 025 [email or web address] [facility] [place], [address], [place], [address], 07/17/2024 16:06:54 US, obstetr ic, follow- up 2024 025 ARMANDO [facility] [place], [address], [place], [address], 07/15/2024 08:42:53 US, obstetr ic, biophys ical profile 2024 025 [email or web address] [facility], [address], [place], [address], 07/17/2024 11:56:29 US, obstetr ic, biophys ical profile 2024 025 [email or web address] [facility], [address], [place], [address], 07/16/2024 13:43:52 US, obstetr ic, follow- up 2024 025 [facility] [place], [address], [place], [address], 07/03/2024 18:19:29 US, obstetr ic, biophys ical profile 2024 025 ARMANDO [facility], [address], [place], [address], 07/03/2024 15:19:47 Medication Orders None recorde d. Patient TargetsNo targets recorded. Patient InstructionsNo instructions recorded. Reason for Referral None Reported. Results Created Date Observation Date Name Description Value Unit Range Abnormal Flag Note LastModifiedBy Organization Detail LastModifiedTime 06/19/1906/19/2024 HEMOG LOBIN A1C hemoglobin A1C 5.8 % <5.7 high The refer ence range for HbA1c is indic ated in the table below . Sugge sted Diagn osis =6.5% Consi stent with diabe abdirahman 5.7 6.4% Consi stent with incre ased risk for diabe abdirahman (pred iabet ic) <5.7% Consi stent with the absen ce of diabe abdirahman Not Available [facility] [address] [place] [address], [address], 06/19/2024 11:51:35 06/19/19 25 06/19/2024 COMPR EHENS LISA METAB OLIC PANEL sodium 141 mmol/ L 136 - 145 normal Not Available [address], [address], 06/19/2024 12:02:00 06/19/19 25 06/19/2024 COMPR EHENS LISA METAB OLIC PANEL potassium 3.9 mmol/ L 3.5 - 5.1 normal Not Available [facility] [address], [address], 06/19/2024 12:02:00 06/19/19 25 06/19/2024 COMPR EHENS LISA METAB OLIC PANEL chloride 102 mmol/ L 98 - 107 normal Not Available [facility], [address], 06/19/2024 12:02:00 06/19/19 25 06/19/2024 COMPR EHENS LISA METAB OLIC PANEL glucose 194 mg/dL 74 - 106 high Not Available [facility] [address] [place] [address], [address], 06/19/2024 12:02:00 06/19/19 25 06/19/2024 COMPR EHENS LISA METAB OLIC PANEL carbon dioxide 27 mmol/ L 20 - 32 normal Not Available [address], [address], 06/19/2024 12:02:00 06/19/19 25 06/19/2024 COMPR EHENS LISA METAB OLIC PANEL calcium 10.1 mg/dL 8.5 - 10.1 normal Not Available [address], [address], 06/19/2024 12:02:00 06/19/19 25 06/19/2024 COMPR EHENS LISA METAB OLIC PANEL creatinine 0.56 mg/dL 0.60 - 1.00 low Not Available [address], [address], 06/19/2024 12:02:00 06/19/19 25 06/19/2024 COMPR EHENS LISA METAB OLIC PANEL eGFR 118 mL/mi n/1.7 3m2 >60 normal The eGFR is based on the CKD-E PI 2020 josé miguel zavala. To calcu late the new eGFR from a previ ous Creat inine or Cysta gaston C resul t, go to https ://kiana hagen.judy jensen/claudia goncalves s/james qi/gf r_cal culat or Not Available [address], [address], 06/19/2024 12:02:00 06/19/19 25 06/19/2024 COMPR EHENS LISA METAB OLIC PANEL AST 17 U/L 15 - 37 normal Not Available [address], [address], 06/19/2024 12:02:00 06/19/19 25 06/19/2024 COMPR EHENS LISA METAB OLIC PANEL ALT 27 U/L 14 - 59 normal Not Available [address], [address], 06/19/2024 12:02:00 06/19/19 25 06/19/2024 COMPR EHENS LISA METAB OLIC PANEL alk phos 90 U/L 46 - 116 normal Not Available [address], [address], 06/19/2024 12:02:00 06/19/19 25 06/19/2024 COMPR EHENS LISA METAB OLIC PANEL albumin 2.6 g/dL 3.4 - 5.0 low Not Available [address], [address], 06/19/2024 12:02:00 06/19/19 25 06/19/2024 COMPR EHENS LISA METAB OLIC PANEL protein, total 6.3 g/dL 6.4 - 8.2 low Not Available [address], [address], 06/19/2024 12:02:00 06/19/19 25 06/19/2024 COMPR EHENS LISA METAB OLIC PANEL bilirubin, total 0.1 mg/dL 0.2 - 1.0 low Not Available [address], [address], 06/19/2024 12:02:00 06/19/19 25 06/19/2024 COMPR EHENS LISA METAB OLIC PANEL urea nitrogen (BUN) 7 mg/dL 7 - 18 low Not Available [address], [address], 06/19/2024 12:02:00 06/19/19 25 06/19/2024 URIC ACID uric acid 3.8 mg/dL 2.6 - 6.0 normal Not Available [address], [address], 06/19/2024 12:07:01 06/19/19 25 06/19/2024 DERICK THOMAS URINE creatinine, urine 158 mg/dL 20 - 275 normal Not Available [address], [address], 06/19/2024 12:17:33 06/19/19 25 06/19/2024 DRUG ABUSE PANEL 7 W/CON FIRM amphetamines Negati ve negati ve normal Not Available [facility] [address] [place], [address], 06/19/2024 12:53:35 06/19/19 25 06/19/2024 DRUG ABUSE PANEL 7 W/CON FIRM barbiturates Negati ve negati ve normal Not Available [facility] [address] [place], [address], 06/19/2024 12:53:35 06/19/19 25 06/19/2024 DRUG ABUSE PANEL 7 W/CON FIRM benzodiazepi shauna Negati ve negati ve normal Not Available [facility] [address] [place], [address], 06/19/2024 12:53:35 06/19/19 25 06/19/2024 DRUG ABUSE PANEL 7 W/CON FIRM cocaine metabolites Negati ve negati ve normal Not Available [facility] [address] [place], [address], 06/19/2024 12:53:35 06/19/19 25 06/19/2024 DRUG ABUSE PANEL 7 W/CON FIRM cannabinoids Presum ptive Positi ve negati ve abnormal Not Available [facility] [address] [place], [address], 06/19/2024 12:53:35 06/19/19 25 06/19/2024 DRUG ABUSE PANEL 7 W/CON FIRM methadone Negati ve negati ve normal Not Available [facility] [address] [place], [address], 06/19/2024 12:53:35 06/19/19 25 06/19/2024 DRUG ABUSE PANEL 7 W/CON FIRM opiates Negati ve negati ve normal Not Available [facility] [address] [place], [address], 06/19/2024 12:53:35 06/19/19 25 06/19/2024 DRUG ABUSE PANEL 7 W/CON FIRM creatinine, urine 158 mg/dL 20 - 275 normal Not Available [address], [address], 06/19/2024 12:53:35 06/19/19 25 06/19/2024 OB PANEL - STD BLOOD WORK hep BS Ag Non-Re active non-re active normal Not Available [address], [address], 06/19/2024 14:16:40 06/19/19 25 06/19/2024 OB PANEL - STD BLOOD WORK hep C Ab Non-Re active non-re active normal Not Available [address], [address], 06/19/2024 14:16:40 06/19/19 25 06/19/2024 OB PANEL - STD BLOOD WORK HIV 1/2 Ag/Ab Non-Re active non-re active normal Not Available [address], [address], 06/19/2024 14:16:40 06/19/19 25 06/19/2024 OB PANEL - STD BLOOD WORK syphilis Ab Non-Re active non-re active normal Not Available [address], [address], 06/19/2024 14:16:40 06/19/19 25 06/19/2024 OB PANEL - STD BLOOD WORK rubella Ab IgG 13.1 IU/mL normal INTER PRETI VE INFOR MATIO N: Rubel la Antib nancy, IgG. < 5.0 IU/mL ..... ..... . Not consi stent with immun ity 5.0 - 9.9 IU/mL ..... . Equiv ocal: Indet ermin ate-R epeat testi ng in 10-14 days may be helpf ul. > or = 10.0 IU/mL ... Consi stent with immun ity The prese nce of Rubel la IgG antib nancy sugge st respo nse to immun izati on or prior /curr ent expos ure to the Rubel la virus . Not Available [facility] [address] [facility], [place], [address], 06/19/2024 14:16:40 06/19/19 25 06/19/2024 CT/NG chlamydia trachomatis CT neg negati ve normal This repor t is inten ded for us in clini [place] monit oring and manag ement of patie nts. It is not inten ded for use in medic al-le gal appli catio n. Not Available [facility] [address] [facility], [place], [address], 06/19/2024 14:27:23 06/19/19 25 06/19/2024 CT/NG neisseria gonorrhoeae GC neg negati ve normal This repor t is inten ded for us in clini [place]dalena monit oring and manag ement of patie nts. It is not inten ded for use in medic al-le gal appli catio n. Not Available [facility] [address] [facility], [place], [address], 06/19/2024 14:27:23 06/19/19 25 06/19/2024 CBC (INCL UDES DIFF/ PLT) WBC 18.7 thous and/u L 4.0 - 9.8 high Not Available [facility] [address] [place], [address], 06/20/2024 12:07:42 06/19/19 25 06/19/2024 CBC (INCL UDES DIFF/ PLT) RBC 3.6 jenn on/uL 3.9 - 4.9 low Not Available [facility] [address] [place], [address], 06/20/2024 12:07:42 06/19/19 25 06/19/2024 CBC (INCL UDES DIFF/ PLT) hemoglobin 11.6 g/dL 11.8 - 14.8 low Not Available [facility] [address] [place], [address], 06/20/2024 12:07:42 06/19/19 25 06/19/2024 CBC (INCL UDES DIFF/ PLT) hematocrit 35.2 % 35.5 - 44.0 low Not Available [address], [address], 06/20/2024 12:07:42 06/19/19 25 06/19/2024 CBC (INCL UDES DIFF/ PLT) MCV 96.7 fL 82.0 - 99.0 normal Not Available [address], [address], 06/20/2024 12:07:42 06/19/19 25 06/19/2024 CBC (INCL UDES DIFF/ PLT) MCH 31.9 pg 27.2 - 32.6 normal Not Available [address], [address], 06/20/2024 12:07:42 06/19/19 25 06/19/2024 CBC (INCL UDES DIFF/ PLT) MCHC 33.0 g/dL 31.5 - 35.5 normal Not Available [address], [address], 06/20/2024 12:07:42 06/19/19 25 06/19/2024 CBC (INCL UDES DIFF/ PLT) RDW-CV 14.3 % 11.5 - 14.5 normal Not Available [address], [address], 06/20/2024 12:07:42 06/19/19 25 06/19/2024 CBC (INCL UDES DIFF/ PLT) platelet 261 thous and/u L 140 - 350 normal Not Available [address], [address], 06/20/2024 12:07:42 06/19/19 25 06/19/2024 CBC (INCL UDES DIFF/ PLT) MPV 11.2 fL 9.3 - 12.4 normal Not Available [address], [address], 06/20/2024 12:07:42 06/19/19 25 06/20/2024 MANUA L DIFFE RENTI AL %neutrophil 72 % 34 - 71 high Not Available [facility] [address] [place], [address], 06/20/2024 12:07:43 06/19/19 25 06/20/2024 MANUA L DIFFE RENTI AL %lymphocyte 13 % 19 - 52 low Not Available [facility] [address] [place] [address], [address], 06/20/2024 12:07:43 06/19/19 25 06/20/2024 MANUA L DIFFE RENTI AL %monocyte 8 % 5 - 13 normal Not Available [facility] [address] [place] [address], [address], 06/20/2024 12:07:43 06/19/19 25 06/20/2024 MANUA L DIFFE RENTI AL %eosinophil 2 % 1 - 6 normal Not Available [facility] [address] [place], [address], 06/20/2024 12:07:43 06/19/19 25 06/20/2024 MANUA L DIFFE RENTI AL %basophil 1 % 0 - 1 normal Not Available [facility] [address] [place] [address], [address], 06/20/2024 12:07:43 06/19/19 25 06/20/2024 MANUA L DIFFE RENTI AL %metamylocyt e 4 % Not Available [facility] [address] [place], [address], 06/20/2024 12:07:43 06/19/19 25 06/20/2024 MANUA L DIFFE RENTI AL platelet estimate Consis tent with count Not Available [facility] [address] [place], [address], 06/20/2024 12:07:43 06/19/19 25 06/20/2024 MANUA L DIFFE RENTI AL RBC morphology Normal RBC morpho logy observ ed on periph eral smear. Jessy l RBC morph ology obser tai on perip heral smear . Not Available [facility] [address] [place], [address], 06/20/2024 12:07:43 06/19/1906/24/2024 VARIC SUKUMAR ZOSTE R VIRUS ANTIB NANCY (IGG) varicella zoster virus antibody (IgG) 2.51 S/co normal Signa l to Cut-o ff S/CO Inter preta tion ----- ---- ----- ----- ----- ----- -- <1.00 Negat lisa - Antib nancy not detec cheyanne > or = 1.00 Posit lisa - Antib nancy detec cheyanne A posit lisa resul t indic ates that the patie nt has antib nancy to VZV but does not diffe renti ate betwe en an activ e or past infec tion. The clini [place]dal[place] diagn osis must be inter prete d in conju nctio n with the clini [place]dal[place] signs and sympt oms of the patie nt. This assay relia darwin measu res immun ity due to previ ous infec tion but may not be sensi tive enoug h to detec t antib odies induc ed by vacci natio n. Thus, a negat lisa resul t in a vacci nated indiv idual does not neces saril y indic ate susce ptibi lity to VZV infec tion. A more sensi tive test for vacci natio n-ind uced immun ity is Varic sukumar Zoste r Virus Antib nancy Immun ity Scree n, ACIF. Not Available [facility] [address] [place], [address], 06/24/2024 17:08:22 06/19/19 25 06/24/2024 HEMOG LOBIN OPATH Y EVALU ATION red blood cell count TNP TEST NOT PERFO RMED A singl e speci men was submi tted and canno t be share d for multi ple tests . Not Available [facility] [place] [address] [place], [address], 06/24/2024 17:08:22 06/19/1906/24/2024 HEMOG LOBIN OPATH Y EVALU ATION hemoglobin A TNP TEST NOT PERFO RMED A singl e speci men was submi tted and canno t be share d for multi ple tests . Not Available [facility] [place] [address] [address] [place], [address], 06/24/2024 17:08:22 06/19/1906/24/2024 EXTRA SPECI MEN extra tube received An extra speci men was recei tai with no test reque sted. The speci men will be maint ained in stora ge in case addit ional testi ng is neede d. Pleas e call the jasien t servi ce depar tment for fur er martha edleon . Not Available [facility] [place] [address] [place], [address], 06/24/2024 17:08:23 06/19/1906/24/2024 EXTRA SPECI MEN specimen type received Serum Separa tor (SST); ; Not Available [facility] [address] [place], [address], 06/24/2024 17:08:23 06/19/1906/24/2024 MEASL ES AB (IGG) , IMMUN E STATU S measles Ab (IgG), immune status <13.50 AU/mL low AU/mL Inter preta tion ----- ----- ----- ---- <13.5 0 Not consi stent with immun ity 13.50 -16.4 9 Equiv ocal >16.4 9 Consi stent with immun ity The prese nce of measl es IgG sugge sts immun izati on or past or curre nt infec tion with measl es virus . For addit ional infor matio n, pleas e refer to http: //[facility] khalif.Que stDia gnost ics.c om/fa q/FAQ 162 (This link is being provi ded for infor matio nal/ educa loni l purpo ses only. ) Not Available [place] [address] [place], [address], 06/24/2024 17:08:24 06/19/19 25 06/24/2024 ANTIB NANCY SCREE N, RBC W/REF L ID, TITER AND AG antibody screen, RBC w/refl id, titer and Ag NO ANTIBO DIES DETECT ED normal Refer ence range No antib odies detec cheyanne This assay is a scree josie test for the detec tion of red blood cell antib odies . The test is not to be used for pretr ansfu joanie scree josie or for the medic al manag ement of an alloi mmuni zed pregn leon. Not Available [address] [address] [address] [place], [address], 06/24/2024 17:08:24 06/19/19 25 06/24/2024 ABO GROUP AND RH TYPE ABO group O Not Available [place] [address] [place], [address], 06/24/2024 17:08:25 06/19/19 25 06/24/2024 ABO GROUP AND RH TYPE Rh type RH(D) POSITI VE For addit ional infor yolanda [place] e refer to http: //[facility] city[facility]ffery cuadra.Daniel stDia gnost ics.c om/fa q/FAQ 111 (This link is being provi ded for infor matio nal/ educa loni l purpo ses only. ) Not Available [place] [address] [place], [address], 06/24/2024 17:08:25 06/19/19 25 06/24/2024 CULTU RE, URINE , ROUTI NE culture, urine, routine SEE NOTE CULTU RE, URINE , ROUTI NE Micro Numbe r: [id number] Test Statu s: Final Speci men Sourc e: Urine Speci men Quali ty: Adequ ate Resul t: No Growt h Not Available [facility] [address] [place], [address], 06/24/2024 17:08:26 07/02/19 25 07/02/2024 DRUG ABUSE PANEL 7 W/CON FIRM amphetamines Negati ve negati ve normal Not Available [facility] [address] [place], [address], 07/02/2024 14:53:04 07/02/19 25 07/02/2024 DRUG ABUSE PANEL 7 W/CON FIRM barbiturates Negati ve negati ve normal Not Available [facility] [address] [place], [address], 07/02/2024 14:53:04 07/02/19 25 07/02/2024 DRUG ABUSE PANEL 7 W/CON FIRM benzodiazepi shauna Negati ve negati ve normal Not Available [facility] [address] [place], [address], 07/02/2024 14:53:04 07/02/19 25 07/02/2024 DRUG ABUSE PANEL 7 W/CON FIRM cocaine metabolites Negati ve negati ve normal Not Available [facility] [address] [place], [address], 07/02/2024 14:53:04 07/02/19 25 07/02/2024 DRUG ABUSE PANEL 7 W/CON FIRM cannabinoids Presum ptive Positi ve negati ve abnormal Not Available [facility] [address] [place], [address], 07/02/2024 14:53:04 07/02/19 25 07/02/2024 DRUG ABUSE PANEL 7 W/CON FIRM methadone Negati ve negati ve normal Not Available [facility] [address] [place], [address], 07/02/2024 14:53:04 07/02/19 25 07/02/2024 DRUG ABUSE PANEL 7 W/CON FIRM opiates Negati ve negati ve normal Not Available [facility] [address] [place], [address], 07/02/2024 14:53:04 07/02/19 25 07/02/2024 DRUG ABUSE PANEL 7 W/CON FIRM creatinine, urine 194 mg/dL 20 - 275 normal Not Available [facility] [address] [place], [address], 07/02/2024 14:53:04 07/04/19 25 07/03/2024 POC GLUCO SE POC glucose 118 mg/dL 70-99 high Not Available [facility] (Lab) [place], [address], 07/03/2024 19:28:02 07/04/19 25 07/03/2024 COMPR EHENS LISA METAB OLIC PANEL glucose 124 mg/dL 70-99 high Not Available [facility] (Lab) [place], [address], 07/03/2024 19:34:16 07/04/19 25 07/03/2024 COMPR EHENS LISA METAB OLIC PANEL BUN 7 mg/dL 7-18 Not Available [facility] (Lab) [place], [address], 07/03/2024 19:34:16 07/04/19 25 07/03/2024 COMPR EHENS LISA METAB OLIC PANEL creatinine 0.47 mg/dL 0.55-1 .02 low Not Available [facility] (Lab) [place], [address], 07/03/2024 19:34:16 07/04/19 25 07/03/2024 COMPR EHENS LISA METAB OLIC PANEL sodium 135 mmol/ L 136-14 5 low Not Available [facility] (Lab) [place], [address], 07/03/2024 19:34:16 07/04/1907/03/2024 COMPR EHENS LISA METAB OLIC PANEL potassium 3.5 mmol/ L 3.5-5. 1 Not Available [facility] (Lab) [place], [address], 07/03/2024 19:34:16 07/04/19 25 07/03/2024 COMPR EHENS LISA METAB OLIC PANEL chloride 104 mmol/ L 97-115 Not Available [facility] ([facility]) [address], [place], [address], 07/03/2024 19:34:16 07/04/19 25 07/03/2024 COMPR EHENS LISA METAB OLIC PANEL total CO2 22.3 mmol/ L 21-32 Not Available [facility] (Lab) [place], [address], 07/03/2024 19:34:16 07/04/19 25 07/03/2024 COMPR EHENS LISA METAB OLIC PANEL calcium 8.9 mg/dL 8.5-10 .1 Not Available [facility] (Lab) [place], [address], 07/03/2024 19:34:16 07/04/19 25 07/03/2024 COMPR EHENS LISA METAB OLIC PANEL total bilirubin 0.2 mg/dL 0.2-1. 2 THIS ASSAY IS NOT RECOM CHLOE D FOR PATIE NTS UNDER GOING TREAT MENT WITH ELTRO MBOPA G DUE TO THE POTEN TIAL FOR FALSE LY ELEVA CHEYANNE RESUL TS. Not Available [facility] (Lab) [place], [address], 07/03/2024 19:34:16 07/04/19 25 07/03/2024 COMPR EHENS LISA METAB OLIC PANEL total protein 6.4 g/dL 6.4-8. 2 Not Available [facility] ([facility] [employer] [address] [facility], [place], [address], 07/03/2024 19:34:16 07/04/19 25 07/03/2024 COMPR EHENS LISA METAB OLIC PANEL albumin 2.3 g/dL 3.4-5. 0 low Not Available [facility] ([facility] [employer] [address] [facility], [place], [address], 07/03/2024 19:34:16 07/04/19 25 07/03/2024 COMPR EHENS LISA METAB OLIC PANEL AST 13 U/L 15-37 low Not Available [facility] ([facility] [address] [employer] [address] [facility], [place], [address], 07/03/2024 19:34:16 07/04/19 25 07/03/2024 COMPR EHENS LISA METAB OLIC PANEL ALT 18 U/L 14-55 Not Available [facility] ([facility] [address] [employer] [address] [facility], [place], [address], 07/03/2024 19:34:16 07/04/19 25 07/03/2024 COMPR EHENS LISA METAB OLIC PANEL alk phosphatase 87 U/L 50-136 Not Available [facility] ([facility]) [address] [employer] [address] [facility], [place], [address], 07/03/2024 19:34:16 07/04/19 25 07/03/2024 COMPR EHENS LISA METAB OLIC PANEL anion gap 8.7 mmol/ L 2-10 Not Available [facility] ([facility] [employer] [address] [facility], [place], [address], 07/03/2024 19:34:16 07/04/19 25 07/03/2024 COMPR EHENS LISA METAB OLIC PANEL BUN creatinine ratio 14.9 6-26 Not Available [facility] (Lab) [place], [address], 07/03/2024 19:34:16 07/04/19 25 07/03/2024 COMPR EHENS LISA METAB OLIC PANEL A:g ratio 0.6 ratio 1.0-2. 0 low Not Available [facility] (Lab) [place], [address], 07/03/2024 19:34:16 07/04/19 25 07/03/2024 COMPR EHENS LISA METAB OLIC PANEL est GFR >90 mL/mi n/1.7 3_M2 >90 NOTE: eGFR is not calcu lated for patie nts <18 years of age or gende r unkno wn. This is an estim ated GFR calcu latio n using the new CKD EPI creat inine equat ion witho ut race and so does not requi re a corre ction facto r for race. This estim ated GFR shoul d not be used for calcu latin g drug doses . Not Available [facility] (Lab) [place], [address], 07/03/2024 19:34:16 07/04/1907/03/2024 CBC WITH DIFF WBC 18.27 x10'3 /uL 4.5-11 .0 high Not Available [facility] (Lab) [place], [address], 07/03/2024 19:36:08 07/04/19 25 07/03/2024 CBC WITH DIFF RBC 3.35 x10'6 /uL 4.20-5 .40 low Not Available [facility] ([facility]) [address], [place], [address], 07/03/2024 19:36:08 07/04/1907/03/2024 CBC WITH DIFF hemoglobin 10.7 g/dL 12.0-1 6.0 low Not Available [facility] (Lab) [address], [place], [address], 07/03/2024 19:36:08 07/04/1907/03/2024 CBC WITH DIFF hematocrit 31.6 % 38.0-4 8.0 low Not Available [facility] (Lab) [address], [place], [address], 07/03/2024 19:36:08 07/04/1907/03/2024 CBC WITH DIFF MCV 94.3 fL 81.0-9 9.0 Not Available [facility] (Lab) [address], [place], [address], 07/03/2024 19:36:08 07/04/1907/03/2024 CBC WITH DIFF MCH 31.9 pg 27.0-3 1.0 high Not Available [facility] (Lab) [address] [facility], [place], [address], 07/03/2024 19:36:08 07/04/1907/03/2024 CBC WITH DIFF MCHC 33.9 g/dL 32.0-3 6.0 Not Available [facility] (Lab) [address], [place], [address], 07/03/2024 19:36:08 07/04/19 25 07/03/2024 CBC WITH DIFF RDW 14.6 % 11.5-1 4.5 high Not Available [facility] (Lab) [address] [facility], [place], [address], 07/03/2024 19:36:08 07/04/19 25 07/03/2024 CBC WITH DIFF platelet count 248 x10'3 /uL 130-40 0 Not Available [facility] (Lab) [address] [facility], [place], [address], 07/03/2024 19:36:08 07/04/19 25 07/03/2024 CBC WITH DIFF MPV 9.8 fL 9.3-12 .2 Not Available [facility] (Lab) [address], [place], [address], 07/03/2024 19:36:08 07/04/19 25 07/03/2024 CBC WITH DIFF diff type MANUAL DIFFER ENTIAL Not Available [facility] (Lab) [address] [facility], [place], [address], 07/03/2024 19:36:08 07/04/19 25 07/03/2024 CBC WITH DIFF seg neutrophils 77 % Not Available [facility] (Lab) [address], [place], [address], 07/03/2024 19:36:08 07/04/19 25 07/03/2024 CBC WITH DIFF lymphocytes 13 % Not Available [facility] (Lab) [address], [place], [address], 07/03/2024 19:36:08 07/04/19 25 07/03/2024 CBC WITH DIFF monocytes 4 % Not Available [facility] (Lab) [address], [place], [address], 07/03/2024 19:36:08 07/04/19 25 07/03/2024 CBC WITH DIFF eosinophils 2 % Not Available [facility] (Lab) [address] [facility], [place], [address], 07/03/2024 19:36:08 07/04/1907/03/2024 CBC WITH DIFF metamyelocyt es 4 % Not Available [facility] (Lab) [address] [facility], [place], [address], 07/03/2024 19:36:08 07/04/19 25 07/03/2024 CBC WITH DIFF abs neutrophils 14.07 x10'3 /uL 1.80-7 .70 high Not Available [facility] (Lab) [address] [facility], [place], [address], 07/03/2024 19:36:08 07/04/1907/03/2024 CBC WITH DIFF abs lymphocytes 2.38 x10'3 /uL 1.00-4 .80 Not Available [facility] (Lab) [address] [facility], [place], [address], 07/03/2024 19:36:08 07/04/1907/03/2024 CBC WITH DIFF abs monocytes 0.73 x10'3 /uL 0.24-0 .86 Not Available [facility] (Lab) [address] [facility], [place], [address], 07/03/2024 19:36:08 07/04/1907/03/2024 CBC WITH DIFF abs eosinophils 0.37 x10'3 /uL 0.04-0 .36 high Not Available [facility] (Lab) [address] [facility], [place], [address], 07/03/2024 19:36:08 07/04/19 25 07/03/2024 CBC WITH DIFF abs. metamyelocyt es 0.73 x10'3 /uL 0.00 high Not Available [facility] (Lab) [address] [place], [address], 07/03/2024 19:36:08 07/04/19 25 07/03/2024 CBC WITH DIFF RBC morphology RBC MORPHO LOGY APPEAR S NORMAL . SLIDE REVIEW ED. Not Available [facility] (Lab) [address] [place], [address], 07/03/2024 19:36:08 07/04/19 25 07/03/2024 CBC WITH DIFF platelet estimate ADEQUA TE Not Available [facility] (Lab) [address] [place], [address], 07/03/2024 19:36:08 07/04/19 25 07/03/2024 HEMOG LOBIN A1C hemoglobin A1C 5.7 % <5.7 high ADA GUIDE LINES 2010 5.7 TO 6.4% INCRE ASED RISK OF DIABE ABDIRAHMAN > OR = 6.5% CONSI STENT WITH DIABE ABDIRAHMAN Not Available [facility] (Lab) [place], [address], 07/03/2024 19:53:07 07/04/19 25 07/03/2024 HEMOG LOBIN A1C estimated average glucose, magdalena 117 mg/dL Not Available [facility] (Lab) [place], [address], 07/03/2024 19:53:07 07/04/19 25 07/03/2024 UA REFLE X TO MICRO specimen type URINE CLEAN CATCH Not Available [facility] (Lab) [place], [address], 07/03/2024 20:52:18 07/04/19 25 07/03/2024 UA REFLE X TO MICRO color YELLOW Not Available [facility] (Lab) [address] [facility], [place], [address], 07/03/2024 20:52:18 07/04/19 25 07/03/2024 UA REFLE X TO MICRO clarity TURBID Not Available [facility] (Lab) [place], [address], 07/03/2024 20:52:18 07/04/19 25 07/03/2024 UA REFLE X TO MICRO specific gravity 1.025 1.001- 1.030 Not Available [facility] (Lab) [address] [facility], [place], [address], 07/03/2024 20:52:18 07/04/19 25 07/03/2024 UA REFLE X TO MICRO pH, urine 6.0 5.0-9. 0 Not Available [facility] (Lab) [address] [facility], [place], [address], 07/03/2024 20:52:18 07/04/19 25 07/03/2024 UA REFLE X TO MICRO leukocytes NEGATI VE neg Not Available [facility] (Lab) [place], [address], 07/03/2024 20:52:18 07/04/19 25 07/03/2024 UA REFLE X TO MICRO nitrite NEGATI VE neg Not Available [facility] (Lab) [place], [address], 07/03/2024 20:52:18 07/04/19 25 07/03/2024 UA REFLE X TO MICRO protein 10 mg/dL <30 Not Available [facility] (Lab) [place], [address], 07/03/2024 20:52:18 07/04/19 25 07/03/2024 UA REFLE X TO MICRO glucose 200 mg/dL norm abnormal Not Available [facility] (Lab) [place], [address], 07/03/2024 20:52:18 07/04/19 25 07/03/2024 UA REFLE X TO MICRO ketone NEGATI VE mg/dL neg Not Available [facility] (Lab) [place], [address], 07/03/2024 20:52:18 07/04/19 25 07/03/2024 UA REFLE X TO MICRO urobilinogen NORMAL mg/dL norm Not Available [facility] (Lab) [place], [address], 07/03/2024 20:52:18 07/04/19 25 07/03/2024 UA REFLE X TO MICRO bilirubin NEGATI VE mg/dL neg Not Available [facility] (Lab) [place], [address], 07/03/2024 20:52:18 07/04/19 25 07/03/2024 UA REFLE X TO MICRO blood NEGATI VE neg Not Available [facility] (Lab) [place], [address], 07/03/2024 20:52:18 07/04/19 25 07/03/2024 DRUGS OF ABUSE PANEL , URINE amphetamines , urine NEGATI VE neg Not Available [facility] (Lab) [place], [address], 07/03/2024 21:14:19 07/04/19 25 07/03/2024 DRUGS OF ABUSE PANEL , URINE barbituates, urine NEGATI VE neg Not Available [facility] (Lab) [place], [address], 07/03/2024 21:14:19 07/04/19 25 07/03/2024 DRUGS OF ABUSE PANEL , URINE benzodiazapi shauna, urine NEGATI VE neg Not Available [facility] (Lab) [place], [address], 07/03/2024 21:14:19 07/04/1907/03/2024 DRUGS OF ABUSE PANEL , URINE cannabinoids /THC, urine POSITI VE neg abnormal Not Available [facility] (Lab) [place], [address], 07/03/2024 21:14:19 07/04/19 25 07/03/2024 DRUGS OF ABUSE PANEL , URINE cocaine, urine NEGATI VE neg Not Available [facility] (Lab) [place], [address], 07/03/2024 21:14:19 07/04/19 25 07/03/2024 DRUGS OF ABUSE PANEL , URINE methadone, urine NEGATI VE neg Not Available [facility] (Lab) [place], [address], 07/03/2024 21:14:19 07/04/19 25 07/03/2024 DRUGS OF ABUSE PANEL , URINE opiates, urine NEGATI VE neg Not Available [facility] (Lab) [place], [address], 07/03/2024 21:14:19 07/04/19 25 07/03/2024 DRUGS OF ABUSE PANEL , URINE phencyclidin es, urine NEGATI VE neg NOTE: RESUL TS OF THIS DRUG SCREE N SHOUL D BE USED FOR MEDIC AL PURPO SES ONLY AND NOT FOR LEGAL OR EMPLO YMENT PURPO SES. POSIT LISA RESUL TS ARE NOT CONFI RMED. MEDIC ATION S CONTA INING EPHED RINE MAY CAUSE FALSE POSIT LISA AMPHE TAMIN E CALL [phone], LAB, TO REQUE ST CONFI RMATI ON TESTI NG. IF CREAT ININE IS <40 mg/dL . RECOL LECTI ON IS SUGGE STED. AMPHE TAMIN E- 500 NG/ML MARINA TURAT E- 200 NG/ML BENZO DIAZE PINES - 200 NG/ML THC- 50 NG/ML COCAI NE- 150 NG/ML METHA DONE- 300 NG/ML OPIAT E- 300 MG/ML PCP- 25 NG/ML Not Available [facility] (Lab) [place], [address], 07/03/2024 21:14:19 07/04/19 25 07/03/2024 DRUGS OF ABUSE PANEL , URINE creatinine, urine 164.0 mg/dL 28-217 Not Available [facility] (Lab) [place], [address], 07/03/2024 21:14:19 07/04/19 25 07/03/2024 CREAT ININE , URINE creatinine, urine 163.0 mg/dL 28-217 Not Available [facility] (Lab) [place], [address], 07/03/2024 21:14:20 07/04/19 25 07/03/2024 TOTAL PROTE IN, URINE total protein, urine 23.7 mg/dL <10 high Not Available [facility] (Lab) [place], [address], 07/03/2024 21:14:21 07/04/19 25 07/03/2024 POC GLUCO SE POC glucose 142 mg/dL 70-99 high Not Available [facility] (Lab) One [facility], [place], [address], 07/03/2024 21:39:36 07/04/19 25 07/05/2024 DRUG ABUSE PANEL 7 W/CON FIRM amphetamines Negati ve negati ve normal Not Available [facility] [address] [place], [address], 07/05/2024 10:43:06 07/04/19 25 07/05/2024 DRUG ABUSE PANEL 7 W/CON FIRM barbiturates Negati ve negati ve normal Not Available [facility] [address] [place], [address], 07/05/2024 10:43:06 07/04/19 25 07/05/2024 DRUG ABUSE PANEL 7 W/CON FIRM benzodiazepi shauna Negati ve negati ve normal Not Available [facility] [address] [place], [address], 07/05/2024 10:43:06 07/04/19 25 07/05/2024 DRUG ABUSE PANEL 7 W/CON FIRM cocaine metabolites Negati ve negati ve normal Not Available [facility] [address] [place], [address], 07/05/2024 10:43:06 07/04/19 25 07/05/2024 DRUG ABUSE PANEL 7 W/CON FIRM cannabinoids Negati ve negati ve normal Not Available [facility] [address] [place], [address], 07/05/2024 10:43:06 07/04/19 25 07/05/2024 DRUG ABUSE PANEL 7 W/CON FIRM methadone Negati ve negati ve normal Not Available [facility] [address] [place], [address], 07/05/2024 10:43:06 07/04/19 25 07/05/2024 DRUG ABUSE PANEL 7 W/CON FIRM opiates Negati ve negati ve normal Not Available [facility] [address] [place], [address], 07/05/2024 10:43:06 07/04/19 25 07/05/2024 DRUG ABUSE PANEL 7 W/CON FIRM creatinine, urine 50 mg/dL 20 - 275 normal Not Available [facility] [address] [place], [address], 07/05/2024 10:43:06 07/05/19 25 07/04/2024 POC GLUCO SE POC glucose 116 mg/dL 70-99 high Not Available [facility] (Lab) [place], [address], 07/04/2024 07:31:56 07/05/19 25 07/04/2024 POC GLUCO SE POC glucose 126 mg/dL 70-99 high Not Available [facility] (Lab) [place], [address], 07/04/2024 11:06:55 07/15/19 25 07/15/2024 CULTU RE, URINE , ROUTI NE culture, urine, routine SEE NOTE CULTU RE, URINE , ROUTI NE Micro Numbe r: [id number] Test Statu s: Final Speci men Sourc e: Urine Speci men Quali ty: Adequ ate Resul t: No Growt h Not Available [facility] [address] [place], [address], 07/15/2024 20:13:21 07/15/19 25 07/18/2024 STREP TOCOC CUS, GROUP B CULTU RE streptococcu s, group B culture SEE NOTE STREP TOCOC CUS, GROUP B CULTU RE Micro Numbe r: [id number] Test Statu s: Final Speci men Sourc e: .Rect ovagi nal Speci men Quali ty: Adequ ate Resul t: No group B Strep tococ cus isola cheyanne Note per CDC guide lines optim al recov kenyatta is achie tai by swabb ing both the lower vagin a and rectu m (thro ugh the anal sphin cter) . Not Available [facility] [address] , [place], [address], 07/18/2024 10:35:38 07/18/19 25 07/17/2024 urina lysis , dipst ick Leukocytes Negati ve Not Available [address], [place], [address], 07/17/2024 15:25:44 07/18/19 25 07/17/2024 urina lysis , dipst ick Nitrite negati ve Not Available [address], [place], [address], 07/17/2024 15:25:44 07/18/19 25 07/17/2024 urina lysis , dipst ick Urobilinogen .2 Not Available [address], [place], [address], 07/17/2024 15:25:44 07/18/19 25 07/17/2024 urina lysis , dipst ick Protein Trace Not Available [address], [place], [address], 07/17/2024 15:25:44 07/18/19 25 07/17/2024 urina lysis , dipst ick pH 5.0 Not Available [address], [place], [address], 07/17/2024 15:25:44 07/18/19 25 07/17/2024 urina lysis , dipst ick Blood Negati ve Not Available [address], [place], [address], 07/17/2024 15:25:44 07/18/19 25 07/17/2024 urina lysis , dipst ick Specific Powell 1.020 Not Available [facility] [address], [place], [address], 07/17/2024 15:25:44 07/18/19 25 07/17/2024 urina lysis , dipst ick Ketone Small Not Available [address], [place], [address], 07/17/2024 15:25:44 07/18/19 25 07/17/2024 urina lysis , dipst ick Bilirubin Negati ve Not Available [address], [place], [address], 07/17/2024 15:25:44 07/18/19 25 07/17/2024 urina lysis , dipst ick Glucose 100 Not Available [facility] [address] [place] [address], [place], [address], 07/17/2024 15:25:44 07/18/19 25 07/17/2024 urina lysis , dipst ick Appearance Clear Not Available [address], [place], [address], 07/17/2024 15:25:44 07/18/19 25 07/17/2024 urina lysis , dipst ick Color Dark Yellow Not Available [address], [place], [address], 07/17/2024 15:25:44 06/19/19 US, obste tric, bioph ysica l profi le No observ ation record ed. [email or web address] [facility] [place] [address] [facility], [place], [address], 06/18/2024 14:26:30 03/19/06/18/2024 US, obste tric, bioph ysica l profi le No observ ation record ed. [email or web address] [address], [place], [address], 06/19/2024 12:12:29 06/24/19 25 US, obste tric, bioph ysica l profi le No observ ation record ed. [facility] [place] [address] [facility], [place], [address], 06/23/2024 13:30:43 06/24/19 25 06/23/2024 US, obste tric, bioph ysica l profi le No observ ation record ed. [address], [place], [address], 06/23/2024 16:32:27 07/04/19 25 US, obste tric, bioph ysica l profi le No observ ation record ed. [email or web address] [facility] [address] [facility], [place], [address], 07/03/2024 15:00:04 07/04/19 25 07/03/2024 US, obste tric, follo w-up No observ ation record ed. [email or web address] [address], [place], [address], 07/03/2024 21:44:11 07/12/19 25 US, obste tric, bioph ysica l profi le No observ ation record ed. ARMANDO [facility] [address] [facility], [place], [address], 07/11/2024 15:06:03 07/13/19 25 07/11/2024 US, obste tric, bioph ysica l profi le No observ ation record ed. [email or web address] [address], [place], [address], 07/13/2024 01:09:36 07/15/19 25 US, obste tric, bioph ysica l profi le No observ ation record ed. ARMANDO [facility] [address] [place], [address], 07/14/2024 14:20:23 07/16/19 25 07/14/2024 US, obste tric, follo w-up No observ ation record ed. [email or web address] [address], [place], [address], 07/15/2024 08:42:53 Result Notes None recorded. Problems Name Problem SNOMED Code Status Onset Date Resolution Date Notes Provider Name and Address Organization Details Recorded Time 89294594 Active 2024 Ramonita peguero, [employer] [facility] 5 15:43:45 Insuffici ent care 58811564320 09 Active 2024 PATRIC based on 26 wk US. Late onset care due to difficult y finding provider who took [facility] medicaid Had last 2 children at [place] Carley Mckeon MD [address] [place], [address] , [facility] 5 14:22:54 Multigrav sher of advanced maternal age 526575204 Active 2024 Emily Gallego CNM [address] [place], [address] , [facility] 5 13:25:19 History of substance use disorder Active 2024 H/o Amphetami ne use - Negative UDS Emily Gallego CNM [address] [place], [address] , [facility] 5 14:31:52 Past history of pre-eclam psia 85084912060 9100 Active 2024 Was on magnesium sulfate per records Emily Gallego CNM [address] [place], [address] , [facility] 5 14:31:12 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 A1c = 5.8; Discussed w/Dr Mckeon and will start Lantus 10 units at bedtime daily. EFW 60%; MIR WNL 07/03/24 admitted to [facility] for poorly controlle d GDM for insulin titration . Pt on Lantus and Lispro Carley Mckeon MD Counts include 234 beds at the [facility] [place], [address] , [facility] IV 5 14:22:06 Past history of premature delivery 509582021 Active 2024 36 and ? 35 wks Emily Gallego CNM [address] [place] [address], [address] , [facility] 5 14:05:03 History of kidney infection 730238382 Active 2024 Inpatient admission at [facility] - IV abx. Prophylax is started 06/18 - cephalexi n 500 mg daily. Emily Gallego CNM [address] [place], [address] , [facility] 5 14:30:59 History of disorder of connectiv e tissue 689742376 Active 2024 hx of SLE MATT ANN [address] [place] [address], [address] , [facility] 5 01:12:42 Gestation al diabetes mellitus 01431595 Active 2024 Ramonita peguero, [employer] [facility] 5 15:43:45 Problem Notes None recorded. Procedures Surgical History Date Name Laterality Status Provider Name and Address Organization Details Recorded Time 07/17/2024 NST completed REUBEN CARSON NP [address] [place] [address], [address], [place] [facility] 07/17/2024 15:48:50 07/14/2024 NST completed CHRISTINE GOULD, AUTOMATION MACHINE OPERATOR [address] [facility], [place], [address], [place] [facility] 07/14/2024 16:44:14 07/08/2024 NST cancelled Brian Wells [facility] 07/07/2024 20:03:03 Imaging Results Imaging Date Name Status LastModified by Organiz ation Details LastModified Time 06/18/2024 US, obstetric, biophysical profile completed [facility] [place] [address] [facility], [place], [address], 06/18/2024 14:26:30 06/18/2024 US, obstetric, biophysical profile completed [email or web address] [address], [place], [address], 06/19/2024 12:12:29 06/23/2024 US, obstetric, biophysical profile completed [facility] [place] [address] [facility], [place], [address], 06/23/2024 13:30:43 06/23/2024 US, obstetric, biophysical profile completed [email or web address] [address], [place], [address], 06/23/2024 16:32:27 07/03/2024 US, obstetric, biophysical profile completed [email or web address] [facility] [address] [facility], [place], [address], 07/03/2024 15:00:04 07/03/2024 US, obstetric, follow-up completed [email or web address] [address], [place], [address], 07/03/2024 21:44:11 07/11/2024 US, obstetric, biophysical profile completed ARMANDO [facility] [address] [facility], [place], [address], 07/11/2024 15:06:03 07/11/2024 US, obstetric, biophysical profile completed marcos [address], [place], [address], 07/13/2024 01:09:36 07/14/2024 US, obstetric, biophysical profile completed ARMANDO [facility] [address] [facility], [place], [address], 07/14/2024 14:20:23 07/14/2024 US, obstetric, follow-up active [email or web address] [address], [place], [address], 07/15/2024 08:42:53 Procedure Notes None recorded. Medical Equipment None Reported. Allergies Allergen ID Allergen Name Allergen Category Reaction Reaction Severity Criticality Documentation Date Start Date Code Code System Note Provider Name and Address Organization Details Recorded Time 545615 latex environme nt,medica tion rash Not available high 06/18/20242017 08806 91 RxNorm Not Available Not Available Not Available 172874 Latex (substanc e) environme nt,medica tion rash Not available high 07/11/20242017 89180 8007 SNOMED unrec ogniz ed react ion (text : Unkno wn, code: 88417 5006) (from exter nal sourc e) Not Available Not Available Not Available Medications Name Sig Start Date Stop Date Status Note LastModified by Organization Details LastModified Time cephalexin 500 mg capsule 500 mg by oral route. 07/04 completed Not Available Not Available Not Available Humulin R Regular U-100 Insulin 100 unit/mL injection solution 10 units twice a day by injection route. 07/04 completed Not Available Not Available Not Available ferrous sulfate 325 mg (65 mg iron) tablet 325 mg by oral route. active Not Available Not Available No t Available aspirin 81 mg chewable tablet CHEW AND SWALLOW 1 TABLET BY MOUTH ONCE DAILY active Not Available Not Available No t Available epinephrine 0.3 mg/0.3 mL injection, auto-inject or INJECT 1 PEN INTRAMUSC ULARLY NEEDED FOR 30 DAYS active Not Available Not Available No t Available insulin lispro (U-100) 100 unit/mL subcutaneou s pen INJECT 10 UNITS WITH EACH MEAL - MAX OF 30 UNITS DAILY active Not Available Not Available No t Available insulin regular U-100 human 100 unit/mL (3 mL) subcutaneou s pen Inject 5 units twice a day by subcutane ous route. 06/30 completed Not Available Not Available Not Available Lantus Solostar U-100 Insulin 100 unit/mL (3 mL) subcutaneou s pen 20 units by sub-q route. 07/04 completed Not Available Not Available Not Available TRUEplus Insulin 1 mL 31 gauge x 5/16 syringe USE SYRINGE TWICE DAILY 06/30 completed Not Available Not Available Not Available + DHA 28 mg iron-800 mcg-200 mg oral pack Take by oral route. active Not Available Not Available No t Available Dexcom G7 [employer] USE DIRECTED 06/30 completed Not Available Not Available Not Available Dexcom G7 Sensor device USE DIRECTED active Not Available Not Available No t Available Vitals Date Recorded Body height Provider Name an d Address Organization Details Last Updated DateTime 06/30/2024 170.18 cm Tatyana Barnes [employer] [facility] [employer] [facility] 06/30/2024 15:35:49 Date Recorded Body weight Systolic blood pressure Diastolic blood pressure Provider Name and Address Organization Details Last Updated DateTime 06/30/2024 13541.512 15 g 110 mm[Hg] 64 mm[Hg] Faby Emerson [employer] [facility] 06/30/2024 15:48:11 Date Recorded Body height Body mass index (BMI) Body weight Systolic blood pressure Diastolic blood pressure Provider Name and Address Organization Details Last Updated DateTime 07/03/2024 170.18 cm 31.1 kg/m2 75063.44 g 122 mm[Hg] 68 mm[Hg] Ramonita Mao [employer] IV 14:35:21 Date Recorded Body weight Body height Systolic blood pressure Diastolic blood pressure Provider Name and Address Organization Details Last Updated DateTime 07/11/2024 71864.251 11 g 170.18 cm 120 mm[Hg] 68 mm[Hg] Ramonita Elliottstefan [employer] IV 07/11/2024 15:43:27 Date Recorded Body height Body mass index (BMI) Body weight Systolic blood pressure Diastolic blood pressure Provider Name and Address Organization Details Last Updated DateTime 07/14/2024 170.18 cm 31.6 kg/m2 74216.66 g 120 mm[Hg] 64 mm[Hg] Soni Griffin [employer] IV 16:37:43 Date Recorded Body height Body mass index (BMI) Body weight Body temperature Systolic blood pressure Diastolic blood pressure Provider Name and Address Organization Details Last Updated DateTime 170.18 cm 31.8 kg/m2 40410.5 3 g 97.5 [degF] 128 mm[Hg] 72 mm[Hg] Tor Weber [employer] IV 14:40:13 Social History Question Answer Notes LastModified by Organizat ion Details LastModified Time Tobacco Smoking Status Former Smoker Brian peguero, [employer] [facility] 06/18/2024 12:51:04 What Is Your Level Of Alcohol Consumption? None Information not available 06/18/2024 Are You Blind Or Do You Have Difficulty Seeing? No Information not available 06/18/2024 Are You Deaf Or Do You Have Serious Difficulty Hearing? No Information not available 06/18/2024 What Type Of Diet Are You Following? REGULAR Watching Diet Information not available 06/18/2024 When Did You Quit Smoking? 1-5yearssin celastcigar ette Information not available 06/18/2024 How Many Children Do You Have? 3 Information not available 06/18/2024 What Is Your Relationship Status? Information not available 06/18/2024 Are You Sexually Active? No Information not available 06/18/2024 At What Age Did You Start Smoking Tobacco? 18 Information not available 06/18/2024 How Much Tobacco Do You Smoke? 3+ PPD Information not available 06/18/2024 What Types Of Sporting Activities Do You Participate In? Yoga / Walk Information not available 06/18/2024 Do You Use Any Illicit Or Recreational Drugs? No Information not available 06/18/2024 How Many Years Have You Smoked Tobacco? 25 Information not available 06/18/2024 Sex: Unknown Functional Status Question Answer Note LastModified by Organizat ion Details LastModified Time What is your exercise level? Occasional Information not available 06/18/2024 Mental Status None recorded. Family History Nothing Reported. Medical History Condition Response Other Cancer N High Blood Pressure N Colon Cancer N Cytomegalovirus N Hyperthyroidism N Breast Cancer N Herpes (HSV) N MRSA N Blood Transfusion N Lung Cancer N Depression N Hypothyroidism N Incontinence N Panic Attacks N Neurological Disorder N Deep Vein Thrombosis N Anxiety Disorder N Autoimmune disease N Arthritis N Tuberculosis/Positive PPD N Shingles N Polycystic Ovarian Syndrome N Infertility N Cervical Cancer N Hematuria N Chlamydia N Varicosities N Stroke N Crohn's Disease N Seasonal allergies N Alzheimer's/Dementia N COPD/Emphysema N HPV/Genital Warts N Endometriosis N IBS (Irritable Bowel Syndrome) N History of Abnormal Pap N High Cholesterol N Liver Disease N Fibromyalgia N Kidney Infection N Ulcer N Kidney Disease N HIV N Gallbladder disease N Von Willebrand disease N Sickle Cell Disease/Trait N ADD/ADHD N Eating Disorder N Diabetes Mellitus (non-insulin dependent ) N Anemia N Ovarian Problems N Multiple Sclerosis N Gonorrhea N Frequent Urinary Tract infections N Osteopenia N Headaches/migraines N GERD (reflux) N Ovarian Cancer N Diabetes (insulin dependent) Y Seizures/Epilepsy N Breast Problems N Fibroids N Asthma N Heart Attack N Endometrial Cancer N Lupus N Rubella N Blood Clotting Disorder N Bipolar Disorder N Diabetes Mellitus (during ) N Ulcerative Colitis N Hepatitis N Heart Disease N Pulmonary Embolism N RPR N Chicken Pox N Osteoporosis N Gynecological History Statement/Question Response Date of Last Colonoscopy Date of LMP 10/01/2023 Most Recent Bone Density Date of Last Pap Smear Most Recent Mammogram Current Control Method Age at Menarche 15 Obstetrics History GPAL:G 5 P 3 0 0 3 Type Value Full Term 3 Living 3 Total 5 Past Encounters Encounter ID Performer Location Encounter Start Date Encounter Closed Date Diagnosis/Indication Diagnosis SNOMED-CT Code Diagnosis ICD10 Code Diagnosis Note [id number] Jake Saleh DO [facility] [address] [facility] [place] [address] 06/18/2024 12:28:13 06/19/2024 17:00:36 [id number] Z33.1 [id number] Emily Gallego CNM [facility] [address] [place] [address] 06/18/2024 12:37:01 06/18/2024 14:39:40 High risk 66668285 O09.93 Insufficie nt care 0666318360 109 O09.33 Multigravi da of advanced maternal age 059697548 O09.523 screening for malformation 273816131 Z36.3 screening 2437 30672 Z36.9 History of substance use disorder 6941051772 F19.91 Past pregn leon history of pre-eclampsia 3881021244 85174 Z87.59 Gestationa l diabetes mellitus 17534190 O24.419 Pyelonephritis 00593002 N12 Gestation period, 30 weeks 00611142 Z3A.30 Denies vaginal bleeding, abdominal cramps, N/V, contractio ns, and LOF. Denies headache, vision changes, swelling of hands or face, or epigastric pain. Reports active movement. movement awareness discussed. PTL precaution s reviewed [id number] Emily Gallego CNM [facility] [address] [place] [address] 06/23/2024 13:11:13 06/23/2024 14:41:20 Gestation period, 30 weeks 02666008 Z3A.30 Denies vaginal bleeding, abdominal cramps, N/V, contractio ns, and LOF. Denies headache, vision changes, swelling of hands or face, or epigastric pain. Reports active movement. movement awareness discussed. PTL precaution s reviewed Gestationa l diabetes mellitus class A2 12758513 O24.414 High risk 4720 0007 O09.43 [id number] Jake Yung MD [facility] [address] [place] [address] 06/30/2024 15:14:56 07/01/2024 11:33:39 Gestation period, 31 weeks 48216614 Z3A.31 Patient is doing well.We will increase her insulin for better control of her diabetes. [id number] MATT ANN [facility] h [address] [place] [address] 07/03/2024 13:29:30 07/07/2024 13:01:05 Gestational diabetes mellitus 72294980 O24.414 Gestation period, 32 weeks 5038325 Z3A.32 screening 2437 53096 Z36.89 High risk 4720 0007 O09.93 [id number] FELICITAS STEELE CRYSTAL [facility] h [address] [place] [address] 07/11/2024 15:05:59 07/11/2024 16:32:36 Gestational diabetes mellitus 81718379 O24.414 High risk 4720 0007 O09.93 Call our office or go to labor and delivery for the following: If you are less than 37 weeks and have move than 4 contractio ns an hour.Blurr ing of vision or spots before your eyes and/or HARuptured membranes or leakage of vaginal fluid -may be a steady trickle or large gush - may be clear, yellow, pink or greenDecre ased movement-- if your baby has stopped moving or is moving less than it normally does. Do Kick Counts as instructed .Vaginal bleeding-- bright red bleeding and/or clots needs medical care immediatel y.Any temperatur e above 100 degrees.An y burning or painful urination. Increased swelling in your face, hands, or feet.Stoma ch pains, cramps, nausea,or diarrhea. Gestation period, 32 weeks 8572198 Z3A.32 [id number] LU GUILLEN [facility] [address] [place] [address] 07/14/2024 14:20:21 07/14/2024 17:48:03 High risk 57201336 O09.93 Gestationa l diabetes mellitus 62140640 O24.414 Gestation period, 33 weeks 84187233 Z3A.33 screening 2437 12454 Z36.85 History of urinary tract infection 9139848159 107 Z87.258 [id number] REUBEN CARSON NP [facility] [address] [place] [address] 07/17/2024 14:32:09 07/17/2024 16:06:54 Gestation period, 34 weeks 10998131 Z3A.34 High risk 4720 0007 O09.90 Pt is here for a ROBIN appointmen t. She is taking vitamins. She has no complaints or questions. Reports feeling movement. Denies vaginal bleeding, abdominal cramps, N/V, contractio ns, or LOF. Denies headache, vision changes, swelling of hands or face, and epigastric pain. Discussed PTL and precaution s given. There are no identifiab le risk factors for pre-term labor. Premature uterine contraction 196134409 O47.00 Patient sleep on NST however painfully contractin g on exam. patient having to breath through contractio ns. DVE 04 patient states she did have her last baby in the parking lot of the hospital. patient sent to [facility] for continued monitoring . NST reactive Health Concerns Section Related Observation LastModified by Organization Detai ls LastModified Time None Recorded Concern Status LastModified by Organization Details LastModified Time None Recorded Advance Directives Directive None Recorded Payers Encounter Date Sequence Insurance Name Policy Number Policy Ibrahim Covered Member ID Ibrahim Member ID Guarantor Name 06/30/2024 1 [place] [facility] (MEDICAID REPLACEMENT - HMO) [id number] Kellie Gramajo [id number] Kellie Robbdis 07/03/2024 1 [place] [facility], [facility]1983 (MEDICAID REPLACEMENT - HMO) [id number] Kellie Gramajo [id number] Kellie Mordis 07/11/2024 1 [place] [facility], [facility] (MEDICAID REPLACEMENT - HMO) [id number] Kellie Avila [id number] Kellie Mordis 07/14/2024 1 [place] [facility], [facility] (MEDICAID REPLACEMENT - HMO) [id number] Kellie Gramajo [id number] Kellie Mordis 07/17/2024 1 [place] [facility] (MEDICAID REPLACEMENT - HMO) [id number] Kellie Gramajo [id number] Kellie Gramajo Notes Date Note Type Note Provider Name and Address Organization Details Recorded Time 06/30/2024 text/html The patient verb ally consented to documentation via virtual scribe for this encounter. Patient is here today for a routine OB visit. She is currently at {{6 7 8 9 10 11 12 13 14 15 16 17 18 19 20 21 22 23 24 25 26 27 28 29 30 31 32 33 34 35 36 37 38 39 40 41 31.5#}} weeks gestation. vitamins: {{yes* no}} She {{has* has not}} felt movement. Pt is requesting drug screening. She denies any complaints of the presence of vaginal bleed, leaking fluid, abdominal cramps, nausea, vomiting, headache or visual disturbances. She has a history of gestation diabetes and states that her fasting blood sugars were as high as 189. She states that her 2-hour sugars are around 200. She is currently on Novol R insulin as directed. Her first US was at 26 weeks. Jake Yung MD Counts include 234 beds at the [facility] [place], [address], [facility] [employer] 06/30/2024 20:00:31 07/03/2024 text/html [facility] OB Return VisitReported bypatient. symptoms: movement normal; no movement (consistent with gestational age); normal vaginal discharge/no ROM; no bleeding; pelvic pressure; no contractions/mild cramping only Gastrointestinal:no gastrointestinal symptoms Cardiovascular:no cardiovascular symptoms Musculoskeletal:no joint pain Neurologic:no headache; no visual changes Breast:plans to breast feed Social/psychiatric issues:no reported concerns with support system; no anxiety; no symptoms of depression Patient is here today for a routine OB visit. She is currently at {{6 7 8 9 10 11 12 13 14 15 16 17 18 19 20 21 22 23 24 25 26 27 28 29 30 31 32 33 34 35 36 37 38 39 40 41 32.1#}} weeks gestation. vitamins: {{yes* no}} She {{has* has not}} felt movement.She denies any complaints of the presence of vaginal bleed, leaking fluid, abdominal cramps, nausea, vomiting, headache or visual disturbances MATT ANN [address] [facility], [place], [address], [facility] [employer] 07/06/2024 01:30:02 07/11/2024 text/html [facility] OB Return VisitReported bypatient. symptoms: movement normal; no movement (consistent with gestational age); normal vaginal discharge/no ROM; no bleeding; pelvic pressure; no contractions/mild cramping only Gastrointestinal:no gastrointestinal symptoms Cardiovascular:no cardiovascular symptoms Musculoskeletal:no joint pain Neurologic:no headache; no visual changes Breast:plans to breast feed Social/psychiatric issues:no reported concerns with support system; no anxiety; no symptoms of depression Patient is here today for a routine OB visit. She is currently at {{6 7 8 9 10 11 12 13 14 15 16 17 18 19 20 21 22 23 24 25 26 27 28 29 30 31 32 33 34 35 36 37 38 39 40 41 33.2#}} weeks gestation. vitamins: {{yes* no}} She {{has* has not}} felt movement.She denies any complaints of the presence of vaginal bleed, leaking fluid, abdominal cramps, nausea, vomiting, headache or visual disturbances FELICITAS STEELE [facility] [address] [place], [address], [employer] 07/16/2024 13:44:36 07/14/2024 text/html [facility] OB Return VisitReported bypatient. symptoms: movement normal; no movement (consistent with gestational age); normal vaginal discharge/no ROM; no bleeding; pelvic pressure; no contractions/mild cramping only Gastrointestinal:no gastrointestinal symptoms Cardiovascular:no cardiovascular symptoms Musculoskeletal:no joint pain Neurologic:no headache; no visual changes Breast:plans to breast feed Social/psychiatric issues:no reported concerns with support system; no anxiety; no symptoms of depression Patient is here today for a routine OB visit. She is currently at {{6 7 8 9 10 11 12 13 14 15 16 17 18 19 20 21 22 23 24 25 26 27 28 29 30 31 32 33 34 35 36 37 38 39 40 41 33.5#}} weeks gestation. vitamins: {{yes* no}} She {{has* has not}} felt movement.She denies any complaints of the presence of vaginal bleed, leaking fluid, abdominal cramps, nausea, vomiting, headache or visual disturbances CHRISTINE GOULD, [facility] [address] [place], [address], [employer] 07/14/2024 17:02:01 07/17/2024 text/html Kellie is here toda y for a routine OB visit. She is currently at {{6 7 8 9 10 11 12 13 14 15 16 17 18 19 20 21 22 23 24 25 26 27 28 29 30 31 32 33 34 35 36 37 38 39 40 41 34.1#}} weeks gestation. vitamins: {{yes* no}} She {{has* has not}} felt movement.She denies any complaints of the presence of vaginal bleed, leaking fluid, abdominal cramps, nausea, vomiting, headache or visual disturbances. Pt. has no concerns REUBEN CARSON, CRYSTAL [address] [facility], [place], [address], [facility] [employer] 07/18/2024 17:00:50 OBGyn Episode Ob Episode Information Episode Created Date Number of Fetuses Patient Bloodtype Patient rh Status Prepregnancy Weight lbs Domestic Partner Domestic Partner Phone Father Name Business Broker Status 06/19/19 25 1 O Positive OPEN Fetus Data First Name Last Name Admitted to NICU Weight (g) Sex Living Outcome Pediatric Complications Fetus ID Race Codes Race Delivery Type [id number] Problems Problem Notes Problem Name Start Date End Date Resolution Snomed Code Not e Past history of pre-eclampsia 06/18/2024 [id number] Was on magn esium sulfate per records History of kidney infection 06/18/2024 [id number] Inpatient admis joanie at [facility] - IV abx. Prophylaxis started 06/18 - cephalexin 500 mg daily. Insufficient care 06/18/2024 [id number] PATRIC based on 26 wk US.Late onset care due to difficulty finding provider [facility]icaid[place] History of disorder of connective tissue 07/06/2024 [id number] hx of SLE Past history of premature delivery 06/18/2024 597834983 36 and ? 35 wks Gestational diabetes mellitus 06/18/2024 74996095 06/18: Init ial visit: Pt reports fasting values 117-120; postprandial in the 200s. A1c = 5.8; Discussed w/Dr Mckeon and will start Lantus 10 units at bedtime daily. EFW 60%; MIR WNL4/3/25 admitted to [facility] for poorly controlled GDM for insulin titration. Pt on Lantus and Lispro History of substance use disorder 06/18/2024 [id number] H/o Amphetamine use - Negative UDS Multigravida of advanced maternal age 0306/18/2024 429956614 Patric Calculation Initial Patric Date Initial Exam Date Initial Exam Provider Initial Ultrasound Date Last Menstrual Period Date Ultra Sound Weeks Gestation 06/18/2024 05/27/2024 10/01/2023 26 Eighteen To Twenty Week Patric Update Ultra Sound Date Fundal Height At Umbil Quickening Date Ultra Sound Latest Weeks Gestation Final Patric Confirmed By Final Patric Confirmed Date Final Patric Date Ultra Sound Latest Days Gestation 0 06/18/2024 08/28/19 25 0 Pre-dhruv Flowsheet Flowsheet Date 06/18/2024 Manrique Score Blood Edema Fundus Height Fundus Units Glucose Ketones Leukocytes Nitrite Labor Signs Protein Cervic Dilation Cervic Effacement Cervic Station Type Weight in lbs Pre/Post Dialysis Refused BP Diastolic BP Location Tested BP Systolic BP Type Fetus Heart Rate Present Fetus Movement Comments Flowsheet Date 06/18/2024 Manrique Score Blood Edema Fundus Height Fundus Units Glucose Ketones Leukocytes Nitrite Labor Signs Protein Cervic Dilation Cervic Effacement Cervic Station Type Weight in lbs Pre/Post Dialysis Refused With clothes 192.994361496676 BP Diastolic BP Location Tested BP Systolic BP Type 60 120 sitting Fetus Heart Rate Present Fetus Movement A Yes Comments urgent care - new pt establi OB care. See problem list Flowsheet Date 06/23/2024 Manrique Score Blood Edema Fundus Height Fundus Units Glucose Ketones Leukocytes Nitrite Labor Signs Protein Cervic Dilation Cervic Effacement Cervic Station Type Weight in lbs Pre/Post Dialysis Refused With clothes 193.499916484411 BP Diastolic BP Location Tested BP Systolic BP Type 60 110 sitting Fetus Heart Rate Present Fetus Movement Comments BPP 8/8; Pt reports glucose fasting 110-117; postpr 190s. Discussed w/Dr Yung - new insulin regimen - 12 NPH/5 reg at night and 12 NPH/5 reg in am. F/u in 1 wk. Flowsheet Date 06/30/2024 Manrique Score Blood Edema Fundus Height Fundus Units Glucose Ketones Leukocytes Nitrite Labor Signs Protein Cervic Dilation Cervic Effacement Cervic Station none 38 cm none neg Type Weight in lbs Pre/Post Dialysis Refused With clothes 195.722098713728 BP Diastolic BP Location Tested BP Systolic BP Type 64 110 sitting Fetus Heart Rate Present A 140 Present Fetus Movement A Yes Comments incarcerated and if she has a c section will do a tubal after all risks benfits discussed Flowsheet Date 07/03/2024 Manrique Score Blood Edema Fundus Height Fundus Units Glucose Ketones Leukocytes Nitrite Labor Signs Protein Cervic Dilation Cervic Effacement Cervic Station none neg Type Weight in lbs Pre/Post Dialysis Refused With clothes 198.69272222691 BP Diastolic BP Location Tested BP Systolic BP Type 68 122 sitting Fetus Heart Rate Present A 145 Fetus Movement A Yes Comments EFW 65% BPP 11/07Fasting- 150s PP-190-200s, has made significant diet changesReg ins- 10 u am and pm, Lantus-20u am, 16u pmDiscussed glucose readings with Dr Mckeon, pt agreeable [facility] for glucose managementRTC at next scheduled visit Flowsheet Date 07/11/2024 Manrique Score Blood Edema Fundus Height Fundus Units Glucose Ketones Leukocytes Nitrite Labor Signs Protein Cervic Dilation Cervic Effacement Cervic Station none neg Type Weight in lbs Pre/Post Dialysis Refused With clothes 203.25410870592 BP Diastolic BP Location Tested BP Systolic BP Type 68 120 sitting Fetus Heart Rate Present A 136 Fetus Movement A Yes Comments No ob concerns. BPP 11/07- con tinue twice weekly testing Current insulin dose 10 units lispro 3 times a day20 units lantus in am, 16 units in pmfasting 88, PP 120s- continue current dose Flowsheet Date 07/14/2024 Manrique Score Blood Edema Fundus Height Fundus Units Glucose Ketones Leukocytes Nitrite Labor Signs Protein Cervic Dilation Cervic Effacement Cervic Station none none none neg 0cm Type Weight in lbs Pre/Post Dialysis Refused Weight 202.479152525220 BP Diastolic BP Location Tested BP Systolic BP Type 64 R arm 120 sitting Fetus Heart Rate Present A 135 Fetus Movement A Yes Comments C/O intermittent cramping, c tx noted on NST today. NST non-reactive, reviewed by Dr. Yung. BPP 11/07. GBS collected today due to hx of early deliveries. SVE- closed. Reviewed PTL precautions. BG logs reviewed. Fasting 100-113, 1 hr PP WNL. 20 in AM, 16 in PM of NPH, confirmed by patient. 10 units lispro with meals. Reviewed with Dr. Yung and will increase evening dose to 18 units in PM and instructed patient to increase 2 units daily for fasting BG over 100. Keep next scheduled appointment. Flowsheet Date 07/17/2024 Manrique Score Blood Edema Fundus Height Fundus Units Glucose Ketones Leukocytes Nitrite Labor Signs Protein Cervic Dilation Cervic Effacement Cervic Station Uterine Contract ions 0cm 20% -4 Type Weight in lbs Pre/Post Dialysis Refused Weight 202.939529636011 BP Diastolic BP Location Tested BP Systolic BP Type 72 128 Fetus Heart Rate Present A 145 Present Fetus Movement A Yes Comments Patient painfully contractin g. patient notes they are getting more painful. patient sent to [facility] for evaluation. RTC in 1 wk for NST Menstrual History Last Menstrual Date Menses Monthly On Bcp Conception Prior Menses Frequency Hcg Plus Date Menarche Onset Age 0710/01/2023 Delivery Information Delivery Date Delivery Type Labor Anesthesia Weeks Gestation Incision Type Labor Labor Length Hrs Delivered By Post Complications Tubal Sterilization Discharge Date Comments Discharge Information Feeding Method Contraceptive Method Maternal HG B and HCT Levels Ob Episode Information Episode Created Date Number of Fetuses Patient Bloodtype Patient rh Status Prepregnancy Weight lbs Domestic Partner Domestic Partner Phone Father Name Business Broker Status 06/19/19 25 1 CLOSED Fetus Data First Name Last Name Admitted to NICU Weight (g) Sex Living Outcome Pediatric Complications Fetus ID Race Codes Race Delivery Type M Full Term [id number] Patric Calculation Initial Patric Date Initial Exam Date Initial Exam Provider Initial Ultrasound Date Last Menstrual Period Date Ultra Sound Weeks Gestation 0 Eighteen To Twenty Week Patric Update Ultra Sound Date Fundal Height At Umbil Quickening Date Ultra Sound Latest Weeks Gestation Final Patric Confirmed By Final Patric Confirmed Date Final Patric Date Ultra Sound Latest Days Gestation 0 0 Menstrual History Last Menstrual Date Menses Monthly On Bcp Conception Prior Menses Frequency Hcg Plus Date Menarche Onset Age Delivery Information Delivery Date Delivery Type Labor Anesthesia Weeks Gestation Incision Type Labor Labor Length Hrs Delivered By Post Complications Tubal Sterilization Discharge Date Comments 1 Discharge Information Feeding Method Contraceptive Method Maternal HG B and HCT Levels Ob Episode Information Episode Created Date Number of Fetuses Patient Bloodtype Patient rh Status Prepregnancy Weight lbs Domestic Partner Domestic Partner Phone Father Name Business Broker Status 06/19/19 25 1 CLOSED Fetus Data First Name Last Name Admitted to NICU Weight (g) Sex Living Outcome Pediatric Complications Fetus ID Race Codes Race Delivery Type M Full Term [id number] Patric Calculation Initial Patric Date Initial Exam Date Initial Exam Provider Initial Ultrasound Date Last Menstrual Period Date Ultra Sound Weeks Gestation 0 Eighteen To Twenty Week Patric Update Ultra Sound Date Fundal Height At Umbil Quickening Date Ultra Sound Latest Weeks Gestation Final Patric Confirmed By Final Patric Confirmed Date Final Patric Date Ultra Sound Latest Days Gestation 0 0 Menstrual History Last Menstrual Date Menses Monthly On Bcp Conception Prior Menses Frequency Hcg Plus Date Menarche Onset Age Delivery Information Delivery Date Delivery Type Labor Anesthesia Weeks Gestation Incision Type Labor Labor Length Hrs Delivered By Post Complications Tubal Sterilization Discharge Date Comments 8 Discharge Information Feeding Method Contraceptive Method Maternal HG B and HCT Levels Ob Episode Information Episode Created Date Number of Fetuses Patient Bloodtype Patient rh Status Prepregnancy Weight lbs Domestic Partner Domestic Partner Phone Father Name Business Broker Status 06/19/19 25 1 CLOSED Fetus Data First Name Last Name Admitted to NICU Weight (g) Sex Living Outcome Pediatric Complications Fetus ID Race Codes Race Delivery Type M Full Term [id number] Patric Calculation Initial Patric Date Initial Exam Date Initial Exam Provider Initial Ultrasound Date Last Menstrual Period Date Ultra Sound Weeks Gestation 0 Eighteen To Twenty Week Patric Update Ultra Sound Date Fundal Height At Umbil Quickening Date Ultra Sound Latest Weeks Gestation Final Patric Confirmed By Final Patric Confirmed Date Final Patric Date Ultra Sound Latest Days Gestation 0 0 Menstrual History Last Menstrual Date Menses Monthly On Bcp Conception Prior Menses Frequency Hcg Plus Date Menarche Onset Age Delivery Information Delivery Date Delivery Type Labor Anesthesia Weeks Gestation Incision Type Labor Labor Length Hrs Delivered By Post Complications Tubal Sterilization Discharge Date Comments 3 Discharge Information Feeding Method Contraceptive Method Maternal HG B and HCT Levels
--- OUTSIDE RECORDS SUMMARY | 2024-07-27 16:38 | XMS_ITS | Referral Summary ---
Author Organization [facility] Address [address] [place] [address] Care Team Providers Care Skeet Operator Name Role Phone No, Physician Primary Care Provider [phone] Encounters Date Type Department Care Team Description 06/16/2024 1:23 PM CDT - 06/16/2024 2:55 PM CDT Emergency [facility] OB Emergency Department [address] [place] [address] Demi Lewis MD False labor before 37 completed weeks of gestation in third trimester (Primary Dx); Pelvic pain affecting in third trimester, antepartum; 30 weeks gestation of Discharge Disposition: Discharge to home or self care 06/01/2024 Orders Only [address] [phone] Yenni Umana MD Diet controlled gestational diabetes mellitus (GDM) in second trimester (Primary Dx) 06/01/2024 Orders Only [address] [id number] Yenni Umana MD Diet controlled gestational diabetes mellitus (GDM) in second trimester 05/30/[address] [facility] Residents [facility] Nutritional Counseling [address] [facility] [place] [address] Fina Reed, CDE 05/27/2024 6:40 PM CLINICAL RESEARCH TECHNICIAN - 05/30/2024 11:46 AM CLINICAL RESEARCH TECHNICIAN Hospital Encounter [address] [phone] Jake Moore MD Thayer, Sydney Marie, MD Diet controlled gestational diabetes mellitus (GDM) in second trimester (Primary Dx) Discharge Disposition: Discharge to home or self care 05/28/2024 8:45 AM CLINICAL RESEARCH TECHNICIAN Ancillary Procedure [facility] [address] [facility] 5th [place] [address] 05/27/2024 2:11 PM CLINICAL RESEARCH TECHNICIAN - 05/27/2024 11:59 PM CLINICAL RESEARCH TECHNICIAN Hospital Encounter [facility] BILL[facility] [phone] Emergency, Room R Discharge Disposition: Discharge to home or self care 05/27/2024 2:19 PM CLINICAL RESEARCH TECHNICIAN - 05/27/2024 6:07 PM CLINICAL RESEARCH TECHNICIAN Emergency [address] [address] Blake Taveras MD Abdominal pain (Primary Dx); 26 weeks gestation of ; Acute cystitis with hematuria; History of pre-eclampsia Discharge Disposition: Discharge to a short term hospital for IP from Last 3 Months Allergies Active Allergy Reactions Criticality Noted Date Comments Latex Unknown 05/27/2024 Medications blood-glucose meter kit Use as directed. 1 kit 5 Active blood glucose diagnostic (glucose blood) strip Use as directed up to four times a day. 100 each 1 5 Active lancets misc Use as directed up to 4 times a day. 100 each 1 5 Active alcohol swabs (Alcohol Wipes) pads, medicated Use as directed. 100 each 5 Active PNV with [id number] 27 mg iron- 1 mg tabletIndication s:Prevention of Neural Tube Defects Take 1 tablet by mouth daily 30 tablet 11 5 Active aspirin 81 mg chewable tablet Take 1 tablet (81 mg total) by mouth daily 30 tablet 5 06/01/19 26 Active blood-glucose meter,continuous (Dex[employer] G7 [employer] Plumber) miscIndications: Diet controlled gestational diabetes mellitus (GDM) in second trimester Apply extrusion die corrector 1 each 5 Active blood-glucose sensor (Dexcom G7 Sensor) deviceIndication s:Diet controlled gestational diabetes mellitus (GDM) in second trimester Apply sensor 1 each Active Active Problems Problem Noted Date Diagnosed Date Pyelonephritis affecting , antepartum 0 05/27/2024 Estimated Date of Delivery Comme nts Yes 08/24/2024 Based on Ultraso und Immunizations Immunization Administration Dates Next Due Influenza, Trivalent, Preservative Free, Intramu scular 05/29/2024 Tdap 05/29/2024 Social History Tobacco Use Types Packs/Day Years Used Date Smoking Tobacco: Every Day Cigarettes 0.3 26.3 Started: 1998 Smokeless Tobacco: Never Tobacco Cessation:Ready to Q uit: Yes; Counseling Given: Not Answered Social Connection and Isolat ion Panel [NHANES] Answer Date Recorded In a typical week, how many times do you talk on the phone with family, friends, or neighbors? More than three times a week 05/29/2024 How often do you get togethe r with friends or relatives? More than three times a week 05/29/2024 How often do you attend chur ch or catholic services? More than 4 times per year 05/29/2024 Do you belong to any clubs o r organizations such as gnosticist groups, unions, fraternal or athletic groups, or school groups? Yes 05/29/2024 How often do you attend meet ings of the clubs or organizations you belong to? More than 4 times per year 05/29/2024 Are you , , di vorced, , never , or living with a partner? 05/29/2024 Overall Financial Resource Strain (CARDIA) Answe r Date Recorded How hard is it for you to pa y for the very basics like food, housing, medical care, and heating? Not very hard 05/29/2024 Hunger Vital Sign Answer Date Recorded Within the past 12 months, y ou worried that your food would run out before you got the money to buy more. Never true 05/29/19 25 Within the past 12 months, t he food you bought just didn't last and you didn't have money to get more. Never true 05/29/2024 PRAPARE - Transportation Answer Date Re corded In the past 12 months, has l ack of transportation kept you from medical appointments or from getting medications? No 05/04 In the past 12 months, has l ack of transportation kept you from meetings, work, or from getting things needed for daily living? No 05/29/2024 Housing Stability Vital Sign Answer Checo e Recorded In the last 12 months, was t here a time when you were not able to pay the mortgage or rent on time? No 05/29/2024 In the past 12 months, how m any times have you moved where you were living? 1 05/29/2024 At any time in the past 12 m [facility], were you homeless or living in a residential (including now)? No 05/29/2024 Personal Safety Answer Date Recorded Have you ever been in or are you currently in a harmful physical or emotional relationship or is someone making you feel afraid or unsafe? Denies 05/27/2024 Estimated Date of Delivery Comme nts Yes 08/24/2024 Based on Ultraso und Sex and Gender Information Value Date Recorded Sex Assigned at Not on file Legal Sex Female 12:34 PM CLINICAL RESEARCH TECHNICIAN Gender Identity Female 06/01/2024 8:15 AM CLINICAL RESEARCH TECHNICIAN Sexual Orientation Straight 06/01/2024 8: 15 AM CLINICAL RESEARCH TECHNICIAN Last Filed Vital Signs Vital Sign Reading Time Taken Comments Blood Pressure 120/63 06/16/2024 2:03 PM CDT Pulse 101 06/16/2024 2:03 PM CDT Temperature 36.7 C (98.1 F) 06/16/2024 1:44 PM CDT Respiratory Rate 18 06/16/2024 1:44 PM CDT Oxygen Saturation 99% 06/16/2024 1:44 PM CDT Inhaled Oxygen Concentration - - Weight 84.3 kg (185 lb 14.4 oz) 025 11:32 PM CLINICAL RESEARCH TECHNICIAN Height 170.2 cm (5' 7 ) 05/27/2024 6:52 PM CLINICAL RESEARCH TECHNICIAN Body Mass Index 29.12 05/27/2024 6:52 PM CLINICAL RESEARCH TECHNICIAN Plan of Treatment Upcoming Encounters Date Type Department Care Team (Late st Contact Info) Description 08/25/2024 Hospital Encounter [address] [phone] Dede Workman MD [phone] [address] Procedures Procedure Name Priority Date/Time Associated Diagnosis Comments URINALYSIS AND REFLEX TO MICROSCOPIC AND CULTURE STAT 06/16/2024 2:21 PM CDT POCT GLUCOSE DEVICE Routine 06/16/2024 2 :08 PM CDT PAMG-1 PROTEIN MARKER (ROM) STAT 06/16/2024 1:53 PM CDT POCT GLUCOSE DEVICE Routine 05/30/2024 8 :30 AM CLINICAL RESEARCH TECHNICIAN TYPE AND SCREEN Timed 05/30/2024 4:42 AM CLINICAL RESEARCH TECHNICIAN CBC WITHOUT DIFFERENTIAL Routine 05/30/2024 4:09 AM CLINICAL RESEARCH TECHNICIAN POCT GLUCOSE DEVICE Routine 05/30/2024 4 :06 AM CLINICAL RESEARCH TECHNICIAN POCT GLUCOSE DEVICE Routine 05/29/2024 9 :12 PM CLINICAL RESEARCH TECHNICIAN POCT GLUCOSE DEVICE Routine 05/29/2024 4 :54 PM CLINICAL RESEARCH TECHNICIAN POCT GLUCOSE DEVICE Routine 05/29/2024 1 :34 PM CLINICAL RESEARCH TECHNICIAN GTT 100GM 3HR GESTATIONAL DIAGNOSTIC Timed 05/29/2024 7:53 AM CLINICAL RESEARCH TECHNICIAN GTT 100GM 3HR GESTATIONAL DIAGNOSTIC Timed 05/29/2024 7:53 AM CLINICAL RESEARCH TECHNICIAN GTT 100GM 2HR GESTATIONAL DIAGNOSTIC Timed 05/29/2024 7:16 AM CLINICAL RESEARCH TECHNICIAN GTT 100GM 1HR GESTATIONAL DIAGNOSTIC Timed 05/29/2024 6:17 AM CLINICAL RESEARCH TECHNICIAN GTT 100GM FASTING GESTATIONAL DIAGNOSTIC Timed 05/29/2024 5:13 AM CLINICAL RESEARCH TECHNICIAN CBC WITHOUT DIFFERENTIAL Routine 05/29/2024 5:13 AM CLINICAL RESEARCH TECHNICIAN POCT GLUCOSE DEVICE Routine 05/29/2024 1 :56 AM CLINICAL RESEARCH TECHNICIAN POCT GLUCOSE DEVICE Routine 05/28/2024 8 :31 PM CLINICAL RESEARCH TECHNICIAN POCT GLUCOSE DEVICE Routine 05/28/2024 1 2:28 PM CLINICAL RESEARCH TECHNICIAN US OB 14 WEEKS OR OVER IP Routine 9:41 AM CLINICAL RESEARCH TECHNICIAN CBC WITHOUT DIFFERENTIAL Routine 05/28/2024 6:16 AM CLINICAL RESEARCH TECHNICIAN GTT 50GM 1HR GESTATIONAL SCREEN Routine 05/28/2024 6:16 AM CLINICAL RESEARCH TECHNICIAN GROUP B STREPTOCOCCUS CULTURE Routine 05/27/2024 9:43 PM CLINICAL RESEARCH TECHNICIAN B CHECK SAMPLE STAT 05/27/2024 9:42 PM CLINICAL RESEARCH TECHNICIAN PROTEIN / CREATININE RATIO, URINE, RANDOM Routine 05/27/2024 9:42 PM CLINICAL RESEARCH TECHNICIAN TRICHOMONAS VAGINALIS PCR Routine 05/27/2024 9:42 PM CLINICAL RESEARCH TECHNICIAN N. GONORRHOEAE/C. TRACHOMATIS AMPLIFICATION Routine 05/27/2024 9:42 PM CLINICAL RESEARCH TECHNICIAN DRUGS OF ABUSE SCREEN, URINE WITH REFLEX CONFIRMATION Routine 05/27/2024 9:37 PM CLINICAL RESEARCH TECHNICIAN HEMOGLOBIN ANALYSIS BY ELECTROPHORESIS STAT 05/27/2024 8:29 PM CLINICAL RESEARCH TECHNICIAN HEMOGLOBIN A1C Routine 05/27/2024 8:17 PM CLINICAL RESEARCH TECHNICIAN EGFR Routine 05/27/2024 8:17 PM CLINICAL RESEARCH TECHNICIAN COMPREHENSIVE METABOLIC PANEL Routine 05/27/2024 8:17 PM CLINICAL RESEARCH TECHNICIAN TYPE AND SCREEN Timed 05/27/2024 8:17 PM CLINICAL RESEARCH TECHNICIAN CBC WITHOUT DIFFERENTIAL Routine 05/27/2024 8:17 PM CLINICAL RESEARCH TECHNICIAN HEPATITIS B CORE IGM Routine 05/27/2024 8:17 PM CLINICAL RESEARCH TECHNICIAN RPR Routine 05/27/2024 8:17 PM CLINICAL RESEARCH TECHNICIAN HEPATITIS C ANTIBODY Routine 05/27/2024 8:17 PM CLINICAL RESEARCH TECHNICIAN HEPATITIS B SURFACE ANTIBODY (IMMUNE STATUS) Routine 05/27/2024 8:17 PM CLINICAL RESEARCH TECHNICIAN VARICELLA ZOSTER ANTIBODY, IGG Routine 05/27/2024 8:17 PM CLINICAL RESEARCH TECHNICIAN RUBELLA IGG Routine 05/27/2024 8:17 PM CLINICAL RESEARCH TECHNICIAN HIV 1/2 ANTIBODY PLUS P24 ANTIGEN Routine 05/27/2024 8:17 PM CLINICAL RESEARCH TECHNICIAN US OB LIMITED ED 05/27/2024 4:19 PM CLINICAL RESEARCH TECHNICIAN US RENAL LIMITED IP Routine 05/27/2024 4:05 PM CLINICAL RESEARCH TECHNICIAN US RUQ ED 05/27/2024 4:00 PM CLINICAL RESEARCH TECHNICIAN US APPENDIX IP Routine 05/27/2024 3:45 PM CLINICAL RESEARCH TECHNICIAN B ABO / RH CONFIRMATION TESTING STAT 05/27/2024 2:49 PM CLINICAL RESEARCH TECHNICIAN INFLUENZA A/B, RSV, AND COVID-19 PCR STAT 05/27/2024 2:49 PM CLINICAL RESEARCH TECHNICIAN BLOOD CULTURE STAT 05/27/2024 2:49 PM CLINICAL RESEARCH TECHNICIAN SEPSIS LACTATE WITH REFLEX STAT 05/27/2024 2:47 PM CLINICAL RESEARCH TECHNICIAN BLOOD CULTURE STAT 05/27/2024 2:47 PM CLINICAL RESEARCH TECHNICIAN MAGNESIUM STAT 05/27/2024 1:14 PM CLINICAL RESEARCH TECHNICIAN PHOSPHORUS STAT 05/27/2024 1:14 PM CLINICAL RESEARCH TECHNICIAN EGFR STAT 05/27/2024 1:14 PM CLINICAL RESEARCH TECHNICIAN MANUAL DIFFERENTIAL STAT 05/27/2024 1 :14 PM CLINICAL RESEARCH TECHNICIAN DIFFERENTIAL AUTO STAT 05/27/2024 1:1 4 PM CLINICAL RESEARCH TECHNICIAN ANTIBODY SCREEN Timed 05/27/2024 1:14 PM CLINICAL RESEARCH TECHNICIAN ABO/RH Timed 05/27/2024 1:14 PM CLINICAL RESEARCH TECHNICIAN TYPE AND SCREEN Timed 05/27/2024 1:14 PM CLINICAL RESEARCH TECHNICIAN COMPREHENSIVE METABOLIC PANEL STAT 05/27/2024 1:14 PM CLINICAL RESEARCH TECHNICIAN CBC WITH AUTO DIFFERENTIAL STAT 05/27/2024 1:14 PM CLINICAL RESEARCH TECHNICIAN URINALYSIS, MICROSCOPIC ONLY STAT 05/27/2024 12:54 PM CLINICAL RESEARCH TECHNICIAN URINE CULTURE STAT 05/27/2024 12:54 PM CLINICAL RESEARCH TECHNICIAN URINALYSIS AND REFLEX TO MICROSCOPIC AND CULTURE STAT 05/27/2024 12:54 PM CLINICAL RESEARCH TECHNICIAN from Last 3 Months Results * (ABNORMAL) Urinalysis reflex to microscopic and culture Urine, clean voided (06/16/2024 2:21 PM CDT) Color, ur Yellow Yellow Comment:Testing performed by : [address] [address] Clarity, ur Cloudy(A) Clear [facility] Comment:Testing performed by : [address] [address] Specific gravity, ur 1.017 1.003 - 1.030 [facility] Comment:Testing performed by : [address] [address] pH, urine 6.0 [facility] Comment: Interpretive Data U rine pH is affected by diet, medications, systemic acid-base disturbances, and renal tubular function. pH may affect urinary stone formation. For example, urine pH below 6.0 may help reduce the tendency for calcium phosphate stones and pH greater than 6.0 may reduce the tendency for uric acid stone formation. Source: [facility] [employer] Current Interpretive Data was last revised on 2017 Testing performed by: [address] [address] Protein, ur ql Negative Negative [facility] Comment:Testing performed by : [facility], [address] [place] [address], [place]., [address] Glucose, ur ql Trace(A) Negative [facility] Comment:Testing performed by : [address], [place]., [address] Ketones, ur Negative Negative [facility] Comment:Testing performed by : [address], [place]., [address] Bilirubin, ur Negative Negative [facility] Comment:Testing performed by : [address], [place]., [address] Blood, ur Negative Negative [facility] Comment:Testing performed by : [address], [place]., [address] Urobilinogen, ur <2.0 <2.0 mg/dL [facility] Comment:Testing performed by : [address], [place]., [address] Nitrite, ur Negative Negative [facility] Comment:Testing performed by : [address] [address] Leukocyte esterase, ur Negative Negative [facility] Comment:Testing performed by : [address] [address] UA reflex comment Reflex conditions for microscopic UA and culture not met. [facility] Comment:Testing performed by : [address] [address] Urine, clean voided 06/16/2024 2:21 PM CDT 06/16/2024 2:24 PM CDT us Grady Martin MD LAB MICROBIOLOGY - GENERA L ORDERABLES Final Result [facility] [address] [facility] Department [place] [address] * POCT glucose (06/16/2024 2:08 PM CDT) Glucose, POC 117 70 - 199 mg/dL Comment:Testing performed by : [address] [address] Glucose comment 1 Use This Result [facility] Comment:Testing performed by : [address] [address] Blood 06/16/2024 2:08 PM CDT 06/16/2024 2:08 PM CDT us Demi Lewis MD LAB POCT ORDERABLES - DEVICE Fi nal Result Performing Organization Address [facility] Co de Phone Number [address] [place] [address] * ROM Plus (IGFBP-1/AFP) (06/16/2024 1:53 PM CDT) [facility] IFG Binding Protein-1 / AFP Negative Comment:Testing performed by : [address] [address] Swab 06/16/2024 1:53 PM CDT 06/16/2024 2:01 PM CDT us Grady Martin MD LAB BODY FLUIDS AND STOOL S ORDERABLES Final Result Performing Organization Address [facility] Co de Phone Number [address] [place] [address] * POCT glucose (05/30/2024 8:30 AM CLINICAL RESEARCH TECHNICIAN) Glucose, POC 152 70 - 199 mg/dL Comment:Pre Meal Glucose comment [address] [facility] Blood 05/30/2024 8:30 AM CLINICAL RESEARCH TECHNICIAN 05/30/2024 8:30 AM CLINICAL RESEARCH TECHNICIAN us Jake Moore MD LAB POCT ORDERABL ES - DEVICE Final Result Performing Organization Address [facility]/ZIP Co de Phone Number [facility] Department [place] [address] * Type and screen (05/30/2024 4:42 AM CLINICAL RESEARCH TECHNICIAN) [facility] Jas, indirect Negative ABO Rh O Positive [facility] Blood 05/30/2024 4:42 AM CLINICAL RESEARCH TECHNICIAN 05/30/2024 4:50 AM CLINICAL RESEARCH TECHNICIAN Narrative [facility] - 05/30/2024 6:04 AM CLINICAL RESEARCH TECHNICIAN Has the patient had Daratumumab or Isatuximab in the past 6 months?->Unknown Jake Moore MD LAB BLOOD BANK [facility] ORDERABLES Final Result [facility] Department [place] [address] * (ABNORMAL) CBC without differential (05/30/2024 4:09 AM CLINICAL RESEARCH TECHNICIAN) [facility] WBC 20.5(H) 3.8 - 9.9 K/cumm Hgb 11.2(L) 11.9 - 15.5 g/dL [facility] Hct 33.3(L) 35.6 - 45.5 % [facility] Plt 255 150 - 400 K/cumm [facility] MPV 9.8 9.1 - 12.3 fL [facility] RBC 3.61(L) 3.90 - 5.20 M/cumm [facility] MCV 92.2 81.3 - 96.4 fL [facility] MCH 31.0 27.1 - 33.3 pg [facility] MCHC 33.6 32.3 - 35.7 g/dL [facility] RDW CV 13.9 11.1 - 14.9 % [facility] RDW SD 46.6 35.7 - 48.1 fL [facility] NRBC abs 0.00 0.00 - 0.01 K/cumm [facility] Blood 05/30/2024 4:09 AM CLINICAL RESEARCH TECHNICIAN 05/30/2024 4:23 AM CLINICAL RESEARCH TECHNICIAN Jake Moore MD LAB BLOOD ORDERAB LES Final Result Performing Organization Address [facility] Co de Phone Number [facility] [place] [address] * POCT glucose (05/30/2024 4:06 AM CLINICAL RESEARCH TECHNICIAN) Glucose, POC 122 70 - 199 mg/dL Blood 05/30/2024 4:06 AM CLINICAL RESEARCH TECHNICIAN 05/30/2024 4:06 AM CLINICAL RESEARCH TECHNICIAN Jake Moore MD LAB POCT ORDERABL ES - DEVICE Final Result Performing Organization Address [facility] de Phone Number [facility] [place] [place] [address] * POCT glucose (05/29/2024 9:12 PM CLINICAL RESEARCH TECHNICIAN) Glucose, POC 108 70 - 199 mg/dL Blood 05/29/2024 9:12 PM CLINICAL RESEARCH TECHNICIAN 05/29/2024 9:12 PM CLINICAL RESEARCH TECHNICIAN Jake Moore MD LAB POCT ORDERABL ES - DEVICE Final Result Performing Organization Address [facility] de Phone Number [facility] [place] [address] * POCT glucose (05/29/2024 4:54 PM CLINICAL RESEARCH TECHNICIAN) Glucose, POC 188 70 - 199 mg/dL Blood 05/29/2024 4:54 PM CLINICAL RESEARCH TECHNICIAN 05/29/2024 4:54 PM CLINICAL RESEARCH TECHNICIAN Jake Moore MD LAB POCT ORDERABL ES - DEVICE Final Result Performing Organization Address [facility] Co de Phone Number [facility] [place] [address] * (ABNORMAL) POCT glucose (05/29/2024 1:34 PM CLINICAL RESEARCH TECHNICIAN) Glucose, POC 224(H) 70 - 199 mg/dL Blood 05/29/2024 1:34 PM CLINICAL RESEARCH TECHNICIAN 05/29/2024 1:34 PM CLINICAL RESEARCH TECHNICIAN Jake Moore MD LAB POCT ORDERABL ES - DEVICE Final Result Performing Organization Address City/[facility] Co de Phone Number [facility] [place] [address] * (ABNORMAL) GTT 100gm 3hr gestational diagnostic (05/29/2024 7:53 AM CLINICAL RESEARCH TECHNICIAN) GTT 100g 3h gest 199(H) <=139 mg/dL Blood 05/29/2024 7:53 AM CLINICAL RESEARCH TECHNICIAN 05/29/2024 8:20 AM CLINICAL RESEARCH TECHNICIAN [facility]ative [facility] - 05/29/2024 8:45 AM CLINICAL RESEARCH TECHNICIAN Fasting at least 8 hours prior Jake Moore MD LAB BLOOD ORDERAB LES Final Result Performing Organization Address [facility] Co de Phone Number [facility] [place] [address] * (ABNORMAL) GTT 100gm 2hr gestational diagnostic (05/29/2024 7:16 AM CLINICAL RESEARCH TECHNICIAN) GTT 100g 2h gest 226(H) <=154 mg/dL Blood 05/29/2024 7:16 AM CLINICAL RESEARCH TECHNICIAN 05/29/2024 7:45 AM CLINICAL RESEARCH TECHNICIAN Narrative [facility] - 05/29/2024 8:10 AM CLINICAL RESEARCH TECHNICIAN Fasting at least 8 hours prior Jake Moore MD LAB BLOOD ORDERAB LES Final Result [facility] [place] [place] [address] * GTT 100gm 1hr gestational diagnostic (05/29/2024 6:17 AM CLINICAL RESEARCH TECHNICIAN) GTT 100g 1h gest 164 <=179 mg/dL Blood 05/29/2024 6:17 AM CLINICAL RESEARCH TECHNICIAN 05/29/2024 6:37 AM CLINICAL RESEARCH TECHNICIAN Narrative [facility] - 05/29/2024 7:03 AM CLINICAL RESEARCH TECHNICIAN Fasting at least 8 hours prior Jake Moore MD LAB BLOOD ORDERAB LES Final Result Performing Organization Address [facility] [place] [address] * (ABNORMAL) GTT 100gm fasting gestational diagnostic (05/29/2024 5:13 AM CLINICAL RESEARCH TECHNICIAN) GTT 100g fasting gest 106(H) <=94 mg/dL Comment: Interpretive data 100 gram 3 hour Gestational Diabetes Diagnostic Diagnostic criteria require that 2 or more of the following criteria be met: Fasting: > or = to 95 mg/dL 1 hour: > or = to 180 mg/dL 2 hour: > or = to 155 mg/dL 3 hour: > or = to 140 mg/dL Reference Interval Info: [place] Medel,et al. ErrolIssac Compared with National Diabetes Data Group Criteria for Diagnosing Gestational Diabetes. Obstetrics and Gynecology 2016:127 (5): 893-898. Diabetes Care 2020; 43(Suppl 1):S14-31 Current interpretive data was last revised 2020. Blood 05/29/2024 5:13 AM CLINICAL RESEARCH TECHNICIAN 05/29/2024 5:28 AM CLINICAL RESEARCH TECHNICIAN Narrative [facility] [facility] - 05/29/2024 5:55 AM CLINICAL RESEARCH TECHNICIAN Fasting at least 8 hours prior Jake Moore MD LAB BLOOD ORDERAB LES Final Result Performing Organization Address City/[facility] Co de Phone Number [facility] [place] [address] * (ABNORMAL) CBC without differential (05/29/2024 5:13 AM CLINICAL RESEARCH TECHNICIAN) Pathologist [facility] WBC 17.1(H) 3.8 - 9.9 K/cumm Hgb 11.7(L) 11.9 - 15.5 g/dL [facility] Hct 34.5(L) 35.6 - 45.5 % [facility] Plt 256 150 - 400 K/cumm [facility] MPV 10.0 9.1 - 12.3 fL [facility] RBC 3.73(L) 3.90 - 5.20 M/cumm [facility] MCV 92.5 81.3 - 96.4 fL [facility] MCH 31.4 27.1 - 33.3 pg [facility] MCHC 33.9 32.3 - 35.7 g/dL [facility] RDW CV 14.0 11.1 - 14.9 % [facility] RDW SD 46.9 35.7 - 48.1 fL [facility] NRBC abs 0.00 0.00 - 0.01 K/cumm [facility] Blood 05/29/2024 5:13 AM CLINICAL RESEARCH TECHNICIAN 05/29/2024 5:28 AM CLINICAL RESEARCH TECHNICIAN us Jake Moore MD LAB BLOOD ORDERAB LES Final Result Performing Organization Address City/[facility]/ZIP Co de Phone Number [facility] Department [place] [address] * POCT glucose (05/29/2024 1:56 AM CLINICAL RESEARCH TECHNICIAN) Pathologist [facility] Glucose, POC 113 70 - 199 mg/dL Blood 05/29/2024 1:56 AM CLINICAL RESEARCH TECHNICIAN 05/29/2024 1:56 AM CLINICAL RESEARCH TECHNICIAN Jake Moore MD LAB POCT ORDERABL ES - DEVICE Final Result Performing Organization Address City/[facility]/ZIP Co de Phone Number [facility] Department [place] [address] * POCT glucose (05/28/2024 8:31 PM CLINICAL RESEARCH TECHNICIAN) Glucose, POC 169 70 - 199 mg/dL Blood 05/28/2024 8:31 PM CLINICAL RESEARCH TECHNICIAN 05/28/2024 8:31 PM CLINICAL RESEARCH TECHNICIAN Jake Moore MD LAB POCT ORDERABL ES - DEVICE Final Result Performing Organization Address [facility] de Phone Number [facility] [place] [address] * POCT glucose (05/28/2024 12:28 PM CLINICAL RESEARCH TECHNICIAN) Glucose, POC 129 70 - 199 mg/dL Comment:Pre Meal Glucose comment 1 Pre Meal [facility] Blood 05/28/2024 12:2 8 PM CLINICAL RESEARCH TECHNICIAN 05/28/2024 12:28 PM CLINICAL RESEARCH TECHNICIAN Jake Moore MD LAB POCT ORDERABL ES - DEVICE Final Result Performing Organization Address [facility] de Phone Number CATALINO [facility] [employer] [place] [address] * US Ob 14 Weeks Or Over (05/28/2024 9:41 AM CLINICAL RESEARCH TECHNICIAN) [facility] Fetus# [id number] VIEWPOINT Estimated Weight 1,123 g&grams VIEWPOINT Placenta Details anterior, Previa-no, no placental masses VIEWPOINT Presentation Breech VIEWPOINT Anatomical Region Laterality Modality Abdomen N/A Ultrasound 05/28/2024 9:42 AM CLINICAL RESEARCH TECHNICIAN Impressions 05/28/2024 11:22 AM CLINICAL RESEARCH TECHNICIAN IUP - 27w 3d per current biometry No structural malformations are apparent but the exam is limited by pt discomfort and position. The anomaly screen is incomplete as above. Breech presentation. APU team notified. Narrative Procedure Note Donald Simpson MD - 05/28/2024 IMPRESSION: IUP - 27w 3d per current biometry No structural malformations are apparent but the exam is limited bypt discomfort and position. The anomaly screen is incomplete asabove. Breech presentation. [facility] team notified. Jake Moore MD IMG OB US PROCEDU RES Final Result * (ABNORMAL) GTT 50gm 1hr gestational screen (05/28/2024 6:16 AM CLINICAL RESEARCH TECHNICIAN) GTT 50g gest screen 242(H) <=140 mg/dL Comment: Interpretive Data Used for suspected gestational diabetes. The screening test uses 50 grams of glucose with sample obtained 1 hr later. Normal range: < 140 mg/dL. A glucose value of >140 mg/dL generally indicates the need for a full diagnostic tolerance test. Reference Interval Info: Diabetes Care 2005, Vol 28. Supplement 1,S37-S42. Report of the Expert Committee on the Diagnosis and Classification of Diabetes Mellitus. Diabetes Care 2020; 43(Supplement 1):S14-31. Current interpretive data was last revised on 2020. Blood 05/28/2024 6:16 AM CLINICAL RESEARCH TECHNICIAN 05/28/2024 6:28 AM CLINICAL RESEARCH TECHNICIAN Result [facility] Jake Moore MD LAB BLOOD ORDERAB LES Final Result [facility] Department [place] [address] * (ABNORMAL) CBC without differential (05/28/2024 6:16 AM CLINICAL RESEARCH TECHNICIAN) WBC 17.0(H) 3.8 - 9.9 K/cumm Hgb 10.8(L) 11.9 - 15.5 g/dL [facility] Hct 32.0(L) 35.6 - 45.5 % [facility] Plt 253 150 - 400 K/cumm [facility] MPV 9.9 9.1 - 12.3 fL [facility] RBC 3.44(L) 3.90 - 5.20 M/cumm [facility] MCV 93.0 81.3 - 96.4 fL [facility] MCH 31.4 27.1 - 33.3 pg [facility] MCHC 33.8 32.3 - 35.7 g/dL [facility] RDW CV 14.0 11.1 - 14.9 % [facility] RDW SD 47.3 35.7 - 48.1 fL [facility] NRBC abs 0.00 0.00 - 0.01 K/cumm [facility] Blood 05/28/2024 6:16 AM CLINICAL RESEARCH TECHNICIAN 05/28/2024 6:28 AM CLINICAL RESEARCH TECHNICIAN Jake Moore MD LAB BLOOD ORDERAB LES Final Result Performing Organization Address [facility] Co de Phone Number [facility] Department [place] [employer] [place] [address] * Group B streptococcal culture Vaginal/Rectal (05/27/2024 9:43 PM CLINICAL RESEARCH TECHNICIAN) Report Final Report: Negative Vaginal/Rectal 05/27/2024 9: 43 PM CLINICAL RESEARCH TECHNICIAN 05/27/2024 10:48 PM CLINICAL RESEARCH TECHNICIAN Narrative [facility] - 05/30/2024 9:47 PM CLINICAL RESEARCH TECHNICIAN Testing performed by [facility] ([phone]). Jake Moore MD LAB MICROBIOLOGY - GENERAL ORDERABLES Final Result Performing Organization Address City/[facility]/ZIP Co de Phone Number [facility] [place] [employer] [place] [address] * N. gonorrhoeae/C. trachomatis Amplification Urine (05/27/2024 9:42 PM CLINICAL RESEARCH TECHNICIAN) C. trachomatis Not Detected Not Detected [facility] N. gonorrhoeae Not Detected Not Detected [facility] Comment: Interpretive Data This assay detects Chlamydia trachomatis and Neisseria gonorrhoeae by nucleic acid amplification testing (NAAT). This assay has been cleared by the [place] Food and Drug administration. The performance characteristics of this test have been verified by the [facility] laboratory. The performance characteristics of this test have not been evaluated in individuals less than 14 years of age. Current Interpretive Data last revised 2023. Urine (None) 05/27/2024 9:42 PM CLINICAL RESEARCH TECHNICIAN 05/27/2024 10:08 PM CLINICAL RESEARCH TECHNICIAN Jake Moore MD LAB MICROBIOLOGY - GENERAL ORDERABLES Final Result Performing Organization Address [facility] Co de Phone Number CATALINO [facility] [place] [address] [facility] * Trichomonas vaginalis PCR Urine (05/27/2024 9:42 PM CLINICAL RESEARCH TECHNICIAN) Trichomonas DNA Not Detected Not Detected [facility] Comment: Interpretive Data This assay detects Trichomonas vaginalis by nucleic acid amplification testing (NAAT). This assay has been cleared by the [place] Food and Drug administration. The performance characteristics of this test have been verified by the [facility] laboratory. Excess blood in specimens may be inhibitory and result in false negative results. The performance of this test has not been evaluated in women or individuals less than 18 years of age. Current Interpretive Data last revised 2023. Urine 05/27/2024 9:42 PM CLINICAL RESEARCH TECHNICIAN 05/27/2024 10:08 PM CLINICAL RESEARCH TECHNICIAN Jake Moore MD LAB MICROBIOLOGY - GENERAL ORDERABLES Final Result Performing Organization Address City/[facility] Co de Phone Number CATALINO [facility] [place] [address] [facility] * Check Sample (05/27/2024 9:42 PM CLINICAL RESEARCH TECHNICIAN) ABO Rh O Positive [facility] HCLL OTHER 05/27/2024 9:42 PM CLINICAL RESEARCH TECHNICIAN 05/27/2024 10:30 PM CLINICAL RESEARCH TECHNICIAN Jake Moore MD LAB BLOOD ORDERAB LES Final Result Performing Organization Address [facility] de Phone Number [facility] [place] [address] [facility] * (ABNORMAL) Protein / creatinine ratio, urine, random (05/27/2024 9:42 PM CLINICAL RESEARCH TECHNICIAN) Pathologist [facility] Protein, ur, quant 21.6 mg/dL Comment: Interpretive Data No reference range established. Current interpretive data was last revised 2018. Creatinine Ur 97.9 mg/dL [facility] Comment: Interpretive Data No reference range established. Current interpretive data was last revised 2018. Protein/creatinin e ratio 220.6(H) 0.0 - 180.0 mg/g CR [facility] Urine 05/27/2024 9:42 PM CLINICAL RESEARCH TECHNICIAN 05/27/2024 10:06 PM CLINICAL RESEARCH TECHNICIAN Jake Moore MD LAB URINE ORDERAB LES Final Result Performing Organization Address [facility] de Phone Number [facility] Department [place] [address] * (ABNORMAL) Drugs of Abuse Screen, Urine with Reflex Confirmation (05/27/2024 9:37 PM CLINICAL RESEARCH TECHNICIAN) Pathologist [facility] Amphetamine, ur Not Detected CutOff 500ng/mL Comment: Interpretive Data - Amphetamines: Samples containing greater than 500 ng/mL d-methamphetamine or other cross-reacting amphetamine compounds are reported as positive. Amphetamine immunoassays are subject to significant false positive rates due to cross-reactivity of non-amphetamine drugs. Confirmatory testing required for definitive results. Current Interpretive Data was last reviewed 2022. Barbiturates, ur Not Detected CutOff 200ng/mL [facility] Comment: Interpretive Data - Barbiturates: Samples containing greater than 200 ng/mL secobarbital or other cross-reacting barbiturate compounds are reported as positive. False positive and false negative results are possible. Confirmatory testing required for definitive results. Current Interpretive Data was last reviewed 2022. Benzodiazepines, ur Not Detected CutOff 100ng/mL [facility] Comment: Interpretive Data - Benzodiazepines: Samples containing greater than 100 ng/mL nordiazepam or other cross-reacting compounds are reported as positive. False positive and false negative results are possible. Confirmatory testing required for definitive results. Current Interpretive Data was last reviewed 2022. Cannabinoids, ur Screen Positive, presumptive (A) CutOff 50 ng/mL [facility] Comment: Interpretive Data - Cannabinoids: Samples containing greater than 50 ng/mL delta-9 THC -COOH or other cross- reacting compounds are reported as positive. False positive and false negative results are possible. Confirmatory testing required for definitive results. Current Interpretive Data was last reviewed 2022. Cocaine, ur Not Detected CutOff 150ng/mL [facility]ERN[facility] Comment: Interpretive Data - Cocaine: Samples containing greater than 150 ng/mL benzoylecgonine or other cross- reacting compounds are reported as positive. False positive and false negative results are possible. Confirmatory testing required for definitive results. Current Interpretive Data was last reviewed 2022. Fentanyl, Ur Not Detected CutOff 5 ng/mL [facility] Comment: Interpretive Data - Fentanyl: Samples containing greater than 5 ng/mL norfentanyl, fentanyl, or other cross-reacting fentanyl compounds are reported as positive. False positive and false negative results are possible. Confirmatory testing required for definitive results. Current Interpretive Data was last reviewed 2023. Methadone, ur Not Detected CutOff 300ng/mL [facility] Comment: Interpretive Data - Methadone: Samples containing greater than 300 ng/mL d,l-methadone or other cross-reacting compounds are reported as positive. False positive and false negative results are possible. Confirmatory testing required for definitive results. Current Interpretive Data was last reviewed 2022. Opiates, ur Not Detected CutOff 300ng/mL [facility] Comment: Interpretive Data - Opiates: Samples containing greater than 300 ng/mL morphine or other cross-reacting compounds are reported as positive. False positive and false negative results are possible. Confirmatory testing required for definitive results. Current Interpretive Data was last reviewed 2022. Oxycodone, ur Not Detected CutOff 100ng/mL [facility] Comment: Interpretive Data - Oxycodone: Samples containing greater than 100 ng/mL oxycodone or other cross-reacting compounds are reported as positive. False positive and false negative results are possible. Confirmatory testing required for definitive results. Current Interpretive Data was last reviewed 2022. Phencyclidine, ur Not Detected CutOff 25 ng/mL [facility] Comment: Interpretive Data - Phencyclidine: Samples containing greater than 25 ng/mL phencyclidine or other cross-reacting compounds are reported as positive. False positive and false negative results are possible. Confirmatory testing required for definitive results. Current Interpretive Data was last reviewed 2022. Urine Creatinine 98 mg/dL [facility] Comment: Interpretive Data Urine Creatinine: < 10 mg/dL is extremely dilute = or > 10 but < 20 mg/dL is dilute = or > 20 mg/dL is normal Current Interpretive Data was last revised on 2017. Urine 05/27/2024 9:37 PM CLINICAL RESEARCH TECHNICIAN 05/27/2024 10:04 PM CLINICAL RESEARCH TECHNICIAN Narrative [facility] - 05/27/2024 10:38 PM CLINICAL RESEARCH TECHNICIAN Drug of Abuse screening is performed by immunoassay for medical purposes only. This is not to be used for Pain Management purposes. If Detected, confirmation testing will be performed for Amphetamines, Cocaine, Fentanyl, Methadone, Opiates, Oxycodone or Phencyclidine. Jake Moore MD LAB URINE ORDERAB LES Final Result [facility] Department [place] [address] * (ABNORMAL) Hemoglobin analysis by electrophoresis (05/27/2024 8:29 PM CLINICAL RESEARCH TECHNICIAN) RBC 3.20(L) 3.90 - 5.20 M/cumm Hgb 10.0(L) 11.9 - 15.5 g/dL [facility] MCV 92.8 81.3 - 96.4 fL [facility] Rdw 14.1 11.1 - 14.9 % [facility] Hgb electrophores is, interp Normal Hemoglobin Pattern - For Age [facility] Hgb A 97.6 96.0 - 98.5 % [facility] Hgb A2 2.4 1.5 - 3.2 % [facility] Hgb F <0.4 0.0 - 0.9 % [facility] Blood 05/27/2024 8:29 PM CLINICAL RESEARCH TECHNICIAN 05/27/2024 8:46 PM CLINICAL RESEARCH TECHNICIAN us Smita Erazo MD LAB BLOOD ORDERABLES Final Result Performing Organization Address City/[facility]/ZIP Co de Phone Number [facility] [place] [employer] [place] [address] * eGFR (05/27/2024 8:17 PM CLINICAL RESEARCH TECHNICIAN) eGFR >90 >=60 mL/min/1. 73 m2 Comment: Interpretive Data Reference Interval Normal >/= 90 mL/min/1.73m2 Mildly decreased* 60 - 89 mL/min/1.73m2 Mildly to moderately decreased 45 - 59 mL/min/1.73m2 Moderately to severely decreased 30 - 44 mL/min/1.73m2 Severely decreased 15 - 29 mL/min/1.73m2 Kidney Failure < 15 mL/min/1.73m2 *Relative to young adult level Estimated glomerular filtration rate is determined by the 2020 CKD-EPI equation recommended by the National Kidney Foundation (A Unifying Approach to GFR Estimation: Recommendations of the NKF-ASK Task Force on Reassessing the Inclusion of Race in Diagnosing Kidney Disease, JASN 2020). The CKD-EPI equation should not be used for patients with unstable renal function and has not been validated in children and those over 70. Current interpretive data was last reviewed 2021. Blood 05/27/2024 8:17 PM CLINICAL RESEARCH TECHNICIAN 05/27/2024 8:28 PM CLINICAL RESEARCH TECHNICIAN us Jake Moore MD LAB BLOOD ORDERAB LES Final Result Performing Organization Address City/[facility]/ZIP Co de Phone Number [facility] Department [place] [employer] [place] [address] * HIV 1/2 Antibody plus p24 Antigen Blood (05/27/2024 8:17 PM CLINICAL RESEARCH TECHNICIAN) Pathologist [facility] HIV 1/2 ab + p24 ag Nonreactive Nonreactive Comment:Nonreactive for HIV- 1 antigen and HIV-1/HIV-2 antibodies. No laboratory evidence of HIV infection. If acute HIV infection is suspected, consider testing for HIV-1 RNA. Current interpretive data was last revised on 21. Blood 05/27/2024 8:17 PM CLINICAL RESEARCH TECHNICIAN 05/27/2024 8:28 PM CLINICAL RESEARCH TECHNICIAN Jake Moore MD LAB MICROBIOLOGY - GENERAL ORDERABLES Final Result Performing Organization Address [facility] de Phone Number [facility] [employer] [place] [address] * Hepatitis C antibody Blood (05/27/2024 8:17 PM CLINICAL RESEARCH TECHNICIAN) Pathologist [facility] Hep C Ab Nonreactive Nonreactive Comment:Antibodies to HCV no t detected. Does NOT exclude the possibility of recent exposure to HCV. Current interpretive data was last revised on 21 Blood 05/27/2024 8:17 PM CLINICAL RESEARCH TECHNICIAN 05/27/2024 8:28 PM CLINICAL RESEARCH TECHNICIAN Jake Moore MD LAB MICROBIOLOGY - GENERAL ORDERABLES Final Result Performing Organization Address [facility] Co de Phone Number [facility] [place] [employer] [place] [address] * Hepatitis B core antibody, IgM Blood (05/27/2024 8:17 PM CLINICAL RESEARCH TECHNICIAN) [facility] Hep B core IgM Nonreactive Nonreactive Blood 05/27/2024 8:17 PM CLINICAL RESEARCH TECHNICIAN 05/27/2024 8:28 PM CLINICAL RESEARCH TECHNICIAN Jake Moore MD LAB MICROBIOLOGY - GENERAL ORDERABLES Final Result Performing Organization Address [facility]/[place] [address] * (ABNORMAL) Rubella IgG antibody Blood (05/27/2024 8:17 PM CLINICAL RESEARCH TECHNICIAN) Pathologist [facility] Rubella IgG Nonreactiv e(A) Comment:Nonreactive: No dete ctable antibody to rubella. Such individuals are presumed to be uninfected with rubella and to be susceptible to primary infection. Blood 05/27/2024 8:17 PM CLINICAL RESEARCH TECHNICIAN 05/27/2024 8:32 PM CLINICAL RESEARCH TECHNICIAN Jake Moore MD LAB MICROBIOLOGY - GENERAL ORDERABLES Final Result Performing Organization Address [facility] [place] [address] * RPR Blood (05/27/2024 8:17 PM CLINICAL RESEARCH TECHNICIAN) Pathologist [facility] RPR Nonreactive Nonreactive Blood 05/27/2024 8:17 PM CLINICAL RESEARCH TECHNICIAN 05/27/2024 8:32 PM CLINICAL RESEARCH TECHNICIAN Jake Moore MD LAB MICROBIOLOGY - GENERAL ORDERABLES Final Result Performing Organization Address City/[facility] Co de Phone Number [facility] Department [place] [address] * Hepatitis B surface antibody (immune status) Blood (05/27/2024 8:17 PM CLINICAL RESEARCH TECHNICIAN) Pathologist [facility] HBsAb (immune status) Reactive Comment:This result is consi stent with immunity to Hepatitis B Virus when used in the setting of routine screening. Current interpretive data was last revised on 21 HBsAb (immune status) index 869.0 mIUnits/m L [facility] Blood 05/27/2024 8:17 PM CLINICAL RESEARCH TECHNICIAN 05/27/2024 8:28 PM CLINICAL RESEARCH TECHNICIAN Jake Moore MD LAB MICROBIOLOGY - GENERAL ORDERABLES Final Result Performing Organization Address [facility]/ZIP Co de Phone Number [facility] Department [place] [address] * (ABNORMAL) CBC without differential (05/27/2024 8:17 PM CLINICAL RESEARCH TECHNICIAN) WBC 22.4(H) 3.8 - 9.9 K/cumm Hgb 10.7(L) 11.9 - 15.5 g/dL [facility] Hct 31.9(L) 35.6 - 45.5 % [facility] Plt 250 150 - 400 K/cumm [facility] MPV 9.8 9.1 - 12.3 fL [facility] RBC 3.47(L) 3.90 - 5.20 M/cumm [facility] MCV 91.9 81.3 - 96.4 fL [facility] MCH 30.8 27.1 - 33.3 pg [facility] MCHC 33.5 32.3 - 35.7 g/dL [facility] RDW CV 14.0 11.1 - 14.9 % [facility] RDW SD 46.6 35.7 - 48.1 fL [facility] NRBC abs 0.00 0.00 - 0.01 K/cumm [facility] Blood 05/27/2024 8:17 PM CLINICAL RESEARCH TECHNICIAN 05/27/2024 8:32 PM CLINICAL RESEARCH TECHNICIAN Jake Moore MD LAB BLOOD ORDERAB LES Final Result [facility] Department [place] [address] * Type and screen (05/27/2024 8:17 PM CLINICAL RESEARCH TECHNICIAN) ABO Rh O Positive Jas, indirect Negative [facility] Blood 05/27/2024 8:17 PM CLINICAL RESEARCH TECHNICIAN 05/27/2024 8:29 PM CLINICAL RESEARCH TECHNICIAN Narrative [facility] - 05/27/2024 9:45 PM CLINICAL RESEARCH TECHNICIAN Has the patient had Daratumumab or Isatuximab in the past 6 months?->Unknown Jake Moore MD LAB BLOOD BANK TE ST ORDERABLES Final Result Performing Organization Address [facility] Co de Phone Number [facility] Department [place] [address] * Varicella Zoster IgG antibody Blood (05/27/2024 8:17 PM CLINICAL RESEARCH TECHNICIAN) [facility] VZV IgG Reactive Reactive Comment:Reactive: Results guerrero ggest response to immunization or prior exposure to the virus. Blood 05/27/2024 8:17 PM CLINICAL RESEARCH TECHNICIAN 05/27/2024 8:32 PM CLINICAL RESEARCH TECHNICIAN Result [facility] Jake Moore MD LAB MICROBIOLOGY - GENERAL ORDERABLES Final Result Performing Organization Address [facility] Phone Number [facility] [place] [address] * (ABNORMAL) Hemoglobin A1c (05/27/2024 8:17 PM CLINICAL RESEARCH TECHNICIAN) [facility] Hgb A1C 5.8(H) 4.0 - 5.6 % Estimated Average Glucose 120 mg/dL [facility] Comment: The ADA recommends reporting an estimated Average Glucose (eAG) with all Hemoglobin A1c results using the equation derived from a study of 507 normal and diabetic adults. Minority populations were underrepresented and children were not included. (Diabetes Care 2020; 43(S1): S66-S76). The eAG is not equivalent to a fasting glucose. Blood 05/27/2024 8:17 PM CLINICAL RESEARCH TECHNICIAN 05/27/2024 8:35 PM CLINICAL RESEARCH TECHNICIAN Result [facility] Jake Moore MD LAB BLOOD ORDERAB LES Final Result Performing Organization Address [facility] de Phone Number [facility] [place] [address] * (ABNORMAL) Comprehensive metabolic panel (05/27/2024 8:17 PM CLINICAL RESEARCH TECHNICIAN) Sodium 137 135 - 145 mmol/L Potassium, pl 3.5 3.3 - 4.9 mmol/L [facility] Chloride 103 97 - 110 mmol/L [facility] CO2 23 22 - 32 mmol/L [facility] Anion gap 11 2 - 15 mmol/L [facility] BUN 6 6 - 25 mg/dL [facility] Creatinine 0.44(L) 0.60 - 1.10 mg/dL [facility] Glucose 126 70 - 199 mg/dL [facility] Comment: Interpretive Data Fasting glucose >/= 126 mg/dl is diagnostic for diabetes. Fasting is defined as no caloric intake for at least 8 hours. Fasting glucose between 100 mg/dl to 125 mg/dl is diagnostic of prediabetes. In a patient with classic symptoms of hyperglycemia or hyperglycemic crisis, a random glucose >/= 200 mg/dl is diagnostic for diabetes. In the absence of unequivocal hyperglycemia, results should be confirmed by repeat testing. The classification and Diagnosis of Diabetes Diabetes Care 2021; 46: S19-S40. Current interpretive data was last revised 2022. Calcium 8.3(L) 8.5 - 10.3 mg/dL [facility] Bilirubin, total 0.2 0.1 - 1.2 mg/dL [facility] Protein, pl 6.0(L) 6.5 - 8.5 g/dL [facility] Albumin 3.0(L) 3.5 - 5.0 g/dL [facility] Alk phos 70 40 - 130 Units/L [facility] ALT 24 7 - 45 Units/L [facility] AST 21 10 - 45 Units/L [facility] Blood 05/27/2024 8:17 PM CLINICAL RESEARCH TECHNICIAN 05/27/2024 8:28 PM CLINICAL RESEARCH TECHNICIAN Jake Moore MD LAB BLOOD ORDERAB LES Final Result [facility] Department [place] [address] * US Ob Limited (05/27/2024 4:19 PM CLINICAL RESEARCH TECHNICIAN) Anatomical Region Laterality Modality Abdomen N/A Ultrasound 05/27/2024 5:19 PM CLINICAL RESEARCH TECHNICIAN Narrative 05/27/2024 5:26 PM CLINICAL RESEARCH TECHNICIAN EXAM DESCRIPTION: US OB LIMITED REASON FOR STUDY: for baseline, for baseline TECHNIQUE: Limited transabdominal grayscale ultrasound for obstetrical evaluation. COMPARISON: None FINDINGS: Clinical gestational age: 37 weeks, 0 days Clinical estimated Due Date: 06/17/2024 number: Single Presentation: Breech Placenta location: Anterior Amniotic fluid: 14.4 cm heart rate: 158 bpm measurements: Biparietal diameter: 6.5 cm ( 26 weeks, 2 days ) Head circumference: 24.9 cm ( 27 weeks, 0 days ) Abdominal circumference: 22.8 cm ( 27 weeks, 1 day ) Femur length: 5.0 cm ( 26 weeks, 6 days ) Ratios: FL/AC: 21.97 (20-24) HC/AC: 1.10 ( 1.05 - 1.22 ) Gestational age by this ultrasound: 26 weeks, 6 days PATRIC by this ultrasound: 08/27/2024 Estimated weight by this ultrasound: 1010 g EFW percentile (based on LMP ): Less than 3 % Cervical length: 3.2 cm IMPRESSION: Single live intrauterine with an estimated gestational age by this ultrasound of 26 weeks, 6 days, giving an estimated date of delivery of 08/27/2024. The estimated gestational age given by LMP is 37 weeks, 0 days. Correlate clinically for intrauterine growth retardation versus wrong dates by LMP, with the latter being more likely given the consistent dates of all measurements. THIS IS AN ELECTRONICALLY VERIFIED FINAL REPORT 05/27/2024 5:26 PM - Electronically signed by Chetan Andrea M.D. LL T: Report ID: [id number] Reading Location: [id number] Procedure Note Chetan Andrea MD - 05/27/2024 EXAM DESCRIPTION: US OB LIMITED REASON FOR STUDY: for baseline, for baseline TECHNIQUE: Limited transabdominal grayscale ultrasound for obstetrical evaluation. COMPARISON: None FINDINGS: Clinical gestational age: 37 weeks, 0 days Clinical estimated Due Date: 06/17/2024 number: Single Presentation: Breech Placenta location: Anterior Amniotic fluid: 14.4 cm heart rate: 158 bpm measurements: Biparietal diameter: 6.5 cm ( 26 weeks, 2 days ) Head circumference: 24.9 cm ( 27 weeks, 0 days ) Abdominal circumference: 22.8 cm ( 27 weeks, 1 day ) Femur length: 5.0 cm ( 26 weeks, 6 days ) Ratios: FL/AC: 21.97 (20-24) HC/AC: 1.10 ( 1.05 - 1.22 ) Gestational age by this ultrasound: 26 weeks, 6 days PATRIC by this ultrasound: 08/27/2024 Estimated weight by this ultrasound: 1010 g EFW percentile (based on LMP ): Less than 3 % Cervical length: 3.2 cm IMPRESSION: Single live intrauterine with an estimatedgestational age by this ultrasound of 26 weeks, 6 days, giving an estimated date of delivery of 08/27/2024. The estimated gestational age given by LMP is 37 weeks, 0 days. Correlate clinically for intrauterine growth retardation versus wrong dates by LMP, with the latter being more likely given the consistent dates of all measurements. THIS IS AN ELECTRONICALLY VERIFIED FINAL REPORT 05/27/2024 5:26 PM - Electronically signed by Chetan Andrea M.D. T: Report ID: [id number] Reading Location: [place] [address] us Blake Taveras MD IMG OB US PROCEDURES Fi nal Result * US Kidney Limited (05/27/2024 4:05 PM CLINICAL RESEARCH TECHNICIAN) Anatomical Region Laterality Modality Kidney N/A Ultrasound 05/27/2024 5:25 PM CLINICAL RESEARCH TECHNICIAN Narrative 05/27/2024 5:28 PM CLINICAL RESEARCH TECHNICIAN EXAM DESCRIPTION: US RENAL LIMITED REASON FOR STUDY: LUQ abdominal pain TECHNIQUE: Ultrasound of the kidneys and urinary bladder was performed with grayscale imaging. COMPARISON: None FINDINGS: RIGHT KIDNEY: The right kidney measures 11.3 cm in length. There is no hydronephrosis. There is normal cortical thickness and echogenicity. LEFT KIDNEY: The left kidney measures 13.1 cm in length. There is no hydronephrosis. There is normal cortical thickness and echogenicity. URINARY BLADDER: Not imaged. OTHER: No other additional findings. IMPRESSION: Normal renal ultrasound. THIS IS AN ELECTRONICALLY VERIFIED FINAL REPORT 05/27/2024 5:28 PM - Electronically signed by Chetan Andrea M.D. T: Report ID: [id number] Reading Location: [place] [address] Procedure Note Chetan Andrea MD - 05/27/2024 EXAM DESCRIPTION: US RENAL LIMITED REASON FOR STUDY: LUQ abdominal pain TECHNIQUE: Ultrasound of the kidneys and urinary bladder was performedwith grayscale imaging. COMPARISON: None FINDINGS: RIGHT KIDNEY: The right kidney measures 11.3 cm in length.There is no hydronephrosis. There is normal cortical thickness and echogenicity. LEFT KIDNEY: The left kidney measures 13.1 cm in length. There is no hydronephrosis. There is normal cortical thickness and echogenicity. URINARY BLADDER: Not imaged. OTHER: No other additional findings. IMPRESSION: Normal renal ultrasound. THIS IS AN ELECTRONICALLY VERIFIED FINAL REPORT 05/27/2024 5:28 PM - Electronically signed by Chetan Andrea M.D. T: Report ID: [id number] Reading Location: [id number] us Blake Taveras MD IMG US PROCEDURES Final Result * US RUQ (05/27/2024 4:00 PM CLINICAL RESEARCH TECHNICIAN) Anatomical Region Laterality Modality Abdomen N/A Ultrasound 05/27/2024 5:16 PM CLINICAL RESEARCH TECHNICIAN Narrative 05/27/2024 5:19 PM CLINICAL RESEARCH TECHNICIAN EXAM DESCRIPTION: US RUQ REASON FOR STUDY: ruq pain, is there cholecystits,appendicitiis, left flank pain TECHNIQUE: Ultrasound of the right upper quadrant of the abdomen was performed with grayscale and color doppler. COMPARISON: None FINDINGS: PANCREAS: Visualized portions of the pancreas are within normal limits. Portions of the pancreatic body and tail are obscured due to bowel gas. LIVER: The liver appears normal in echotexture and echogenicity. No focal lesion identified. The main portal vein is patent with antegrade flow. GALLBLADDER: The gallbladder appears unremarkable. No cholelithiasis. No gallbladder wall thickening or pericholecystic fluid. No positive sonographic [place] sign reported. BILIARY: There is no intrahepatic or extrahepatic biliary ductal dilatation. Common bile duct measures 6 mm in diameter. RIGHT KIDNEY: Normal size. Normal echogenicity. No solid mass or cyst. No hydronephrosis. Measures 11.3 cm in length. OTHER: No other significant findings. IMPRESSION: No acute abnormality. THIS IS AN ELECTRONICALLY VERIFIED FINAL REPORT 05/27/2024 5:19 PM - Electronically signed by Chetan ROYAL T: Report ID: [id number] Reading Location: [place] [address] Procedure Note Chetan Andrea MD - 05/27/2024 EXAM DESCRIPTION: US RUQ REASON FOR STUDY: ruq pain, is there cholecystits,appendicitiis, leftflank pain TECHNIQUE: Ultrasound of the right upper quadrant of the abdomen wasperformed with grayscale and color doppler. COMPARISON: None FINDINGS: PANCREAS: Visualized portions of the pancreas are withinnormal limits. Portions of the pancreatic body and tail are obscured due to bowel gas. LIVER: The liver appears normal in echotexture and echogenicity. Nofocal lesion identified. The main portal vein is patent with antegrade flow. GALLBLADDER: The gallbladder appears unremarkable. No cholelithiasis.No gallbladder wall thickening or pericholecystic fluid. No positivesonographic [place] sign reported. BILIARY: There is no intrahepatic or extrahepatic biliary ductaldilatation. Common bile duct measures 6 mm in diameter. RIGHT KIDNEY: Normal size. Normal echogenicity. No solid mass or cyst.No hydronephrosis. Measures 11.3 cm in length. OTHER: No other significant findings. IMPRESSION: No acute abnormality. THIS IS AN ELECTRONICALLY VERIFIED FINAL REPORT 05/27/2024 5:19 PM - Electronically signed by Chetan ROYAL T: Report ID: [id number] Reading Location: [id number] Blake Taveras MD [facility] US PROCEDURES Final Result * US Appendix (05/27/2024 3:45 PM CLINICAL RESEARCH TECHNICIAN) Anatomical Region Laterality Modality Abdomen N/A Ultrasound 05/27/2024 5:28 PM CLINICAL RESEARCH TECHNICIAN Narrative 05/27/2024 5:29 PM CLINICAL RESEARCH TECHNICIAN EXAM DESCRIPTION: US APPENDIX REASON FOR STUDY: RLQ abdominal pain TECHNIQUE: Grayscale imaging performed of the right lower quadrant with additional compression maneuvers. COMPARISON: None FINDINGS: APPENDIX: Not visualized. BOWEL: Active peristalsis with fluid in the bowel. COMPRESSION MANEUVERS: No rebound pain with compression. OTHER: No other significant finding. No free fluid is seen. IMPRESSION: Appendix not identified. Active peristalsis. THIS IS AN ELECTRONICALLY VERIFIED FINAL REPORT 05/27/2024 5:29 PM - Electronically signed by Chetan Andrea M.D. T: Report ID: [id number] Reading Location: [id number] Procedure Note Chetan Andrea MD - 05/27/2024 EXAM DESCRIPTION: US APPENDIX REASON FOR STUDY: RLQ abdominal pain TECHNIQUE: Grayscale imaging performed of the right lower quadrant with additional compression maneuvers. COMPARISON: None FINDINGS: APPENDIX: Not visualized. BOWEL: Active peristalsis with fluid in the bowel. COMPRESSION MANEUVERS: No rebound pain with compression. OTHER: No other significant finding. No free fluid is seen. IMPRESSION: Appendix not identified. Active peristalsis. THIS IS AN ELECTRONICALLY VERIFIED FINAL REPORT 05/27/2024 5:29 PM - Electronically signed by Chetan Andrea M.D. T: Report ID: [id number] Reading Location: [id number] Blake Taveras MD [facility] US PROCEDURES Final Result * Influenza A/B, RSV, and COVID-19 PCR Nasopharyngeal (05/27/2024 2:49 PM CLINICAL RESEARCH TECHNICIAN) [facility] COVID-19 RNA Negative Negative Influenza A RNA Negative Negative [facility] Influenza B RNA Negative Negative [facility] RSV RNA Negative Negative [facility] Comment: Interpretive data: Testing performed by [facility]. This test is performed using the [employer] Xpert Xpress CoV-2/Flu/RSV plus assay. This is a multiplex, real-time reverse transcriptase PCR assay intended for the qualitative detection of nucleic acid from SARS-CoV-2, influenza A, influenza B, and respiratory syncytial virus. This assay has been cleared by the [place] Food and Drug administration. The performance characteristics have been verified by the [facility]. Results must be considered in the clinical context, and a negative result does not rule out infection. Interpretive Data last revised 2023 Nasopharyngeal 05/27/2024 2: 49 PM CLINICAL RESEARCH TECHNICIAN 05/27/2024 2:53 PM CLINICAL RESEARCH TECHNICIAN Narrative [facility] - 05/27/2024 3:36 PM CLINICAL RESEARCH TECHNICIAN Is the Patient experiencing symptoms consistent with COVID?->Unknown Martinez Weber MD LAB MICROBIOLOGY - GENERAL ORDERABLES Final Result Performing Organization Address [facility] Co de Phone Number [place] [id number] [facility] [place] [address] * ABO / Rh Confirmation Testing (05/27/2024 2:49 PM CLINICAL RESEARCH TECHNICIAN) [facility] ABO/Rh Confirmation O Positive B Blood 05/27/2024 2:49 PM CLINICAL RESEARCH TECHNICIAN 05/27/2024 2:53 PM CLINICAL RESEARCH TECHNICIAN us Demi PEARSON LAB BLOOD ORDERABLES Final R esult [place] [id number] [facility] [place] [address] MHB * Blood culture Blood Peripheral (05/27/2024 2:49 PM CLINICAL RESEARCH TECHNICIAN) [facility] Report Final Report: No growth Comment:Testing performed by : [facility] [address] [facility], [place]., [address] Blood (Peripheral) 05/27/2024 2:49 PM CLINICAL RESEARCH TECHNICIAN 05/27/2024 6:54 PM CLINICAL RESEARCH TECHNICIAN Narrative [facility] - 06/01/2024 7:00 AM CLINICAL RESEARCH TECHNICIAN From a different site than #1. Draw Blood cultures before administration of Antibiotics Collection->Peripheral 1. Blood cultures are incubated for 4 days on a continuously monitored blood culture system. The first report of a negative culture is issued within 24 hours of receipt of the specimen in the laboratory. 2. Positive culture results are reported as soon as they are detected. 3. The most important factor for detection of microbes in the setting of bloodstream infection is the volume of blood submitted for culture. Failure to collect an optimal blood volume can result in false negative blood cultures. 4. For pediatric patients, the recommended blood volume to collect follows a weight based strategy. See the electronic test catalog for collection instructions. 5. For positive blood cultures, a rapid molecular test may be performed for organism identification using the [employer]lyde ePlex blood culture identification panel for gram positive (BCID-GP) and gram negative (BCID-GN) organisms. This nucleic acid amplification test detects microbial DNA in positive blood culture broth. This assay has been cleared by the [place] Food and Drug Administration and its performance characteristics have been verified by the [facility]. For questions about this culture, contact the Microbiology Laboratory at [phone]. Interpretive data was last revised on 24. Martinez Weber MD LAB MICROBIOLOGY - GENERAL ORDERABLES Final Result [facility] [address] [facility] Department [place] [address] * Sepsis Lactate w/ Reflex (05/27/2024 2:47 PM CLINICAL RESEARCH TECHNICIAN) Sepsis Lactate 1.4 0.7 - 2.0 mmol/L Blood 05/27/2024 2:47 PM CLINICAL RESEARCH TECHNICIAN 05/27/2024 2:50 PM CLINICAL RESEARCH TECHNICIAN Martinez Weber MD LAB BLOOD ORDERABLES Final Result Performing Organization Address [facility]/ZIP Co de Phone Number [facility] [address] [facility] [place] [address] * Blood culture Blood Peripheral (05/27/2024 2:47 PM CLINICAL RESEARCH TECHNICIAN) Report Final Report: No growth Comment:Testing performed by : [facility], [address] [place]., [address] Blood (Peripheral) 05/27/2024 2:47 PM CLINICAL RESEARCH TECHNICIAN 05/27/2024 6:54 PM CLINICAL RESEARCH TECHNICIAN Narrative [facility] - 06/01/2024 7:00 AM CLINICAL RESEARCH TECHNICIAN Draw Blood cultures before administration of Antibiotics Collection->Peripheral 1. Blood cultures are incubated for 4 days on a continuously monitored blood culture system. The first report of a negative culture is issued within 24 hours of receipt of the specimen in the laboratory. 2. Positive culture results are reported as soon as they are detected. 3. The most important factor for detection of microbes in the setting of bloodstream infection is the volume of blood submitted for culture. Failure to collect an optimal blood volume can result in false negative blood cultures. 4. For pediatric patients, the recommended blood volume to collect follows a weight based strategy. See the electronic test catalog for collection instructions. 5. For positive blood cultures, a rapid molecular test may be performed for organism identification using the [employer]de ePlex blood culture identification panel for gram positive (BCID-GP) and gram negative (BCID-GN) organisms. This nucleic acid amplification test detects microbial DNA in positive blood culture broth. This assay has been cleared by the [place] Food and Drug Administration and its performance characteristics have been verified by the [facility]. For questions about this culture, contact the Microbiology Laboratory at [phone]. Interpretive data was last revised on 24. Martinez Weber MD LAB MICROBIOLOGY - GENERAL ORDERABLES Final Result Performing Organization Address City/[facility]/ZIP Co de Phone Number [facility] [address] [facility] Department [place] [employer] [place] [address] * eGFR (05/27/2024 1:14 PM CLINICAL RESEARCH TECHNICIAN) eGFR >90 >=60 mL/min/1. 73 m2 Comment: Interpretive Data Reference Interval Normal >/= 90 mL/min/1.73m2 Mildly decreased* 60 - 89 mL/min/1.73m2 Mildly to moderately decreased 45 - 59 mL/min/1.73m2 Moderately to severely decreased 30 - 44 mL/min/1.73m2 Severely decreased 15 - 29 mL/min/1.73m2 Kidney Failure < 15 mL/min/1.73m2 *Relative to young adult level Estimated glomerular filtration rate is determined by the 2020 CKD-EPI equation recommended by the National Kidney Foundation (A Unifying Approach to GFR Estimation: Recommendations of the NKF-ASK Task Force on Reassessing the Inclusion of Race in Diagnosing Kidney Disease, JASN 2020). The CKD-EPI equation should not be used for patients with unstable renal function and has not been validated in children and those over 70. Current interpretive data was last reviewed 2021. Blood 05/27/2024 1:14 PM CLINICAL RESEARCH TECHNICIAN 05/27/2024 1:18 PM CLINICAL RESEARCH TECHNICIAN us Demi PEARSON LAB BLOOD ORDERABLES Final R esult [facility] [address] [facility] Department [place] [address] * (ABNORMAL) Differential, auto (05/27/2024 1:14 PM CLINICAL RESEARCH TECHNICIAN) [facility] Neutrophil abs 17.2(H) 1.5 - 6.5 K/cumm Imm gran abs 1.4(H) 0.0 - 0.1 K/cumm [facility] Lymphocyte abs 3.2 0.8 - 3.3 K/cumm [facility] Monocyte abs 1.4(H) 0.2 - 0.8 K/cumm [facility] Eosinophil abs 0.2 0.0 - 0.5 K/cumm [facility] Basophil abs 0.1 0.0 - 0.1 K/cumm [facility] Neutrophil pct 73.1 % [facility] Comment: Interpretive Data Percent cell count reference ranges are not reported, since discordance with absolute values may lead to misinterpretation of CBC data. Current Interpretive Data was last revised on 2017. Imm gran pct 5.8 % [facility] Comment: Interpretive Data Percent cell count reference ranges are not reported, since discordance with absolute values may lead to misinterpretation of CBC data. Current Interpretive Data was last revised on 2017. Lymphocyte pct 13.7 % [facility] Comment: Interpretive Data Percent cell count reference ranges are not reported, since discordance with absolute values may lead to misinterpretation of CBC data. Current Interpretive Data was last revised on 2017. Monocyte pct 6.0 % [facility] Comment: Interpretive Data Percent cell count reference ranges are not reported, since discordance with absolute values may lead to misinterpretation of CBC data. Current Interpretive Data was last revised on 2017. Eosinophil pct 0.9 % [facility] Comment: Interpretive Data Percent cell count reference ranges are not reported, since discordance with absolute values may lead to misinterpretation of CBC data. Current Interpretive Data was last revised on 2017. Basophil pct 0.5 % [facility] Comment: Interpretive Data Percent cell count reference ranges are not reported, since discordance with absolute values may lead to misinterpretation of CBC data. Current Interpretive Data was last revised on 2017. Blood 05/27/2024 1:14 PM CLINICAL RESEARCH TECHNICIAN 05/27/2024 1:18 PM CLINICAL RESEARCH TECHNICIAN us Demi PEARSON LAB BLOOD ORDERABLES Final R esult [facility] [address] [facility] Department of Laboratories [place], [place] [id number] * (ABNORMAL) CBC with auto differential (05/27/2024 1:14 PM CLINICAL RESEARCH TECHNICIAN) WBC 23.5(H) 3.8 - 9.9 K/cumm Hgb 12.1 11.9 - 15.5 g/dL [facility] Hct 36.3 35.6 - 45.5 % [facility] Plt 290 150 - 400 K/cumm [facility] MPV 9.7 9.1 - 12.3 fL [facility] RBC 3.91 3.90 - 5.20 M/cumm [facility] MCV 92.8 81.3 - 96.4 fL [facility] MCH 30.9 27.1 - 33.3 pg [facility] MCHC 33.3 32.3 - 35.7 g/dL [facility] RDW CV 14.0 11.1 - 14.9 % [facility] RDW SD 46.8 35.7 - 48.1 fL [facility] NRBC abs 0.00 0.00 - 0.01 K/cumm [facility] Blood 05/27/2024 1:14 PM CLINICAL RESEARCH TECHNICIAN 05/27/2024 1:18 PM CLINICAL RESEARCH TECHNICIAN Demi PEARSON LAB BLOOD ORDERABLES Edited Result - Final Performing Organization Address [facility] Co de Phone Number [address] [place] [address] * ABO/Rh (05/27/2024 1:14 PM CLINICAL RESEARCH TECHNICIAN) ABO/Rh O Positive Blood 05/27/2024 1:14 PM CLINICAL RESEARCH TECHNICIAN 05/27/2024 1:18 PM CLINICAL RESEARCH TECHNICIAN Narrative [facility] - 05/27/2024 1:55 PM CLINICAL RESEARCH TECHNICIAN Has the patient had Daratumumab or Isatuximab in the past 6 months?->Unknown Result [facility] Demi PEARSON LAB BLOOD BANK TEST ORDERABL ES Final Result Performing Organization Address [facility] de Phone Number [address] [employer] [place] [address] * Manual Differential (05/27/2024 1:14 PM CLINICAL RESEARCH TECHNICIAN) Differential Auto RBC morphology Normal [facility] Platelet estimate Automated Count Confirmed [facility] Blood 05/27/2024 1:14 PM CLINICAL RESEARCH TECHNICIAN 05/27/2024 1:18 PM CLINICAL RESEARCH TECHNICIAN Demi PEARSON LAB BLOOD ORDERABLES Final R esult Performing Organization Address [facility] Co de Phone Number [address] [address] * Antibody screen (05/27/2024 1:14 PM CLINICAL RESEARCH TECHNICIAN) Pathologist [facility] Jas, indirect, Gel Interpretation Negative ABSC Blood 05/27/2024 1:14 PM CLINICAL RESEARCH TECHNICIAN 05/27/2024 1:18 PM CLINICAL RESEARCH TECHNICIAN Narrative [facility] - 05/27/2024 1:55 PM CLINICAL RESEARCH TECHNICIAN Has the patient had Daratumumab or Isatuximab in the past 6 months?->Unknown Demi PEARSON LAB BLOOD BANK TEST ORDERABL ES Final Result Performing Organization Address City/[facility]/ZIP Co de Phone Number [address] [address] * Phosphorus (05/27/2024 1:14 PM CLINICAL RESEARCH TECHNICIAN) [facility] Phosphorus, pl 4.2 2.3 - 4.5 mg/dL Blood 05/27/2024 1:14 PM CLINICAL RESEARCH TECHNICIAN 05/27/2024 1:18 PM CLINICAL RESEARCH TECHNICIAN Demi PEARSON LAB BLOOD ORDERABLES Final R esult Performing Organization Address City/[facility]/ZIP Co de Phone Number [address] [address] * Magnesium (05/27/2024 1:14 PM CLINICAL RESEARCH TECHNICIAN) [facility] Magnesium 1.9 1.4 - 2.5 mg/dL Blood 05/27/2024 1:14 PM CLINICAL RESEARCH TECHNICIAN 05/27/2024 1:18 PM CLINICAL RESEARCH TECHNICIAN Demi PEARSON LAB BLOOD ORDERABLES Final R esult Performing Organization Address City/[facility]/ZIP Co de Phone Number [address] [address] * (ABNORMAL) Comprehensive metabolic panel (05/27/2024 1:14 PM CLINICAL RESEARCH TECHNICIAN) [facility] Sodium 136 135 - 145 mmol/L Potassium, pl 4.0 3.3 - 4.9 mmol/L [facility] Chloride 101 97 - 110 mmol/L [facility] CO2 22 22 - 32 mmol/L [facility] Anion gap 13 2 - 15 mmol/L [facility] BUN 8 6 - 25 mg/dL [facility] Creatinine 0.39(L) 0.60 - 1.10 mg/dL [facility] Glucose 91 70 - 199 mg/dL [facility] Comment: Interpretive Data Fasting glucose >/= 126 mg/dl is diagnostic for diabetes. Fasting is defined as no caloric intake for at least 8 hours. Fasting glucose between 100 mg/dl to 125 mg/dl is diagnostic of prediabetes. In a patient with classic symptoms of hyperglycemia or hyperglycemic crisis, a random glucose >/= 200 mg/dl is diagnostic for diabetes. In the absence of unequivocal hyperglycemia, results should be confirmed by repeat testing. The classification and Diagnosis of Diabetes Diabetes Care 2021; 46: S19-S40. Current interpretive data was last revised 2022. Calcium 10.0 8.5 - 10.3 mg/dL [facility] Bilirubin, total 0.2 0.1 - 1.2 mg/dL [facility] Protein, pl 6.7 6.5 - 8.5 g/dL [facility] Albumin 3.5 3.5 - 5.0 g/dL [facility] Alk phos 89 40 - 130 Units/L [facility] ALT 24 7 - 45 Units/L [facility] AST 21 10 - 45 Units/L [facility] Blood 05/27/2024 1:14 PM CLINICAL RESEARCH TECHNICIAN 05/27/2024 1:18 PM CLINICAL RESEARCH TECHNICIAN us Demi PEARSON LAB BLOOD ORDERABLES Final R esult [facility] [address] [facility] Department [place] [address] * (ABNORMAL) Urinalysis reflex to microscopic and culture Urine (05/27/2024 12:54 PM CLINICAL RESEARCH TECHNICIAN) Pathologist [facility] Color, ur Yellow Yellow Clarity, ur Cloudy(A) Clear [facility] Specific gravity, ur 1.019 1.003 - 1.030 [facility] pH, urine 6.0 [facility] Comment: Interpretive Data U rine pH is affected by diet, medications, systemic acid-base disturbances, and renal tubular function. pH may affect urinary stone formation. For example, urine pH below 6.0 may help reduce the tendency for calcium phosphate stones and pH greater than 6.0 may reduce the tendency for uric acid stone formation. Source: [facility] Current Interpretive Data was last revised on 2017 Protein, ur ql Negative Negative [facility] Glucose, ur ql 2+(A) Negative [facility] Ketones, ur Negative Negative [facility] Bilirubin, ur Negative Negative [facility] Blood, ur Negative Negative [facility] Urobilinogen, ur <2.0 <2.0 mg/dL [facility] Nitrite, ur Positive(A) Negative [facility] Leukocyte esterase, ur 3+(A) Negative [facility] UA reflex comment Reflex to microscopic UA will be performed. [facility] Urine 05/27/2024 12:5 4 PM CLINICAL RESEARCH TECHNICIAN 05/27/2024 12:57 PM CLINICAL RESEARCH TECHNICIAN us [facility] MICROBIOLOGY - GENERAL O RDERABLES Final Result Performing Organization Address City/[facility] Co de Phone Number [facility] [address] Department of Laboratories [place], [place] [id number] * (ABNORMAL) Urinalysis, microscopic only (05/27/2024 12:54 PM CLINICAL RESEARCH TECHNICIAN) WBC, ur >50(A) 0 - 5 /HPF RBC, ur 3-5(A) 0 - 2 /HPF [facility] Epithelial cells, squamous, ur 1-5 0 - 5 /HPF [facility] Bacteria, ur Trace(A) [facility] Mucous, ur Present(A) [facility] Culture Reflex Comment Reflex to urine culture will be performed. [facility] Urine 05/27/2024 12:5 4 PM CLINICAL RESEARCH TECHNICIAN 05/27/2024 12:57 PM CLINICAL RESEARCH TECHNICIAN [facility] URINE ORDERABLES Final R esult Performing Organization Address [facility] Co de Phone Number [facility] [address] Department [place] [address] * (ABNORMAL) Urine culture Urine (05/27/2024 12:54 PM CLINICAL RESEARCH TECHNICIAN) Report Final Report: Greater than or equal to 100,000 colonies/mL of Escherichia coli (.) Comment:Testing performed by : [facility], [address] [place] [address] Organism ESCHERICHIA COLI [facility] Urine 05/27/2024 12:5 4 PM CLINICAL RESEARCH TECHNICIAN 05/27/2024 4:31 PM CLINICAL RESEARCH TECHNICIAN Narrative CARLAALPHONSE - 05/30/2024 6:17 AM CLINICAL RESEARCH TECHNICIAN Urine culture reflexed based upon urinalysis results. Testing performed by [facility] ([phone]) Organism Antibiotic Method Susceptibility Escherichia coli Ampicillin INTERPRETATION Resistant Escherichia coli Cefazolin INTERPRETATION Susceptible Escherichia coli Nitrofurantoin INTERPRETATION Susceptible Escherichia coli Gentamicin INTERPRETATION Susceptible Escherichia coli Trimethoprim with Sulfamethoxazole IN TERPRETATION Susceptible Escherichia coli Meropenem INTERPRETATION Susceptible Escherichia coli Cefepime INTERPRETATION Susceptible Escherichia coli Ciprofloxacin INTERPRETATION Susceptible Escherichia coli Ceftazidime INTERPRETATION Susceptible Escherichia coli Ceftriaxone INTERPRETATION Susceptible Escherichia coli Piperacillin/Tazobactam INTERPRETATIO N Susceptible Escherichia coli Cephalexin INTERPRETATION Susceptible Escherichia coli Cefuroxime-axetil INTERPRETATION Susceptible Escherichia coli Cefdinir INTERPRETATION Susceptible [facility] MICROBIOLOGY - GENERAL O RDERABLES Final Result Performing Organization Address [facility] Co de Phone Number [facility] [address] Department [place] [address] from Last 3 Months Insurance [facility] Advance Directives For more information, please contact: [phone] * Full Code (Latest Code Status on File) Date Activated Date Inactivated Comments 05/27/2024 7:34 PM 05/30/2024 3:47 PM Care Teams Skeet Operator Relationship Specialty Start Date End Date No, Physician PCP - General 05/27/24
--- OUTSIDE RECORDS SUMMARY | 2024-07-27 16:38 | XMS_ITS | Clinical Summary ---
Author Organization [facility] Address [address] [place] [address] Care Team Providers Care Principal System Software Engineer Name Role Phone No, Physician Primary Care Provider [phone] Allergies Active Allergy Reactions Criticality Noted Date [...] directed. 100 each 5 Active PNV with utrhvnz-ealv-ID 27 mg iron- 1 mg tabletIndication s:Prevention of Neural Tube Defects Take 1 tablet by mouth daily 30 tablet 11 5 Active aspirin 81 mg chewable tablet Take 1 tablet (81 mg total) by mouth daily 30 tablet 11 5 06/01/19 26 Active blood-glucose meter,continuous (Dexcom G7 Closet Organizer) miscIndications: Diet controlled gestational diabetes mellitus (GDM) in second trimester Apply office automation technician 1 each 5 Active blood-glucose sensor (Dexcom G7 Sensor) deviceIndication s:Diet controlled gestational diabetes mellitus (GDM) in second trimester Apply sensor 1 each 5 Active Active Problems Problem Noted Date Diagnosed Date Pyelonephritis affecting , antepartum 0 05/27/2024 Estimated Date of Delivery Comme nts Yes 08/24/2024 Based on Ultraso und Encounters Date Type Department Care Team Description 06/16/2024 1:23 PM CDT - 06/16/2024 2:55 PM CDT Emergency [facility] OB Emergency Department [address] [place] [address] Demi Lewis MD False labor before 37 completed weeks of gestation in third trimester (Primary Dx); Pelvic pain affecting in third trimester, antepartum; 30 weeks gestation of Discharge Disposition: Discharge to home or self care 06/01/2024 Orders Only [address] [address] Yenni Umana MD Diet controlled gestational diabetes mellitus (GDM) in second trimester (Primary Dx) 06/01/2024 Orders Only [address] [address] Yenni Umana MD Diet controlled gestational diabetes mellitus (GDM) in second trimester 05/30/2024 Telephone [facility] [address] [facility] [place] [address] Fina Reed CDE 05/28/2024 8:45 AM WAITER/WAITRESS CAFETERIA Ancillary Procedure [address] [place] [address] 05/27/2024 6:40 PM WAITER/WAITRESS CAFETERIA - 05/30/2024 11:46 AM WAITER/WAITRESS CAFETERIA Hospital Encounter [address] [address] Jake Moore MD Thayer, Sydney Marie, MD Diet controlled gestational diabetes mellitus (GDM) in second trimester (Primary Dx) Discharge Disposition: Discharge to home or self care 05/27/2024 2:19 PM WAITER/WAITRESS CAFETERIA - 05/27/2024 6:07 PM WAITER/WAITRESS CAFETERIA Emergency [address] [address] Blake Taveras MD Abdominal pain (Primary Dx); 26 weeks gestation of ; Acute cystitis with hematuria; History of pre-eclampsia Discharge Disposition: Discharge to a short term hospital for IP 05/27/2024 2:11 PM WAITER/WAITRESS CAFETERIA - 05/27/2024 11:59 PM WAITER/WAITRESS CAFETERIA Hospital Encounter [facility] [phone] Emergency, Room R Discharge Disposition: Discharge to home or self care from Last 3 Months Immunizations Immunization Administration Dates Next Due Influenza, Trivalent, Preservative Free, Intramu scular 05/29/2024 Tdap 05/29/2024 Medical History Medical History Date Comments GDM (gestational diabetes mellitus) Preeclampsia, severe, unspecified trimester Kidney infection Lupus (systemic lupus erythematosus) (HCC) Family History Medical History Relation Name Comments small cell Maternal Grandmother Endometriosis Mother small cell Mother Relation Name Status Comments Maternal Grandmother Mother Social History Tobacco Use Types Packs/Day Years [...] often do you attend chur ch or evangelical services? More than 4 times per year 05/29/2024 Do you belong to any clubs o r organizations such as christian groups, unions, fraternal or athletic groups, or [...] any time in the past 12 m [facility], were you homeless or living in a [facility] (including now)? No 05/29/2024 Personal Safety Answer [...] on file Legal Sex Female 12:34 PM WAITER/WAITRESS CAFETERIA Gender Identity Female 06/01/2024 8:15 AM WAITER/WAITRESS CAFETERIA Sexual Orientation Straight 06/01/2024 8: 15 AM WAITER/WAITRESS CAFETERIA Obstetrics History Para Term AB IAB SAB Ectopic Multiple Livin g Live Births 5 3 1 2 1 3 3 Date Outcome GA Total Labor Labor/2nd/3rd Weight Sex Type Anes PTL Meghna A1 A5 Name Clin AB 2002 Term Vag-S pont Living 2017 Vag-S pont Living Complications:Pre eclampsia 2020 36w 0d Vag-S pont Living Complications:Pre eclampsia Current Comments 2002 - term delivery, gHTN 2017 - delivery ~36 weeks in setting of preEwSF, also c/b GDM 2020 - delivery unclear on GA, also c/b preEwSF and GDM Summary Episode Dates Number of Fetuses Estimated Date of Delivery 05/27/2024 - Present (07/27/2024) 08/24/2024 (set by Jason Werner in [place], RN on 06/16/2024 based on Ultrasound on 05/28/2024) Dating Summary Based On PATRIC GA Diff Ultrasound on 05/27/2024 08/25/2024 -1d GA:27w1d Ultrasound on 05/28/2024 08/24/2024 Working GA:27w3d Vitals Pregravid Weight Height TWG (As of 07/27/2024) Pregrav id BMI 170.2 cm (5' 7 ) Date GA Fund Present FHR Mvmt BP Weight Edema Alb Glu Ket Dil/ Eff/Sta 27w5d Inpatient data not displayed here. See encounter summary. Notes Progress Notes - Hospital En counter - 05/30/2024 - GA:27w5d 05/30/2024 - wd - Ninfa Castañeda MSW Social Work receives phone call from [facility] investigator internal affairs Rupal Monique ([phone]). Rupal reports that Kellie Gramajo currently has 2 children (ages 6 and 4) who are in custody with [facility]. Per Rupal, Kellie Gramajo has a history of methamphetamine use. She notes patient's last use was allegedly in October 2023. Social Work thanked Rupal for the information. NISHANT Schultz, [facility] [place] Atomic Process Engineer [facility] ER/WAITRESS CAFETERIA 05/30/2024 - d - Yenni Umana MD Antepartum Progress Note Admission Date: 05/27/2024 Length of stay: 3 Care Provider: None Brief HPI: 43 y.o. at 27w4d admitted for pyelonephritis SUBJECTIVE Feeling very well and back to herself Review of Systems Negative except as per above. OBJECTIVE Vitals: Temp Min: 36.5 C (97.7 F) Max: 36.8 C (98.3 F) Pulse Min: 90 Max: 105 BP Min: 111/54 Max: 124/79 Resp Min: 16 Max: 18 SpO2 Min: 95 % Max: 99 % FHR: +daily dopp tones Sagar: not applicable Physical Exam General: No acute distress. Appears stated age and cooperative. Cardiovascular: Regular rate and rhythm. Lungs: Non-labored. Abdomen: Deferred as sleeping. Reassessed on AM rounds without CVA tenderness. Extremities: Warm and well-perfused. No bilateral lower extremity edema or calf tenderness. Pelvic: Deferred. Neurologic: Sleeping Lab Review: Recent Labs Lab Units 05/30/24 0409 05/29/24 0513 05/28/24 0616 WBC K/cumm 20.5* 17.1* 17.0* HEMOGLOBIN g/dL 11.2* 11.7* 10.8* HEMATOCRIT % 33.3* 34.5* 32.0* PLATELETS K/cumm 255 256 253 Recent Labs Lab Units 05/30/24 0406 05/29/24 2112 05/29/24 1654 05/28/24 1228 05/27/24201605/27/24 1314 SODIUM mmol/L -- -- -- -- 137 136 POTASSIUM PLASMA mmol/L -- -- -- -- 3.5 4.0 CHLORIDE mmol/L -- -- -- -- 103 101 CO2 mmol/L -- -- -- -- 23 22 ANIONGAP mmol/L -- -- -- -- 11 13 GLUCOSE mg/dL -- -- -- -- 126 91 POC GLUCOSE MONITOR mg/dL 122 108 188 < > -- -- BUN SERUM mg/dL -- -- -- -- 6 8 CREATININE mg/dL -- -- -- -- 0.44* 0.39* CALCIUM mg/dL -- -- -- -- 8.3* 10.0 ALBUMIN g/dL -- -- -- -- 3.0* 3.5 ALK PHOS Units/L -- -- -- -- 70 89 ALT Units/L -- -- -- -- 24 24 AST Units/L -- -- -- -- 21 21 BILIRUBIN TOTAL mg/dL -- -- -- -- 0.2 0.2 < > = values in this interval not displayed. ASSESSMENT/PLAN Kellie Gramajo is a 43 y.o. at 27w4d admitted for pyelonephritis . #Pyelo -presented to OSH with abdominal pain > labs notable for WBC 23.5, UA with +mucous, richard, RBS, WBCs, +3 LE, +nitrites -HD stable, afebrile -s/p ceftriaxone at OSH -UCx w/ E.coli (resistant to ampicillin), BCx NGTD -admission exam: R sided CVA tenderness, otherwise unremarkable -admission labs: WBC 22.4, Cr 0.44 Plan: - Continuous pulse ox - Transitioned to Keflex 500 mg BID x10 days - Ordered for APAP, lidoderm patch, Aqua K pad, flexeril if needed #h/o preEwSF, gHTN -reports gHTN during 2002 , preEwSF with PTD in 2020 pregnancies -no known cHTN -BPs normotensive at OSH and on admission -CBC/CMP unremarkable, UPC 0.22- although may be unreliable in setting of current pyelo -has not been taking ASA this , ordered #GDMA1 #h/o GDM - reported h/o GDM during last two pregnancies - A1c on admission 5.8 - met diagnosis by 1 hour gtt 242, 3/4 elevated on 3 hr GTT - POCT fasting, with meal & HS w/ SSI ordered - Consult to RD pending #rub NI - Offer MMR #FWB: - BSUS Ant/Vtx: EFW 1089g > 27w1d - No earlier/ previous US available for review/ dating, patient unsure of last LMP - Genetic screening: not completed - dating us on 05/28: 51%ile 27w3d - Anatomy US: Needs complete anatomy - BMZ/Mg/PCN/ peds consult deferred - MONITORING PLAN: dDTs s/p counseling #MWB #AMA #NPNC - PNL: Rh pos/Ab neg/HIV NR/Rub NR/ VZV imm/RPR NR/HepB NR/ HepC NR/ GC/CT neg/neg - UDS consented and ordered on admission - 1 hr GTT elevated at 242 but s/p steroids - Tdap and flu ordered - Rhogam not indicated - GBS pending - MOD: TBD - MOF: breast and formula - MOC: POPs Dispo: Anticipate discharge today after teaching on GDMA1. Will plan for f/u visit in resident clinic + consult to CDP. Yenni Umana MD 05/30/24 Cosigned by Jake Moore MD at 05/30/2024 9:25 AM WAITER/WAITRESS CAFETERIA ER/WAITRESS CAFETERIA ER/WAITRESS CAFETERIA ER/WAITRESS CAFETERIA ER/WAITRESS CAFETERIA Associated attestation - Jake Moore MD - 05/30/2024 9:25 AM WAITER/WAITRESS CAFETERIA I have seen and examined the patient on 05/30/24. I agree with the findings and plan of care as documented in the resident's/fellow's note.. Feels well Plan DC today with outpatient follow up next week 05/29/2024 - 27w4d - Yenni Umana MD Antepartum Progress Note Admission Date: 05/27/2024 Length of stay: 2 Care Provider: None Brief HPI: 43 y.o. at 27w3d admitted for pyelonephritis SUBJECTIVE - Belly pain has improved - Back pain is poorly controlled despite APAP. Flexeril was helpful - Interested in heat pack Review of Systems Negative except as per above. OBJECTIVE Vitals: Temp Min: 36.4 C (97.5 F) Max: 36.7 C (98.1 F) Pulse Min: 90 Max: 101 BP Min: 108/53 Max: 128/60 Resp Min: 16 Max: 17 SpO2 Min: 97 % Max: 98 % FHR: +daily dopp tones Sagar: not applicable Physical Exam General: No acute distress. Appears stated age and cooperative. Cardiovascular: Regular rate and rhythm. Lungs: Non-labored. Abdomen: Soft, non-tender, gravid. Extremities: Warm and well-perfused. No bilateral lower extremity edema or calf tenderness. Pelvic: Deferred. Neurologic: Alert and oriented x4, non-focal Lab Review: Recent Labs Lab Units 05/29/24 0513 05/28/24 0616 05/27/24202805/27/242016 WBC K/cumm 17.1* 17.0* -- 22.4* HEMOGLOBIN g/dL 11.7* 10.8* 10.0* 10.7* HEMATOCRIT % 34.5* 32.0* -- 31.9* PLATELETS K/cumm 256 253 -- 250 Recent Labs Lab Units 05/29/24 0156 05/28/24203005/28/24 1228 05/27/24201605/27/24 1314 SODIUM mmol/L -- -- -- 137 136 POTASSIUM PLASMA mmol/L -- -- -- 3.5 4.0 CHLORIDE mmol/L -- -- -- 103 101 CO2 mmol/L -- -- -- 23 22 ANIONGAP mmol/L -- -- -- 11 13 GLUCOSE mg/dL -- -- -- 126 91 POC GLUCOSE MONITOR mg/dL 113 169 129 -- -- BUN SERUM mg/dL -- -- -- 6 8 CREATININE mg/dL -- -- -- 0.44* 0.39* CALCIUM mg/dL -- -- -- 8.3* 10.0 ALBUMIN g/dL -- -- -- 3.0* 3.5 ALK PHOS Units/L -- -- -- 70 89 ALT Units/L -- -- -- 24 24 AST Units/L -- -- -- 21 21 BILIRUBIN TOTAL mg/dL -- -- -- 0.2 0.2 ASSESSMENT/PLAN Kellie Gramajo is a 43 y.o. at 27w3d admitted for pyelonephritis . #Pyelo -presented to OSH with abdominal pain > labs notable for WBC 23.5, UA with +mucous, richard, RBS, WBCs, +3 LE, +nitrites -HD stable, afebrile -s/p ceftriaxone at OSH -UCx w/ E.coli stevenson pending, BCx NGTD -admission exam: R sided CVA tenderness, otherwise unremarkable -admission labs: WBC 22.4, Cr 0.44 Plan: - Continuous pulse ox - Continue ceftriaxone q24 > transition to PO once able to complete treatment - Fu cultures from OSH - F/u susceptibilities - Ordered for APAP, lidoderm patch, Aqua K pad, flexeril if needed #h/o preEwSF, gHTN -reports gHTN during 2002 , preEwSF with PTD in 2020 pregnancies -no known cHTN -BPs normotensive at OSH and on admission -CBC/CMP unremarkable, UPC 0.22- although may be unreliable in setting of current pyelo -has not been taking ASA this #GDMA, likely #h/o GDM -reported h/o GDM during last two pregnancies -A1c on admission 5.8 -met diagnosis by 1 hour gtt 242, to discuss with patient, will plan for 3 hour gtt, ordered -POCT fasting, with meal and HS ordered #rub NI - Offer MMR #FWB: - BSUS Ant/Vtx: EFW 1089g > 27w1d - No earlier/ previous US available for review/ dating, patient unsure of last LMP - Genetic screening: not completed - Anatomy US: ordered - BMZ/Mg/PCN/ peds consult deferred - MONITORING PLAN: dDTs s/p counseling #MWB #AMA #NPNC - PNL: Rh pos/Ab neg/HIV NR/Rub NR/ VZV imm/RPR NR/HepB NR/ HepC NR/ GC/CT neg/neg - UDS consented and ordered on admission - 1 hr GTT elevated at 242 but s/p steroids - Tdap - to offer this admission - Rhogam not indicated - GBS pending - MOD: TBD - MOF: TBD - MOC: TBD Dispo: Anticipate discharge when clinically stable Yenni Umana MD 05/29/24 Cosigned by Jake Moore MD at 05/29/2024 10:41 AM WAITER/WAITRESS CAFETERIA ER/WAITRESS CAFETERIA ER/WAITRESS CAFETERIA Associated attestation - Jake Moore MD - 05/29/2024 10:41 AM WAITER/WAITRESS CAFETERIA I have seen and examined the patient on 05/29/24. I agree with the findings and plan of care as documented in the resident's/fellow's note.. Overall feeling much better Hopefully DC tomorrow Discussed GDM diagnosis - RD consult pending. 05/28/2024 - w3d - Yesenia Rodriguez MD Antepartum Progress Note Admission Date: 05/27/2024 Length of stay: 1 Care Provider: None Brief HPI: 43 y.o. at 27w2d admitted for pyelonephritis SUBJECTIVE - No new problems. - Reports active movement, last night, just woke up this am - No vaginal bleeding/leakage of fluid/contractions. -Would like to establish care with our clinic for care Review of Systems Negative except as per above. OBJECTIVE Vitals: Temp Min: 36.6 C (97.9 F) Max: 36.9 C (98.5 F) Pulse Min: 76 Max: 115 BP Min: 109/62 Max: 131/76 Resp Min: 16 Max: 20 SpO2 Min: 93 % Max: 100 % FHR: WNL Sagar: not applicable Physical Exam General: No acute distress. Appears stated age and cooperative. Cardiovascular: Regular rate and rhythm. Lungs: Non-labored. Abdomen: Soft, non-tender, gravid. Extremities: Warm and well-perfused. No bilateral lower extremity edema or calf tenderness. Pelvic: Deferred. Neurologic: Alert and oriented x4, non-focal Lab Review: Recent Labs Lab Units 05/27/24202805/27/24201605/27/24 1314 WBC K/cumm -- 22.4* 23.5* HEMOGLOBIN g/dL 10.0* 10.7* 12.1 HEMATOCRIT % -- 31.9* 36.3 PLATELETS K/cumm -- 250 290 Recent Labs Lab Units 05/27/24201605/27/24 1314 SODIUM mmol/L 137 136 POTASSIUM PLASMA mmol/L 3.5 4.0 CHLORIDE mmol/L 103 101 CO2 mmol/L 23 22 ANIONGAP mmol/L 11 13 GLUCOSE mg/dL 126 91 BUN SERUM mg/dL 6 8 CREATININE mg/dL 0.44* 0.39* CALCIUM mg/dL 8.3* 10.0 ALBUMIN g/dL 3.0* 3.5 ALK PHOS Units/L 70 89 ALT Units/L 24 24 AST Units/L 21 21 BILIRUBIN TOTAL mg/dL 0.2 0.2 ASSESSMENT/PLAN Kellie Gramajo is a 43 y.o. at 27w2d admitted for pyelonephritis . #Pyelo -presented to OSH with abdominal pain > labs notable for WBC 23.5, UA with +mucous, richard, RBS, WBCs, +3 LE, +nitrites -HD stable, afebrile -s/p ceftriaxone at OSH -UCx, BCx pending -admission exam: R sided CVA tenderness, otherwise unremarkable -admission labs: WBC 22.4, Cr 0.44 Plan: -Continuous pulse ox -Continue ceftriaxone q24 > transition to PO once able to complete treatment - Fu cultures from OSH #h/o preEwSF, gHTN -reports gHTN during 2002 , preEwSF with PTD in 2017, 2020 pregnancies -no known cHTN -BPs normotensive at OSH and on admission -CBC/CMP unremarkable, UPC collected although may be unreliable in setting of current pyelo -has not been taking ASA this #h/o GDM -reported h/o GDM during last two pregnancies -A1c on admission 5.8 -ordered for 1 hr gtt with next set of labs #FWB: - BSUS Ant/Vtx: EFW 1089g > 27w1d - No earlier/ previous US available for review/ dating, patient unsure of last LMP - Genetic screening: not completed - Anatomy US: ordered - BMZ/Mg/PCN/ peds consult deferred - MONITORING PLAN: dDTs s/p counseling #MWB #AMA #NPNC - PNL: Hgb 10.7, Rh pos, all others WNL, VZV and MMR pending - UDS pos for THC - 1 hr GTT ordered with next set of labs - Tdap - to offer this admission; Flu vaccine to offer this admission - Rhogam not indicated - GBS pending - MOD: anticipate vaginal - MOF: TBD - MOC: TBD Dispo: Anticipate discharge when clinically stable Yesenia Rodriguez MD 05/28/24 Cosigned by Jake Moore MD at 05/28/2024 9:54 AM WAITER/WAITRESS CAFETERIA ER/WAITRESS CAFETERIA ER/WAITRESS CAFETERIA Associated attestation - Jake Moore MD - 05/28/2024 9:54 AM WAITER/WAITRESS CAFETERIA I have seen and examined the patient on 05/28/24. I agree with the findings and plan of care as documented in the resident's/fellow's note.. Feels overall better Last Filed Vital Signs Vital Sign Reading Time Taken Comments Blood Pressure 120/63 06/16/2024 2:03 PM CDT Pulse 101 06/16/2024 2:03 PM CDT Temperature 36.7 C (98.1 F) 06/16/2024 1:44 PM CDT Respiratory Rate 18 06/16/2024 1:44 PM CDT Oxygen Saturation 99% 06/16/2024 1:44 PM CDT Inhaled Oxygen Concentration - - Weight 84.3 kg (185 lb 14.4 oz) 025 11:32 PM WAITER/WAITRESS CAFETERIA Height 170.2 cm (5' 7 ) 05/27/2024 6:52 PM WAITER/WAITRESS CAFETERIA Body Mass Index 29.12 05/27/2024 6:52 PM WAITER/WAITRESS CAFETERIA Plan of Treatment Upcoming Encounters Date Type Department Care Team (Late st Contact Info) Description 08/25/2024 Hospital Encounter [address] [address] Dede Workman MD [address] [address] Health Maintenance Due Date Last Done Comments Breast Cancer Screening-Mammogram 1982 Cervical Cancer Screening 1982 Depression Screening 1982 Varicella Vaccines (1 of 2 - 13+ 2-dose series) 12/30/1995 Hepatitis B Screening 2000 Regular Well Visit/Exam 18-64 2000 Pneumococcal vaccine <65 (1 of 2 - PCV) 2001 DTaP/Tdap/Td Vaccine (3 - Td or Tdap) 05/29/2034 05/29/2024, 10/09/2017 Hepatitis C Screening Completed 05/27/2024 Influenza Vaccine Completed 05/29/2024, 01/25/2015 HPV Vaccines Aged Out No longer eligi ble based on patient's age to complete this topic Procedures Procedure Name Priority Date/Time Associated Diagnosis Comments URINALYSIS AND REFLEX TO MICROSCOPIC AND CULTURE STAT 06/16/2024 2:21 PM CDT POCT GLUCOSE DEVICE Routine 06/16/2024 2 :08 PM CDT PAMG-1 PROTEIN MARKER (ROM) STAT 06/16/2024 1:53 PM CDT POCT GLUCOSE DEVICE Routine 05/30/2024 8 :30 AM WAITER/WAITRESS CAFETERIA TYPE AND SCREEN Timed 05/30/2024 4:42 AM WAITER/WAITRESS CAFETERIA CBC WITHOUT DIFFERENTIAL Routine 05/30/2024 4:09 AM WAITER/WAITRESS CAFETERIA POCT GLUCOSE DEVICE Routine 05/30/2024 4 :06 AM WAITER/WAITRESS CAFETERIA POCT GLUCOSE DEVICE Routine 05/29/2024 9 :12 PM WAITER/WAITRESS CAFETERIA POCT GLUCOSE DEVICE Routine 05/29/2024 4 :54 PM WAITER/WAITRESS CAFETERIA POCT GLUCOSE DEVICE Routine 05/29/2024 1 :34 PM WAITER/WAITRESS CAFETERIA GTT 100GM 3HR GESTATIONAL DIAGNOSTIC Timed 05/29/2024 7:53 AM WAITER/WAITRESS CAFETERIA GTT 100GM 3HR GESTATIONAL DIAGNOSTIC Timed 05/29/2024 7:53 AM WAITER/WAITRESS CAFETERIA GTT 100GM 2HR GESTATIONAL DIAGNOSTIC Timed 05/29/2024 7:16 AM WAITER/WAITRESS CAFETERIA GTT 100GM 1HR GESTATIONAL DIAGNOSTIC Timed 05/29/2024 6:17 AM WAITER/WAITRESS CAFETERIA GTT 100GM FASTING GESTATIONAL DIAGNOSTIC Timed 05/29/2024 5:13 AM WAITER/WAITRESS CAFETERIA CBC WITHOUT DIFFERENTIAL Routine 05/29/2024 5:13 AM WAITER/WAITRESS CAFETERIA POCT GLUCOSE DEVICE Routine 05/29/2024 1 :56 AM WAITER/WAITRESS CAFETERIA POCT GLUCOSE DEVICE Routine 05/28/2024 8 :31 PM WAITER/WAITRESS CAFETERIA POCT GLUCOSE DEVICE Routine 05/28/2024 1 2:28 PM WAITER/WAITRESS CAFETERIA US OB 14 WEEKS OR OVER IP Routine 9:41 AM WAITER/WAITRESS CAFETERIA CBC WITHOUT DIFFERENTIAL Routine 05/28/2024 6:16 AM WAITER/WAITRESS CAFETERIA GTT 50GM 1HR GESTATIONAL SCREEN Routine 05/28/2024 6:16 AM WAITER/WAITRESS CAFETERIA GROUP B STREPTOCOCCUS CULTURE Routine 05/27/2024 9:43 PM WAITER/WAITRESS CAFETERIA B CHECK SAMPLE STAT 05/27/2024 9:42 PM WAITER/WAITRESS CAFETERIA PROTEIN / CREATININE RATIO, URINE, RANDOM Routine 05/27/2024 9:42 PM WAITER/WAITRESS CAFETERIA TRICHOMONAS VAGINALIS PCR Routine 05/27/2024 9:42 PM WAITER/WAITRESS CAFETERIA N. GONORRHOEAE/C. TRACHOMATIS AMPLIFICATION Routine 05/27/2024 9:42 PM WAITER/WAITRESS CAFETERIA DRUGS OF ABUSE SCREEN, URINE WITH REFLEX CONFIRMATION Routine 05/27/2024 9:37 PM WAITER/WAITRESS CAFETERIA HEMOGLOBIN ANALYSIS BY ELECTROPHORESIS STAT 05/27/2024 8:29 PM WAITER/WAITRESS CAFETERIA HEMOGLOBIN A1C Routine 05/27/2024 8:17 PM WAITER/WAITRESS CAFETERIA EGFR Routine 05/27/2024 8:17 PM WAITER/WAITRESS CAFETERIA COMPREHENSIVE METABOLIC PANEL Routine 05/27/2024 8:17 PM WAITER/WAITRESS CAFETERIA TYPE AND SCREEN Timed 05/27/2024 8:17 PM WAITER/WAITRESS CAFETERIA CBC WITHOUT DIFFERENTIAL Routine 05/27/2024 8:17 PM WAITER/WAITRESS CAFETERIA HEPATITIS B CORE IGM Routine 05/27/2024 8:17 PM WAITER/WAITRESS CAFETERIA RPR Routine 05/27/2024 8:17 PM WAITER/WAITRESS CAFETERIA HEPATITIS C ANTIBODY Routine 05/27/2024 8:17 PM WAITER/WAITRESS CAFETERIA HEPATITIS B SURFACE ANTIBODY (IMMUNE STATUS) Routine 05/27/2024 8:17 PM WAITER/WAITRESS CAFETERIA VARICELLA ZOSTER ANTIBODY, IGG Routine 05/27/2024 8:17 PM WAITER/WAITRESS CAFETERIA RUBELLA IGG Routine 05/27/2024 8:17 PM WAITER/WAITRESS CAFETERIA HIV 1/2 ANTIBODY PLUS P24 ANTIGEN Routine 05/27/2024 8:17 PM WAITER/WAITRESS CAFETERIA US OB LIMITED ED 05/27/2024 4:19 PM WAITER/WAITRESS CAFETERIA US RENAL LIMITED IP Routine 05/27/2024 4:05 PM WAITER/WAITRESS CAFETERIA US RUQ ED 05/27/2024 4:00 PM WAITER/WAITRESS CAFETERIA US APPENDIX IP Routine 05/27/2024 3:45 PM WAITER/WAITRESS CAFETERIA B ABO / RH CONFIRMATION TESTING STAT 05/27/2024 2:49 PM WAITER/WAITRESS CAFETERIA INFLUENZA A/B, RSV, AND COVID-19 PCR STAT 05/27/2024 2:49 PM WAITER/WAITRESS CAFETERIA BLOOD CULTURE STAT 05/27/2024 2:49 PM WAITER/WAITRESS CAFETERIA SEPSIS LACTATE WITH REFLEX STAT 05/27/2024 2:47 PM WAITER/WAITRESS CAFETERIA BLOOD CULTURE STAT 05/27/2024 2:47 PM WAITER/WAITRESS CAFETERIA MAGNESIUM STAT 05/27/2024 1:14 PM WAITER/WAITRESS CAFETERIA PHOSPHORUS STAT 05/27/2024 1:14 PM WAITER/WAITRESS CAFETERIA EGFR STAT 05/27/2024 1:14 PM WAITER/WAITRESS CAFETERIA MANUAL DIFFERENTIAL STAT 05/27/2024 1 :14 PM WAITER/WAITRESS CAFETERIA DIFFERENTIAL AUTO STAT 05/27/2024 1:1 4 PM WAITER/WAITRESS CAFETERIA ANTIBODY SCREEN Timed 05/27/2024 1:14 PM WAITER/WAITRESS CAFETERIA ABO/RH Timed 05/27/2024 1:14 PM WAITER/WAITRESS CAFETERIA TYPE AND SCREEN Timed 05/27/2024 1:14 PM WAITER/WAITRESS CAFETERIA COMPREHENSIVE METABOLIC PANEL STAT 05/27/2024 1:14 PM WAITER/WAITRESS CAFETERIA CBC WITH AUTO DIFFERENTIAL STAT 05/27/2024 1:14 PM WAITER/WAITRESS CAFETERIA URINALYSIS, MICROSCOPIC ONLY STAT 05/27/2024 12:54 PM WAITER/WAITRESS CAFETERIA URINE CULTURE STAT 05/27/2024 12:54 PM WAITER/WAITRESS CAFETERIA URINALYSIS AND REFLEX TO MICROSCOPIC AND CULTURE STAT 05/27/2024 12:54 PM WAITER/WAITRESS CAFETERIA from Last 3 Months Results * (ABNORMAL) Urinalysis reflex to microscopic and culture Urine, clean voided (06/16/2024 2:21 PM CDT) Color, ur Yellow Yellow Comment:Testing performed by : [address] [address] Clarity, ur Cloudy(A) Clear [place] Comment:Testing performed by : [address] [address] Specific gravity, ur 1.017 1.003 - 1.030 [place] Comment:Testing performed by : [address] [address] pH, urine 6.0 [place] Comment: Interpretive Data U rine pH is affected by diet, medications, systemic acid-base disturbances, and renal tubular function. pH may affect urinary stone formation. For example, urine pH below 6.0 may help reduce the tendency for calcium phosphate stones and pH greater than 6.0 may reduce the tendency for uric acid stone formation. Source: [facility] Current Interpretive Data was last revised on 2017 Testing performed by: [facility], [address] [place] [address]., [id number] Protein, ur ql Negative Negative [facility] Comment:Testing performed by : [facility], [address] [place] [address], [place]., [address] Glucose, ur ql Trace(A) Negative [facility] Comment:Testing performed by : [address], [place]., [address] Ketones, ur Negative Negative [facility] Comment:Testing performed by : [address], [place]., [address] Bilirubin, ur Negative Negative [facility] Comment:Testing performed by : [address], [place]., [address] Blood, ur Negative Negative [facility] Comment:Testing performed by : [address], [place]., [address] Urobilinogen, ur <2.0 <2.0 mg/dL [facility] Comment:Testing performed by : [address], [place]., [address] Nitrite, ur Negative Negative [facility] Comment:Testing performed by : [address], [place]., [address] Leukocyte esterase, ur Negative Negative [facility] Comment:Testing performed by : [address], [place]., [address] UA reflex comment Reflex conditions for microscopic UA and culture not met. [facility] Comment:Testing performed by : [address] [address] Urine, clean voided 06/16/2024 2:21 PM CDT 06/16/2024 2:24 PM CDT us Grady Martin MD LAB MICROBIOLOGY - GENERA L ORDERABLES Final Result [facility] [address] [facility] Department of Laboratories [place], [place] [id number] * POCT glucose (06/16/2024 2:08 PM CDT) Glucose, POC 117 70 - 199 mg/dL Comment:Testing performed by : [facility], [address] [place] [address]., [address] Glucose comment 1 Use This Result [facility] Comment:Testing performed by : [facility], [address] [place] [address]., [id number] Blood 06/16/2024 2:08 PM CDT 06/16/2024 2:08 PM CDT us Demi Lewis MD LAB POCT ORDERABLES - DEVICE Fi nal Result [address] [place] [address] * ROM Plus (IGFBP-1/AFP) (06/16/2024 1:53 PM CDT) [facility] IFG Binding Protein-1 / AFP Negative Comment:Testing performed by : [facility], [address] [place] [address], [id number] Swab 06/16/2024 1:53 PM CDT 06/16/2024 2:01 PM CDT us Grady Martin MD LAB BODY FLUIDS AND STOOL S ORDERABLES Final Result Performing Organization Address City/[facility]/ZIP Co de Phone Number [address] [place] [address] * POCT glucose (05/30/2024 8:30 AM WAITER/WAITRESS CAFETERIA) Pathologist [facility] Glucose, POC 152 70 - 199 mg/dL Comment:Pre Meal Glucose comment 1 Pre Meal [facility] Blood 05/30/2024 8:30 AM WAITER/WAITRESS CAFETERIA 05/30/2024 8:30 AM WAITER/WAITRESS CAFETERIA us Jake Moore MD LAB POCT ORDERABL ES - DEVICE Final Result [facility] Department [place] [address] * Type and screen (05/30/2024 4:42 AM WAITER/WAITRESS CAFETERIA) Pathologist [facility] Jas, indirect Negative ABO Rh O Positive [facility] Blood 05/30/2024 4:42 AM WAITER/WAITRESS CAFETERIA 05/30/2024 4:50 AM WAITER/WAITRESS CAFETERIA Narrative [facility] - 05/30/2024 6:04 AM WAITER/WAITRESS CAFETERIA Has the patient had Daratumumab or Isatuximab in the past 6 months?->Unknown Jake Moore MD LAB BLOOD BANK TE ST ORDERABLES Final Result [facility] Department [place] [address] * (ABNORMAL) CBC without differential (05/30/2024 4:09 AM WAITER/WAITRESS CAFETERIA) [facility] WBC 20.5(H) 3.8 - 9.9 K/cumm Hgb 11.2(L) 11.9 - 15.5 g/dL [facility] Hct 33.3(L) 35.6 - 45.5 % [facility] Plt 255 150 - 400 K/cumm [facility] MPV 9.8 9.1 - 12.3 fL [facility] RBC 3.61(L) 3.90 - 5.20 M/cumm [facility] MCV 92.2 81.3 - 96.4 fL [facility] MCH 31.0 27.1 - 33.3 pg [facility] MCHC 33.6 32.3 - 35.7 g/dL [facility] RDW CV 13.9 11.1 - 14.9 % [facility] RDW SD 46.6 35.7 - 48.1 fL [facility] NRBC abs 0.00 0.00 - 0.01 K/cumm [facility] Blood 05/30/2024 4:09 AM WAITER/WAITRESS CAFETERIA 05/30/2024 4:23 AM WAITER/WAITRESS CAFETERIA Jake Moore MD LAB BLOOD ORDERAB LES Final Result Performing Organization Address [facility] Co de Phone Number [facility] [place] [address] * POCT glucose (05/30/2024 4:06 AM WAITER/WAITRESS CAFETERIA) Glucose, POC 122 70 - 199 mg/dL Blood 05/30/2024 4:06 AM WAITER/WAITRESS CAFETERIA 05/30/2024 4:06 AM WAITER/WAITRESS CAFETERIA Jake Moore MD LAB POCT ORDERABL ES - DEVICE Final Result Performing Organization Address [facility] de Phone Number [facility] [place] [address] * POCT glucose (05/29/2024 9:12 PM WAITER/WAITRESS CAFETERIA) Glucose, POC 108 70 - 199 mg/dL Blood 05/29/2024 9:12 PM WAITER/WAITRESS CAFETERIA 05/29/2024 9:12 PM WAITER/WAITRESS CAFETERIA Jake Moore MD LAB POCT ORDERABL ES - DEVICE Final Result Performing Organization Address [facility] de Phone Number [facility] [place] [address] * POCT glucose (05/29/2024 4:54 PM WAITER/WAITRESS CAFETERIA) Glucose, POC 188 70 - 199 mg/dL Blood 05/29/2024 4:54 PM WAITER/WAITRESS CAFETERIA 05/29/2024 4:54 PM WAITER/WAITRESS CAFETERIA Jake Moore MD LAB POCT ORDERABL ES - DEVICE Final Result Performing Organization Address [facility] Co de Phone Number [facility] [place] [address] * (ABNORMAL) POCT glucose (05/29/2024 1:34 PM WAITER/WAITRESS CAFETERIA) Glucose, POC 224(H) 70 - 199 mg/dL Blood 05/29/2024 1:34 PM WAITER/WAITRESS CAFETERIA 05/29/2024 1:34 PM WAITER/WAITRESS CAFETERIA Jake Moore MD LAB POCT ORDERABL ES - DEVICE Final Result Performing Organization Address City[facility] Co de Phone Number [facility] [place] [address] * (ABNORMAL) GTT 100gm 3hr gestational diagnostic (05/29/2024 7:53 AM WAITER/WAITRESS CAFETERIA) GTT 100g 3h gest 199(H) <=139 mg/dL Blood 05/29/2024 7:53 AM WAITER/WAITRESS CAFETERIA 05/29/2024 8:20 AM WAITER/WAITRESS CAFETERIA Narrative [facility] 05/29/2024 8:45 AM WAITER/WAITRESS CAFETERIA Fasting at least 8 hours prior Jake Moore MD LAB BLOOD ORDERAB LES Final Result Performing Organization Address [facility] Co de Phone Number [facility] [place] [address] * (ABNORMAL) GTT 100gm 2hr gestational diagnostic (05/29/2024 7:16 AM WAITER/WAITRESS CAFETERIA) GTT 100g 2h gest 226(H) <=154 mg/dL Blood 05/29/2024 7:16 AM WAITER/WAITRESS CAFETERIA 05/29/2024 7:45 AM WAITER/WAITRESS CAFETERIA Narrative [facility] 05/29/2024 8:10 AM WAITER/WAITRESS CAFETERIA Fasting at least 8 hours prior Jake Moore MD LAB BLOOD ORDERAB LES Final Result Performing Organization Address [facility] Co de Phone Number [facility] [place] [address] * GTT 100gm 1hr gestational diagnostic (05/29/2024 6:17 AM WAITER/WAITRESS CAFETERIA) GTT 100g 1h gest 164 <=179 mg/dL Blood 05/29/2024 6:17 AM WAITER/WAITRESS CAFETERIA 05/29/2024 6:37 AM WAITER/WAITRESS CAFETERIA Narrative [facility] - 05/29/2024 7:03 AM WAITER/WAITRESS CAFETERIA Fasting at least 8 hours prior Jake Moore MD LAB BLOOD ORDERAB LES Final Result Performing Organization Address [facility] Co de Phone Number [facility] [place] [address] * (ABNORMAL) GTT 100gm fasting gestational diagnostic (05/29/2024 5:13 AM WAITER/WAITRESS CAFETERIA) GTT 100g fasting gest 106(H) <=94 mg/dL [...] mg/dL Reference Interval Info: [place] Medel,et al. Khushi Compared with National Diabetes Data Group Criteria for Diagnosing Gestational Diabetes. Obstetrics and Gynecology 2016:127 (5): 893-898. Diabetes Care 2020; 43(Suppl 1):S14-31 Current interpretive data was last revised 2020. Blood 05/29/2024 5:13 AM WAITER/WAITRESS CAFETERIA 05/29/2024 5:28 AM WAITER/WAITRESS CAFETERIA Narrative [facility] - 05/29/2024 5:55 AM WAITER/WAITRESS CAFETERIA Fasting at least 8 hours prior Jake Moore MD LAB BLOOD ORDERAB LES Final Result Performing Organization Address City[facility] Co de Phone Number [facility] Department [employer] [place] [address] * (ABNORMAL) CBC without differential (05/29/2024 5:13 AM WAITER/WAITRESS CAFETERIA) [facility] WBC 17.1(H) 3.8 - 9.9 K/cumm Hgb 11.7(L) 11.9 - 15.5 g/dL [facility] Hct 34.5(L) 35.6 - 45.5 % [facility] Plt 256 150 - 400 K/cumm [facility] MPV 10.0 9.1 - 12.3 fL [facility] RBC 3.73(L) 3.90 - 5.20 M/cumm [facility] MCV 92.5 81.3 - 96.4 fL [facility] MCH 31.4 27.1 - 33.3 pg [facility] MCHC 33.9 32.3 - 35.7 g/dL [facility] RDW CV 14.0 11.1 - 14.9 % [facility] RDW SD 46.9 35.7 - 48.1 fL [facility] NRBC abs 0.00 0.00 - 0.01 K/cumm [facility] Blood 05/29/2024 5:13 AM WAITER/WAITRESS CAFETERIA 05/29/2024 5:28 AM WAITER/WAITRESS CAFETERIA Jake Moore MD LAB BLOOD ORDERAB LES Final Result Performing Organization Address City[facility]/ZIP Co de Phone Number [facility] [place] [address] * POCT glucose (05/29/2024 1:56 AM WAITER/WAITRESS CAFETERIA) [facility] Glucose, POC 113 70 - 199 mg/dL Blood 05/29/2024 1:56 AM WAITER/WAITRESS CAFETERIA 05/29/2024 1:56 AM WAITER/WAITRESS CAFETERIA Jake Moore MD LAB POCT ORDERABL ES - DEVICE Final Result Performing Organization Address [facility]/ZIP Co de Phone Number [facility] [place] [address] * POCT glucose (05/28/2024 8:31 PM WAITER/WAITRESS CAFETERIA) Glucose, POC 169 70 - 199 mg/dL Blood 05/28/2024 8:31 PM WAITER/WAITRESS CAFETERIA 05/28/2024 8:31 PM WAITER/WAITRESS CAFETERIA Jake Moore MD LAB POCT ORDERABL ES - DEVICE Final Result Performing Organization Address [facility] Co de Phone Number [facility] Department [place] [address] * POCT glucose (05/28/2024 12:28 PM WAITER/WAITRESS CAFETERIA) Glucose, POC 129 70 - 199 mg/dL Comment:Pre Meal Glucose comment 1 Pre Meal [facility] Blood 05/28/2024 12:2 8 PM WAITER/WAITRESS CAFETERIA 05/28/2024 12:28 PM WAITER/WAITRESS CAFETERIA Jake Moore MD LAB POCT ORDERABL ES - DEVICE Final Result Performing Organization Address [facility] de Phone Number [facility] [place] [address] * US Ob 14 Weeks Or Over (05/28/2024 9:41 AM WAITER/WAITRESS CAFETERIA) Pathologist [facility] Fetus# Fetus1 [facility] Estimated Weight 1,123 g&grams [facility] Placenta Details anterior, Previa-no, no placental masses [facility] Presentation Breech [facility] Anatomical Region Laterality Modality Abdomen N/A Ultrasound 05/28/2024 9:42 AM WAITER/WAITRESS CAFETERIA Impressions 05/28/2024 11:22 AM WAITER/WAITRESS CAFETERIA IUP - 27w 3d per current biometry [...] 50gm 1hr gestational screen (05/28/2024 6:16 AM WAITER/WAITRESS CAFETERIA) GTT 50g gest screen 242(H) <=140 mg/dL [...] revised on 2020. Blood 05/28/2024 6:16 AM WAITER/WAITRESS CAFETERIA 05/28/2024 6:28 AM WAITER/WAITRESS CAFETERIA Jake Moore MD LAB BLOOD ORDERAB LES Final Result [facility] Department [place] [address] * (ABNORMAL) CBC without differential (05/28/2024 6:16 AM WAITER/WAITRESS CAFETERIA) WBC 17.0(H) 3.8 - 9.9 K/cumm Hgb 10.8(L) 11.9 - 15.5 g/dL [facility] Hct 32.0(L) 35.6 - 45.5 % [facility] Plt 253 150 - 400 K/cumm [facility] MPV 9.9 9.1 - 12.3 fL [facility] RBC 3.44(L) 3.90 - 5.20 M/cumm [facility] MCV 93.0 81.3 - 96.4 fL [facility] MCH 31.4 27.1 - 33.3 pg [facility] MCHC 33.8 32.3 - 35.7 g/dL [facility] RDW CV 14.0 11.1 - 14.9 % [facility] RDW SD 47.3 35.7 - 48.1 fL [facility] NRBC abs 0.00 0.00 - 0.01 K/cumm [facility] Blood 05/28/2024 6:16 AM WAITER/WAITRESS CAFETERIA 05/28/2024 6:28 AM WAITER/WAITRESS CAFETERIA Jake Moore MD LAB BLOOD ORDERAB LES Final Result Performing Organization Address [facility] Co de Phone Number [facility] Department [place] [address] * Group B streptococcal culture Vaginal/Rectal (05/27/2024 9:43 PM WAITER/WAITRESS CAFETERIA) Report Final Report: Negative Vaginal/Rectal 05/27/2024 9: 43 PM WAITER/WAITRESS CAFETERIA 05/27/2024 10:48 PM WAITER/WAITRESS CAFETERIA Narrative [facility] - 05/30/2024 9:47 PM WAITER/WAITRESS CAFETERIA Testing performed by [facility] ([phone]). Jake Moore MD LAB MICROBIOLOGY - GENERAL ORDERABLES Final Result Performing Organization Address City/[facility]/ZIP Co de Phone Number [facility] Department [place] [address] * N. gonorrhoeae/C. trachomatis Amplification Urine (05/27/2024 9:42 PM WAITER/WAITRESS CAFETERIA) C. trachomatis Not Detected Not Detected [facility] N. gonorrhoeae Not Detected Not Detected [facility] Comment: Interpretive Data This assay detects Chlamydia trachomatis and Neisseria gonorrhoeae by nucleic acid amplification testing (NAAT). This assay has been cleared by the [place] Food and Drug administration. The performance characteristics of this test have been verified by the [facility] Infectious Disease laboratory. The performance characteristics of this test have not been evaluated in individuals less than 14 years of age. Current Interpretive Data last revised 2023. Urine (None) 05/27/2024 9:42 PM WAITER/WAITRESS CAFETERIA 05/27/2024 10:08 PM WAITER/WAITRESS CAFETERIA Jake Moore MD LAB MICROBIOLOGY - GENERAL ORDERABLES Final Result Performing Organization Address [facility] Co de Phone Number [facility] [place] [address] [facility] * Trichomonas vaginalis PCR Urine (05/27/2024 9:42 PM WAITER/WAITRESS CAFETERIA) Trichomonas DNA Not Detected Not Detected [facility] Comment: Interpretive Data This assay detects Trichomonas vaginalis by nucleic acid amplification testing (NAAT). This assay has been cleared by the [facility] Food and Drug administration. The performance characteristics of this test have been verified by the [facility] Infectious Disease laboratory. Excess blood in specimens may be inhibitory and result in false negative results. The performance of this test has not been evaluated in women or individuals less than 18 years of age. Current Interpretive Data last revised 2023. Urine 05/27/2024 9:42 PM WAITER/WAITRESS CAFETERIA 05/27/2024 10:08 PM WAITER/WAITRESS CAFETERIA Jake Moore MD LAB MICROBIOLOGY - GENERAL ORDERABLES Final Result Performing Organization Address [facility] Co de Phone Number [facility] Department [place] [address] [facility] * Check Sample (05/27/2024 9:42 PM WAITER/WAITRESS CAFETERIA) ABO Rh O Positive [facility] HCLL OTHER 05/27/2024 9:42 PM WAITER/WAITRESS CAFETERIA 05/27/2024 10:30 PM WAITER/WAITRESS CAFETERIA Jake Moore MD LAB BLOOD ORDERAB LES Final Result Performing Organization Address [facility] Co de Phone Number [facility] [place] [address] [facility] * (ABNORMAL) Protein / creatinine ratio, urine, random (05/27/2024 9:42 PM WAITER/WAITRESS CAFETERIA) Protein, ur, quant 21.6 mg/dL Comment: Interpretive Data No reference range established. Current interpretive data was last revised 2018. Creatinine Ur 97.9 mg/dL [facility] Comment: Interpretive Data No reference range established. Current interpretive data was last revised 2018. Protein/creatinin e ratio 220.6(H) 0.0 - 180.0 mg/g CR [facility] Urine 05/27/2024 9:42 PM WAITER/WAITRESS CAFETERIA 05/27/2024 10:06 PM WAITER/WAITRESS CAFETERIA Jake Moore MD LAB URINE ORDERAB LES Final Result Performing Organization Address [facility] de Phone Number [facility] [place] [address] * (ABNORMAL) Drugs of Abuse Screen, Urine with Reflex Confirmation (05/27/2024 9:37 PM WAITER/WAITRESS CAFETERIA) Pathologist [facility] Amphetamine, ur Not Detected CutOff 500ng/mL Comment: Interpretive Data - Amphetamines: Samples containing greater than 500 ng/mL d-methamphetamine or other cross-reacting amphetamine compounds are reported as positive. Amphetamine immunoassays are subject to significant false positive rates due to cross-reactivity of non-amphetamine drugs. Confirmatory testing required for definitive results. Current Interpretive Data was last reviewed 2022. Barbiturates, ur Not Detected CutOff 200ng/mL [facility] Comment: Interpretive Data - Barbiturates: Samples containing greater than 200 ng/mL secobarbital or other cross-reacting barbiturate compounds are reported as positive. False positive and false negative results are possible. Confirmatory testing required for definitive results. Current Interpretive Data was last reviewed 2022. Benzodiazepines, ur Not Detected CutOff 100ng/mL [facility] Comment: Interpretive Data - Benzodiazepines: Samples containing [...] Cocaine, ur Not Detected CutOff 150ng/mL [facility] Comment: Interpretive Data - Cocaine: Samples containing greater than 150 ng/mL benzoylecgonine or other cross- reacting compounds are reported as positive. False positive and false negative results are possible. Confirmatory testing required for definitive results. Current Interpretive Data was last reviewed 2022. Fentanyl, Ur Not Detected CutOff 5 ng/mL [facility] Comment: Interpretive Data - Fentanyl: Samples containing greater than 5 ng/mL norfentanyl, fentanyl, or other cross-reacting fentanyl compounds are reported as positive. False positive and false negative results are possible. Confirmatory testing required for definitive results. Current Interpretive Data was last reviewed 2023. Methadone, ur Not Detected CutOff 300ng/mL [facility] Comment: Interpretive Data - Methadone: Samples containing [...] Phencyclidine, ur Not Detected CutOff 25 ng/mL [facility] Comment: Interpretive Data - Phencyclidine: Samples containing greater than 25 ng/mL phencyclidine or other cross-reacting compounds are reported as positive. False positive and false negative results are possible. Confirmatory testing required for definitive results. Current Interpretive Data was last reviewed 2022. Urine Creatinine 98 mg/dL [facility] Comment: Interpretive Data Urine Creatinine: < 10 mg/dL is extremely dilute = or > 10 but < 20 mg/dL is dilute = or > 20 mg/dL is normal Current Interpretive Data was last revised on 2017. Urine 05/27/2024 9:37 PM WAITER/WAITRESS CAFETERIA 05/27/2024 10:04 PM WAITER/WAITRESS CAFETERIA Narrative [facility] - 05/27/2024 10:38 PM WAITER/WAITRESS CAFETERIA Drug of Abuse screening is performed by immunoassay for medical purposes only. This is not to be used for Pain Management purposes. If Detected, confirmation testing will be performed for Amphetamines, Cocaine, Fentanyl, Methadone, Opiates, Oxycodone or Phencyclidine. Jake Moore MD LAB URINE ORDERAB LES Final Result [facility] Department [place] [address] * (ABNORMAL) Hemoglobin analysis by electrophoresis (05/27/2024 8:29 PM WAITER/WAITRESS CAFETERIA) RBC 3.20(L) 3.90 - 5.20 M/cumm Hgb 10.0(L) 11.9 - 15.5 g/dL [facility] MCV 92.8 81.3 - 96.4 fL [facility] Rdw 14.1 11.1 - 14.9 % [facility] Hgb electrophores is, interp Normal Hemoglobin Pattern - For Age [facility] Hgb A 97.6 96.0 - 98.5 % [facility] Hgb A2 2.4 1.5 - 3.2 % [facility] Hgb F <0.4 0.0 - 0.9 % [facility] Blood 05/27/2024 8:29 PM WAITER/WAITRESS CAFETERIA 05/27/2024 8:46 PM WAITER/WAITRESS CAFETERIA us Smita Erazo MD LAB BLOOD ORDERABLES Final Result Performing Organization Address City/[facility]/ZIP Co de Phone Number [facility] Department [place] [address] * eGFR (05/27/2024 8:17 PM WAITER/WAITRESS CAFETERIA) eGFR >90 >=60 mL/min/1. 73 m2 Comment: [...] last reviewed 2021. Blood 05/27/2024 8:17 PM WAITER/WAITRESS CAFETERIA 05/27/2024 8:28 PM WAITER/WAITRESS CAFETERIA us Jake Moore MD LAB BLOOD ORDERAB LES Final Result Performing Organization Address City/[facility]/ZIP Co de Phone Number [facility] Department [place] [address] * HIV 1/2 Antibody plus p24 Antigen Blood (05/27/2024 8:17 PM WAITER/WAITRESS CAFETERIA) HIV 1/2 ab + p24 ag Nonreactive Nonreactive Comment:Nonreactive for HIV- 1 antigen and HIV-1/HIV-2 antibodies. No laboratory evidence of HIV infection. If acute HIV infection is suspected, consider testing for HIV-1 RNA. Current interpretive data was last revised on 21. Blood 05/27/2024 8:17 PM WAITER/WAITRESS CAFETERIA 05/27/2024 8:28 PM WAITER/WAITRESS CAFETERIA Jake Moore MD LAB MICROBIOLOGY - GENERAL ORDERABLES Final Result Performing Organization Address City/[facility] Co de Phone Number [facility] [place] [address] * Hepatitis C antibody Blood (05/27/2024 8:17 PM WAITER/WAITRESS CAFETERIA) Pathologist [facility] Hep C Ab Nonreactive Nonreactive Comment:Antibodies to HCV no t detected. Does NOT exclude the possibility of recent exposure to HCV. Current interpretive data was last revised on 21 Blood 05/27/2024 8:17 PM WAITER/WAITRESS CAFETERIA 05/27/2024 8:28 PM WAITER/WAITRESS CAFETERIA Jake Moore MD LAB MICROBIOLOGY - GENERAL ORDERABLES Final Result Performing Organization Address City/[facility] Co de Phone Number [facility] [place] [address] * Hepatitis B core antibody, IgM Blood (05/27/2024 8:17 PM WAITER/WAITRESS CAFETERIA) Pathologist [facility] Hep B core IgM Nonreactive Nonreactive Blood 05/27/2024 8:17 PM WAITER/WAITRESS CAFETERIA 05/27/2024 8:28 PM WAITER/WAITRESS CAFETERIA Jake Moore MD LAB MICROBIOLOGY - GENERAL ORDERABLES Final Result Performing Organization Address City/[facility] Co de Phone Number [facility] Department [place] [address] * (ABNORMAL) Rubella IgG antibody Blood (05/27/2024 8:17 PM WAITER/WAITRESS CAFETERIA) Pathologist [facility] Rubella IgG Nonreactiv e(A) Comment:Nonreactive: No dete ctable antibody to rubella. Such individuals are presumed to be uninfected with rubella and to be susceptible to primary infection. Blood 05/27/2024 8:17 PM WAITER/WAITRESS CAFETERIA 05/27/2024 8:32 PM WAITER/WAITRESS CAFETERIA Jake Moore MD LAB MICROBIOLOGY - GENERAL ORDERABLES Final Result Performing Organization Address City/[facility]/ZIP Co de Phone Number [facility] [place] [address] * RPR Blood (05/27/2024 8:17 PM WAITER/WAITRESS CAFETERIA) Pathologist [facility] RPR Nonreactive Nonreactive Blood 05/27/2024 8:17 PM WAITER/WAITRESS CAFETERIA 05/27/2024 8:32 PM WAITER/WAITRESS CAFETERIA Jake Moore MD LAB MICROBIOLOGY - GENERAL ORDERABLES Final Result [facility] Department [place] [address] * Hepatitis B surface antibody (immune status) Blood (05/27/2024 8:17 PM WAITER/WAITRESS CAFETERIA) Pathologist [facility] HBsAb (immune status) Reactive Comment:This result is consi stent with immunity to Hepatitis B Virus when used in the setting of routine screening. Current interpretive data was last revised on 21 HBsAb (immune status) index 869.0 mIUnits/m L [facility] Blood 05/27/2024 8:17 PM WAITER/WAITRESS CAFETERIA 05/27/2024 8:28 PM WAITER/WAITRESS CAFETERIA Jake Moore MD LAB MICROBIOLOGY - GENERAL ORDERABLES Final Result Performing Organization Address [facility] Co de Phone Number [facility] Department [place] [address] * (ABNORMAL) CBC without differential (05/27/2024 8:17 PM WAITER/WAITRESS CAFETERIA) Pathologist [facility] WBC 22.4(H) 3.8 - 9.9 K/cumm Hgb 10.7(L) 11.9 - 15.5 g/dL [facility] Hct 31.9(L) 35.6 - 45.5 % [facility] Plt 250 150 - 400 K/cumm [facility] MPV 9.8 9.1 - 12.3 fL [facility] RBC 3.47(L) 3.90 - 5.20 M/cumm [facility] MCV 91.9 81.3 - 96.4 fL [facility] MCH 30.8 27.1 - 33.3 pg [facility] MCHC 33.5 32.3 - 35.7 g/dL [facility] RDW CV 14.0 11.1 - 14.9 % [facility] RDW SD 46.6 35.7 - 48.1 fL [facility] NRBC abs 0.00 0.00 - 0.01 K/cumm [facility] Blood 05/27/2024 8:17 PM WAITER/WAITRESS CAFETERIA 05/27/2024 8:32 PM WAITER/WAITRESS CAFETERIA Jake Moore MD LAB BLOOD ORDERAB LES Final Result Performing Organization Address City/[facility]/ZIP Co de Phone Number [facility] Department [place] [address] * Type and screen (05/27/2024 8:17 PM WAITER/WAITRESS CAFETERIA) Pathologist [facility] ABO Rh O Positive Jas, indirect Negative [facility] Blood 05/27/2024 8:17 PM WAITER/WAITRESS CAFETERIA 05/27/2024 8:29 PM WAITER/WAITRESS CAFETERIA Narrative [facility] - 05/27/2024 9:45 PM WAITER/WAITRESS CAFETERIA Has the patient had Daratumumab or Isatuximab in the past 6 months?->Unknown Jake Moore MD LAB BLOOD BANK TE ST ORDERABLES Final Result Performing Organization Address City/[facility]/ZIP Co de Phone Number [facility] Department [place] [address] * Varicella Zoster IgG antibody Blood (05/27/2024 8:17 PM WAITER/WAITRESS CAFETERIA) [facility] VZV IgG Reactive Reactive Comment:Reactive: Results guerrero ggest response to immunization or prior exposure to the virus. Blood 05/27/2024 8:17 PM WAITER/WAITRESS CAFETERIA 05/27/2024 8:32 PM WAITER/WAITRESS CAFETERIA Result [facility] Jake Moore MD LAB MICROBIOLOGY - GENERAL ORDERABLES Final Result Performing Organization Address [facility] [place] [address] * (ABNORMAL) Hemoglobin A1c (05/27/2024 8:17 PM WAITER/WAITRESS CAFETERIA) [facility] Hgb A1C 5.8(H) 4.0 - 5.6 % Estimated Average Glucose 120 mg/dL [facility] Comment: The ADA recommends reporting an estimated Average Glucose (eAG) with all Hemoglobin A1c results using the equation derived from a study of 507 normal and diabetic adults. Minority populations were underrepresented and children were not included. (Diabetes Care 2020; 43(S1): S66-S76). The eAG is not equivalent to a fasting glucose. Blood 05/27/2024 8:17 PM WAITER/WAITRESS CAFETERIA 05/27/2024 8:35 PM WAITER/WAITRESS CAFETERIA Result [facility] Jake Moore MD LAB BLOOD ORDERAB LES Final Result Performing Organization Address [facility] Co de Phone Number [facility] [place] [address] * (ABNORMAL) Comprehensive metabolic panel (05/27/2024 8:17 PM WAITER/WAITRESS CAFETERIA) Sodium 137 135 - 145 mmol/L Potassium, pl 3.5 3.3 - 4.9 mmol/L [facility] Chloride 103 97 - 110 mmol/L [facility] CO2 23 22 - 32 mmol/L [facility] Anion gap 11 2 - 15 mmol/L [facility] BUN 6 6 - 25 mg/dL [facility] Creatinine 0.44(L) 0.60 - 1.10 mg/dL [facility] Glucose 126 70 - 199 mg/dL [facility] Comment: Interpretive Data Fasting glucose >/= 126 [...] 2022. Calcium 8.3(L) 8.5 - 10.3 mg/dL [facility] Bilirubin, total 0.2 0.1 - 1.2 mg/dL [facility] Protein, pl 6.0(L) 6.5 - 8.5 g/dL [facility] Albumin 3.0(L) 3.5 - 5.0 g/dL [facility] Alk phos 70 40 - 130 Units/L [facility] ALT 24 7 - 45 Units/L [facility] AST 21 10 - 45 Units/L [facility] Blood 05/27/2024 8:17 PM WAITER/WAITRESS CAFETERIA 05/27/2024 8:28 PM WAITER/WAITRESS CAFETERIA us Jake Moore MD LAB BLOOD ORDERAB LES Final Result [facility] Department [place] [address] * US Ob Limited (05/27/2024 4:19 PM WAITER/WAITRESS CAFETERIA) Anatomical Region Laterality Modality Abdomen N/A Ultrasound 05/27/2024 5:19 PM WAITER/WAITRESS CAFETERIA Narrative 05/27/2024 5:26 PM WAITER/WAITRESS CAFETERIA EXAM DESCRIPTION: US OB LIMITED REASON FOR [...] Chetan Andrea M.D. LL T: Report ID: [id number] Reading Location: [id number] Procedure Note Chetan Andrea MD - 05/27/2024 [...] Chetan Andrea M.D. LL T: Report ID: [id number] Reading Location: [id number] us Blake Taveras MD IMG OB US PROCEDURES Fi nal Result * US Kidney Limited (05/27/2024 4:05 PM WAITER/WAITRESS CAFETERIA) Anatomical Region Laterality Modality Kidney N/A Ultrasound 05/27/2024 5:25 PM WAITER/WAITRESS CAFETERIA Narrative 05/27/2024 5:28 PM WAITER/WAITRESS CAFETERIA EXAM DESCRIPTION: US RENAL LIMITED REASON FOR [...] by Chetan Andrea M.D. T: Report ID: [id number] Reading Location: [place] [address] Procedure Note Chetan Andrea MD - 05/27/2024 [...] by Chetan Andrea M.D. T: Report ID: [id number] Reading Location: [place] [address] us Blake Taveras MD IMG US PROCEDURES Final Result * US RUQ (05/27/2024 4:00 PM WAITER/WAITRESS CAFETERIA) Anatomical Region Laterality Modality Abdomen N/A Ultrasound 05/27/2024 5:16 PM WAITER/WAITRESS CAFETERIA Narrative 05/27/2024 5:19 PM WAITER/WAITRESS CAFETERIA EXAM DESCRIPTION: US RUQ REASON FOR STUDY: [...] thickening or pericholecystic fluid. No positive sonographic [place] sign reported. BILIARY: There is no intrahepatic or extrahepatic biliary ductal dilatation. Common bile duct measures 6 mm in diameter. RIGHT KIDNEY: Normal size. Normal echogenicity. No solid mass or cyst. No hydronephrosis. Measures 11.3 cm in length. OTHER: No other significant findings. IMPRESSION: No acute abnormality. THIS IS AN ELECTRONICALLY VERIFIED FINAL REPORT 05/27/2024 5:19 PM - Electronically signed by Chetan Andrea M.D. T: Report ID: [id number] Reading Location: [place] [address] Procedure Note Chetan Andrea MD - 05/27/2024 [...] wall thickening or pericholecystic fluid. No positivesonographic [place] sign reported. BILIARY: There is no intrahepatic or extrahepatic biliary ductaldilatation. Common bile duct measures 6 mm in diameter. RIGHT KIDNEY: Normal size. Normal echogenicity. No solid mass or cyst.No hydronephrosis. Measures 11.3 cm in length. OTHER: No other significant findings. IMPRESSION: No acute abnormality. THIS IS AN ELECTRONICALLY VERIFIED FINAL REPORT 05/27/2024 5:19 PM - Electronically signed by Chetan Andrea M.D. LL T: Report ID: [id number] Reading Location: [id number] Blake Taveras MD [facility] US PROCEDURES Final Result * US Appendix (05/27/2024 3:45 PM WAITER/WAITRESS CAFETERIA) Anatomical Region Laterality Modality Abdomen N/A Ultrasound 05/27/2024 5:28 PM WAITER/WAITRESS CAFETERIA Narrative 05/27/2024 5:29 PM WAITER/WAITRESS CAFETERIA EXAM DESCRIPTION: US APPENDIX REASON FOR STUDY: [...] 5:29 PM - Electronically signed by Chetan ROYAL T: Report ID: [id number] Reading Location: [id number] Procedure Note Chetan Andrea MD - 05/27/2024 [...] 5:29 PM - Electronically signed by Chetan ROYAL T: Report ID: [id number] Reading Location: [id number] Blake Taveras MD [facility] US PROCEDURES Final Result * Influenza A/B, RSV, and COVID-19 PCR Nasopharyngeal (05/27/2024 2:49 PM WAITER/WAITRESS CAFETERIA) Pathologist [facility] COVID-19 RNA Negative Negative Influenza A RNA Negative Negative [facility] Influenza B RNA Negative Negative [facility] RSV RNA Negative Negative [facility] Comment: Interpretive data: Testing performed by [facility]. This test is performed using the Strut Xpert Xpress CoV-2/Flu/RSV plus assay. This is a multiplex, real-time reverse transcriptase PCR assay intended for the qualitative detection of nucleic acid from SARS-CoV-2, influenza A, influenza B, and respiratory syncytial virus. This assay has been cleared by the [place] Food and Drug administration. The performance characteristics have been verified by the [facility]. Results must be considered in the clinical context, and a negative result does not rule out infection. Interpretive Data last revised 2023 Nasopharyngeal 05/27/2024 2: 49 PM WAITER/WAITRESS CAFETERIA 05/27/2024 2:53 PM WAITER/WAITRESS CAFETERIA Narrative [facility] - 05/27/2024 3:36 PM WAITER/WAITRESS CAFETERIA Is the Patient experiencing symptoms consistent with COVID?->Unknown Martinez Weber MD LAB MICROBIOLOGY - GENERAL ORDERABLES Final Result Performing Organization Address [facility]/ZIP Co de Phone Number [address] [place] [address] * ABO / Rh Confirmation Testing (05/27/2024 2:49 PM WAITER/WAITRESS CAFETERIA) [facility] ABO/Rh Confirmation O Positive B Blood 05/27/2024 2:49 PM WAITER/WAITRESS CAFETERIA 05/27/2024 2:53 PM WAITER/WAITRESS CAFETERIA us Demi PEARSON LAB BLOOD ORDERABLES Final R esult [address] [place] [address] [facility] * Blood culture Blood Peripheral (05/27/2024 2:49 PM WAITER/WAITRESS CAFETERIA) Pathologist [facility] Report Final Report: No growth Comment:Testing performed by : [facility], [address] [place]., [address] Blood (Peripheral) 05/27/2024 2:49 PM WAITER/WAITRESS CAFETERIA 05/27/2024 6:54 PM WAITER/WAITRESS CAFETERIA Narrative [facility] - 06/01/2024 7:00 AM WAITER/WAITRESS CAFETERIA From a different site than #1. Draw [...] performance characteristics have been verified by the [facility] Microbiology Laboratory. For questions about this culture, contact the Microbiology Laboratory at [phone]. Interpretive data was last revised on 24. Martinez Weber MD LAB MICROBIOLOGY - GENERAL ORDERABLES Final Result Performing Organization Address City/[facility]/ZIP Co de Phone Number [facility] [address] [facility] Department [place] [address] * Sepsis Lactate w/ Reflex (05/27/2024 2:47 PM WAITER/WAITRESS CAFETERIA) [facility] Sepsis Lactate 1.4 0.7 - 2.0 mmol/L Blood 05/27/2024 2:47 PM WAITER/WAITRESS CAFETERIA 05/27/2024 2:50 PM WAITER/WAITRESS CAFETERIA Martinez Weber MD LAB BLOOD ORDERABLES Final Result Performing Organization Address [facility]/State/ZIP Co de Phone Number [place] [address] [facility] Department [place] [address] * Blood culture Blood Peripheral (05/27/2024 2:47 PM WAITER/WAITRESS CAFETERIA) Report Final Report: No growth Comment:Testing performed by : [facility], [address] [facility], [place]., [address] Blood (Peripheral) 05/27/2024 2:47 PM WAITER/WAITRESS CAFETERIA 05/27/2024 6:54 PM WAITER/WAITRESS CAFETERIA Narrative [facility] - 06/01/2024 7:00 AM WAITER/WAITRESS CAFETERIA Draw Blood cultures before administration of Antibiotics [...] performance characteristics have been verified by the [facility] Microbiology Laboratory. For questions about this culture, contact the Microbiology Laboratory at [phone]. Interpretive data was last revised on 24. us Martinez Weber MD LAB MICROBIOLOGY - GENERAL ORDERABLES Final Result [facility] [address] [facility] Department [place] [address] * eGFR (05/27/2024 1:14 PM WAITER/WAITRESS CAFETERIA) eGFR >90 >=60 mL/min/1. 73 m2 Comment: [...] of Race in Diagnosing Kidney Disease, JASN 202). The CKD-EPI equation should not be used for patients with unstable renal function and has not been validated in children and those over 70. Current interpretive data was last reviewed 2021. Blood 05/27/2024 1:14 PM WAITER/WAITRESS CAFETERIA 05/27/2024 1:18 PM WAITER/WAITRESS CAFETERIA us Demi PEARSON LAB BLOOD ORDERABLES Final R esult [place] [id number] [facility] Department [place] [address] * (ABNORMAL) Differential, auto (05/27/2024 1:14 PM WAITER/WAITRESS CAFETERIA) Pathologist [facility] Neutrophil abs 17.2(H) 1.5 - 6.5 K/cumm Imm gran abs 1.4(H) 0.0 - 0.1 K/cumm [facility] Lymphocyte abs 3.2 0.8 - 3.3 K/cumm [facility] Monocyte abs 1.4(H) 0.2 - 0.8 K/cumm [facility] Eosinophil abs 0.2 0.0 - 0.5 K/cumm [facility] Basophil abs 0.1 0.0 - 0.1 K/cumm [facility] Neutrophil pct 73.1 % [facility] Comment: Interpretive Data Percent cell count reference ranges are not reported, since discordance with absolute values may lead to misinterpretation of CBC data. Current Interpretive Data was last revised on 2017. Imm gran pct 5.8 % [facility] Comment: Interpretive Data Percent cell count reference ranges are not reported, since discordance with absolute values may lead to misinterpretation of CBC data. Current Interpretive Data was last revised on 2017. Lymphocyte pct 13.7 % [facility] Comment: Interpretive Data Percent cell count reference ranges are not reported, since discordance with absolute values may lead to misinterpretation of CBC data. Current Interpretive Data was last revised on 2017. Monocyte pct 6.0 % [facility] Comment: Interpretive Data Percent cell count reference ranges are not reported, since discordance with absolute values may lead to misinterpretation of CBC data. Current Interpretive Data was last revised on 2017. Eosinophil pct 0.9 % [facility] Comment: Interpretive Data Percent cell count reference ranges are not reported, since discordance with absolute values may lead to misinterpretation of CBC data. Current Interpretive Data was last revised on 2017. Basophil pct 0.5 % [facility] Comment: Interpretive Data Percent cell count reference ranges are not reported, since discordance with absolute values may lead to misinterpretation of CBC data. Current Interpretive Data was last revised on 2017. Blood 05/27/2024 1:14 PM WAITER/WAITRESS CAFETERIA 05/27/2024 1:18 PM WAITER/WAITRESS CAFETERIA us Demi PEARSON LAB BLOOD ORDERABLES Final R esult [facility] [address] [facility] Department of Laboratories [place], [place] [id number] * (ABNORMAL) CBC with auto differential (05/27/2024 1:14 PM WAITER/WAITRESS CAFETERIA) WBC 23.5(H) 3.8 - 9.9 K/cumm Hgb 12.1 11.9 - 15.5 g/dL [facility] Hct 36.3 35.6 - 45.5 % [facility] Plt 290 150 - 400 K/cumm [facility] MPV 9.7 9.1 - 12.3 fL [facility] RBC 3.91 3.90 - 5.20 M/cumm [facility] MCV 92.8 81.3 - 96.4 fL [facility] MCH 30.9 27.1 - 33.3 pg [facility] MCHC 33.3 32.3 - 35.7 g/dL [facility] RDW CV 14.0 11.1 - 14.9 % [facility] RDW SD 46.8 35.7 - 48.1 fL [facility] NRBC abs 0.00 0.00 - 0.01 K/cumm [facility] Blood 05/27/2024 1:14 PM WAITER/WAITRESS CAFETERIA 05/27/2024 1:18 PM WAITER/WAITRESS CAFETERIA Demi PEARSON LAB BLOOD ORDERABLES Edited Result - Final Performing Organization Address [facility] Co de Phone Number [place] [address] [place] [address] * ABO/Rh (05/27/2024 1:14 PM WAITER/WAITRESS CAFETERIA) ABO/Rh O Positive Blood 05/27/2024 1:14 PM WAITER/WAITRESS CAFETERIA 05/27/2024 1:18 PM WAITER/WAITRESS CAFETERIA Narrative [facility] - 05/27/2024 1:55 PM WAITER/WAITRESS CAFETERIA Has the patient had Daratumumab or Isatuximab in the past 6 months?->Unknown Demi PEARSON LAB BLOOD BANK TEST ORDERABL ES Final Result Performing Organization Address [facility] de Phone Number CARLA[address] [employer] [place] [address] * Manual Differential (05/27/2024 1:14 PM WAITER/WAITRESS CAFETERIA) Differential Auto RBC morphology Normal [facility] Platelet estimate Automated Count Confirmed [facility] Blood 05/27/2024 1:14 PM WAITER/WAITRESS CAFETERIA 05/27/2024 1:18 PM WAITER/WAITRESS CAFETERIA Demi PEARSON LAB BLOOD ORDERABLES Final R esult Performing Organization Address [facility] Co de Phone Number [place] [address] [employer] [place] [address] * Antibody screen (05/27/2024 1:14 PM WAITER/WAITRESS CAFETERIA) Pathologist [facility] Jas, indirect, Gel Interpretation Negative ABSC Blood 05/27/2024 1:14 PM WAITER/WAITRESS CAFETERIA 05/27/2024 1:18 PM WAITER/WAITRESS CAFETERIA Narrative [facility] - 05/27/2024 1:55 PM WAITER/WAITRESS CAFETERIA Has the patient had Daratumumab or Isatuximab in the past 6 months?->Unknown Demi PEARSON LAB BLOOD BANK TEST ORDERABL ES Final Result Performing Organization Address [facility] Co de Phone Number [address] [place] [address] * Phosphorus (05/27/2024 1:14 PM WAITER/WAITRESS CAFETERIA) [facility] Phosphorus, pl 4.2 2.3 - 4.5 mg/dL Blood 05/27/2024 1:14 PM WAITER/WAITRESS CAFETERIA 05/27/2024 1:18 PM WAITER/WAITRESS CAFETERIA Demi PEARSON LAB BLOOD ORDERABLES Final R esult Performing Organization Address [facility] Co de Phone Number [address] [place] [address] * Magnesium (05/27/2024 1:14 PM WAITER/WAITRESS CAFETERIA) [facility] Magnesium 1.9 1.4 - 2.5 mg/dL Blood 05/27/2024 1:14 PM WAITER/WAITRESS CAFETERIA 05/27/2024 1:18 PM WAITER/WAITRESS CAFETERIA Demi PEARSON LAB BLOOD ORDERABLES Final R esult Performing Organization Address [facility] Co de Phone Number [address] [place] [address] * (ABNORMAL) Comprehensive metabolic panel (05/27/2024 1:14 PM WAITER/WAITRESS CAFETERIA) [facility] Sodium 136 135 - 145 mmol/L Potassium, pl 4.0 3.3 - 4.9 mmol/L [facility] Chloride 101 97 - 110 mmol/L [facility] CO2 22 22 - 32 mmol/L [facility] Anion gap 13 2 - 15 mmol/L [facility] BUN 8 6 - 25 mg/dL [facility] Creatinine 0.39(L) 0.60 - 1.10 mg/dL [facility] Glucose 91 70 - 199 mg/dL [facility] Comment: Interpretive Data Fasting glucose >/= [...] classification and Diagnosis of Diabetes Diabetes Care 202; 46: S19-S40. Current interpretive data was last revised 2022. Calcium 10.0 8.5 - 10.3 mg/dL [facility] Bilirubin, total 0.2 0.1 - 1.2 mg/dL [facility] Protein, pl 6.7 6.5 - 8.5 g/dL [facility] Albumin 3.5 3.5 - 5.0 g/dL [facility] Alk phos 89 40 - 130 Units/L [facility] ALT 24 7 - 45 Units/L [facility] AST 21 10 - 45 Units/L [facility] Blood 05/27/2024 1:14 PM WAITER/WAITRESS CAFETERIA 05/27/2024 1:18 PM WAITER/WAITRESS CAFETERIA us Demi PEARSON LAB BLOOD ORDERABLES Final R esult [facility] [address] [facility] Department [place] [address] * (ABNORMAL) Urinalysis reflex to microscopic and culture Urine (05/27/2024 12:54 PM WAITER/WAITRESS CAFETERIA) Color, ur Yellow Yellow Clarity, ur Cloudy(A) Clear [facility] Specific gravity, ur 1.019 1.003 - 1.030 [facility] pH, urine 6.0 [facility] Comment: Interpretive Data U rine pH is affected by diet, medications, systemic acid-base disturbances, and renal tubular function. pH may affect urinary stone formation. For example, urine pH below 6.0 may help reduce the tendency for calcium phosphate stones and pH greater than 6.0 may reduce the tendency for uric acid stone formation. Source: [facility] Current Interpretive Data was last revised on 2017 Protein, ur ql Negative Negative [facility] Glucose, ur ql 2+(A) Negative [facility] Ketones, ur Negative Negative [facility] Bilirubin, ur Negative Negative [facility] Blood, ur Negative Negative [facility] Urobilinogen, ur <2.0 <2.0 mg/dL [facility] Nitrite, ur Positive(A) Negative [facility] Leukocyte esterase, ur 3+(A) Negative [facility] UA reflex comment Reflex to microscopic UA will be performed. [facility] Urine 05/27/2024 12:5 4 PM WAITER/WAITRESS CAFETERIA 05/27/2024 12:57 PM WAITER/WAITRESS CAFETERIA us Demi PEARSON LAB MICROBIOLOGY - GENERAL O RDERABLES Final Result Performing Organization Address [facility] de Phone Number [address] [place] [address] * (ABNORMAL) Urinalysis, microscopic only (05/27/2024 12:54 PM WAITER/WAITRESS CAFETERIA) WBC, ur >50(A) 0 - 5 /HPF RBC, ur 3-5(A) 0 - 2 /HPF [facility] Epithelial cells, squamous, ur 1-5 0 - 5 /HPF [facility] Bacteria, ur Trace(A) [facility] Mucous, ur Present(A) [facility] Culture Reflex Comment Reflex to urine culture will be performed. [facility] Urine 05/27/2024 12:5 4 PM WAITER/WAITRESS CAFETERIA 05/27/2024 12:57 PM WAITER/WAITRESS CAFETERIA Demi PEARSON LAB URINE ORDERABLES Final R esult Performing Organization Address [facility] Co de Phone Number [place] [phone] Department [place] [address] * (ABNORMAL) Urine culture Urine (05/27/2024 12:54 PM WAITER/WAITRESS CAFETERIA) Report Final Report: Greater than or equal to 100,000 colonies/mL of Escherichia coli (.) Comment:Testing performed by : [facility], [address] [place]., [address] Organism ESCHERICHIA COLI [facility] Urine 05/27/2024 12:5 4 PM WAITER/WAITRESS CAFETERIA 05/27/2024 4:31 PM WAITER/WAITRESS CAFETERIA Narrative [facility] - 05/30/2024 6:17 AM WAITER/WAITRESS CAFETERIA Urine culture reflexed based upon urinalysis results. Testing performed by [facility] ([phone]) Organism Antibiotic Method Susceptibility Escherichia coli Ampicillin [...] INTERPRETATION Susceptible Escherichia coli Cefdinir INTERPRETATION Susceptible us Dem[facility]CRO[facility] - GENERAL O RDERABLES Final Result [facility] [address] [facility] Department [place] [address] from Last 3 Months Insurance [facility] Advance Directives For more information, please contact: [phone] * Full Code (Latest Code Status on File) Date Activated Date Inactivated Comments 05/27/2024 7:34 PM 05/30/2024 3:47 PM Care Teams Principal System Software Engineer Relationship Specialty Start Date End Date No, Physician PCP - General 05/27/24
[2024-07-27 16:49] VITALS: BMI 31.7
--- NOTE | 2024-07-27 16:49 | OBADM ---
This patient, Kellie Gramajo, admitted to the OB room Labor/Delivery/Recovery 104 for observation. Patient/family oriented to hospital policies and general routines including ID bracelet, bed and alarms, visiting hours, pain management, procedures, bathroom and other care routines, personal items, smoking policy, room service/diet, and visiting hours. Patient/Family are encouraged to report perceived risks to care and to ask questions if they do not understand what they are told or what they should do.
[2024-07-27 17:03] VITALS: BP 137/77; PULSE 102
[2024-07-27 18:01] VITALS: BP 127/74; PULSE 97
--- NOTE | 2024-07-28 08:38 | PM.OBTRLD ---
OB - Triage/Final Diagnosis Visit Information Date of evaluation: 07/27/24 Reason for evaluation: threatened labor Comments/Additional reasons for admission: I have assessed the risk for this patient, Kellie Gramajo, and determined that she would benefit from observation care. Evaluation Vital signs: Vital Signs - 24 hr 07/27/24 17:03 07/27/24 18:01 Pulse Rate 102 H 97 Blood Pressure 137/77 127/74
== END 2024-07-27 19:03 | disposition home or self-care (01) ==
PROVIDERS: Admitting Provider Student in an Organized Health Care Education/Training Program; Visit Provider Student in an Organized Health Care Education/Training Program
DX: O47.03 False labor before 37 completed weeks of gestation, third trimester (principal); Z3A.35 35 weeks gestation of pregnancy
CPT/HCPCS: G0378; G0379